=== PATIENT | female | born 1945 | race Caucasian/White ===

== ENCOUNTER 2017-07-30 17:53 | Inpatient (IN) | payer MEDICARE ==
[~2017-07-30] VITALS: Ht 152.4 cm; Wt 58.8 kg
[~2017-07-30 17:53] MED LIST: ASPI-611 PO; CARV3.12 PO; DOCU-28 PO; HYDR12.5 PO; MELO-100 PO; PRAV80TA3 PO; TIZA4CAP PO; WARF2TAB7 PO
[2017-07-30] MEDS ORDERED: normal saline 1000ML IV soln IV ONE ×2 (18:00→19:40)
[2017-07-30 18:19] LABS: HEMATOCRIT 31.9 % (35.0-45.0); HEMOGLOBIN 9.9 g/dl (12.0-16.0); MEAN CORPUSCULAR HEMOGLOBIN 20.5 PG (27.0-31.0); MEAN CORPUSCULAR HGB CONC 31.1 % (33.0-36.5); PLATELET COUNT 334 X10'3 (140-440); RED BLOOD COUNT 4.84 X10'6 (4.20-5.60); RED CELL DISTRIBUTION WIDTH 21.8 % (11.5-14.5); WHITE BLOOD COUNT 11.8 X10'3 (4.5-11.0)
[2017-07-30 18:39] LABS: PROTHROMBIN TIME 113.5 SECONDS (9.0-12.0)
[2017-07-30 18:47] LABS: ALANINE AMINOTRANSFERASE 23 U/L (12-78); ALBUMIN/GLOBULIN RATIO 0.6 (1.1-1.5); ALKALINE PHOSPHATASE 113 IU/L (46-116); ANION GAP 21 (8-16); ASPARTATE AMINO TRANSFERASE 64 U/L (10-37); BILIRUBIN,TOTAL 0.8 MG/DL (0.1-1.0); BLOOD UREA NITROGEN 94 MG/DL (7-18); BUN/CREATININE RATIO 17.8 (6.6-38.0); CALCIUM 9.3 MG/DL (8.5-10.1); CHLORIDE 84 MMOL/L (99-107); CREATININE 5.29 MG/DL (0.40-0.90); GLUCOSE 110 MG/DL (70-104); MAGNESIUM 2.3 MG/DL (1.5-2.4); POTASSIUM 4.3 MMOL/L (3.5-5.1); SODIUM 130 MMOL/L (135-145); TOTAL CARBON DIOXIDE 25.4 MMOL/L (24-32); TOTAL PROTEIN 7.7 G/DL (6.4-8.2); eGFR 8 ML/MIN
[2017-07-30 18:51] LABS: INR > 9.0 INR
[2017-07-30 18:52] LABS: PARTIAL THROMBOPLASTIN TIME 71 SECONDS (22-32)
[2017-07-30 18:54] LABS: CLARITY,URINE Cloudy (Clear); COLOR,URINE Dark Yellow (Yellow); GLUCOSE, URINE Negative (Neg); KETONES,URINE Negative (Neg); LEUKOCYTE ESTERASE ,URINE Trace (Neg); NITRITES, URINE Negative (Neg); OCCULT BLOOD,URINE Moderate (Neg); PROTEIN,URINE 30 mg/dl (Neg)
[2017-07-30 18:55] LABS: UA COLLECTION TYPE FOLEY CATH
[2017-07-30 19:06] LABS: AMORPHOUS URATES 2+; BACTERIA,URINE FEW /HPF (Neg); HYALINE CASTS 0-3 /LPF (NEGATIVE); MUCUS STRANDS FEW /LPF (Neg); RBC,URINE 0-2 /HPF (0-2); SQUAMOUS EPITHELIAL CELL,UR NONE SEEN /LPF (FEW); WBC,URINE NONE SEEN /HPF (0-4)
[2017-07-30 19:18] LABS: TOTAL CELLS COUNTED 100
[2017-07-30 19:19] LABS: ANISOCYTOSIS 3+; MICROCYTOSIS 2+; PLATELET ESTIMATE NORMAL
[2017-07-30 19:20] LABS: TARGET CELLS 1+
[2017-07-30 19:22] LABS: HYPOCHROMASIA 1+; POIKILOCYTOSIS FEW; POLYCHROMASIA 1+
[2017-07-30] MEDS ORDERED: phytonadione inj. 10 MG in normal saline 100ml IV soln 99 ML IV ONE (19:50)
[2017-07-30] MEDS ORDERED: HYDR25TA4 PO (20:20)
[2017-07-30] MEDS ORDERED: PANT40TA4 PO (20:20)
[2017-07-30] MEDS ORDERED: CARV3.122 PO (20:20)
[2017-07-30] MEDS ORDERED: potassium Cl 40MEQ/NS 500ml 500 ML IV PRN ×2 (21:30)
[2017-07-30] MEDS ORDERED: acetaminophen 325mg tablet PO PRN ×2 (21:30)
[2017-07-30] MEDS ORDERED: acetaminophen 650mg rectal suppository RC PRN (21:30)
[2017-07-30] MEDS: K, MAG and/or Phos replacement - Verify level? MC SCH (21:30)
[2017-07-30] MEDS ORDERED: potassium Cl 20 mEq SR tablet PO PRN ×2 (21:30)
[2017-07-30 22:15] VITALS: BP 140/66
[2017-07-30 22:30] VITALS: BP 135/82
[2017-07-30 23:14] VITALS: BP 150/77
[2017-07-31] VITALS (23 sets, daily range): BP systolic 84–175; BP diastolic 63–102
[2017-07-31] MEDS: normal saline 1000ml 1,000 ML IV SCH ×4 (00:21→19:45)
[2017-07-31] MEDS: ondansetron/PF 4mg/2ml inj IV PRN ×2 (01:11→16:59)
[2017-07-31] MEDS ORDERED: piperacillin-tazo 2.25gm/50ml 50 ML IV ONE (02:11)
[2017-07-31] MEDS: piperacillin-tazo 2.25gm/50ml 50 ML IV SCH ×4 (02:46→19:18)
[2017-07-31 05:11] LABS: INR 1.2 INR; PARTIAL THROMBOPLASTIN TIME 39 SECONDS (22-32); PROTHROMBIN TIME 12.8 SECONDS (9.0-12.0)
[2017-07-31 05:13] LABS: BASOPHILS % (AUTO) 0 % (0-1); EOSINOPHILS # (AUTO) 0.1 X10'3 (0-0.9); EOSINOPHILS % (AUTO) 0.7 % (0-6); HEMATOCRIT 25.9 % (35.0-45.0); LYMPHOCYTES # (AUTO) 0.4 X10'3 (1.1-4.8); LYMPHOCYTES % (AUTO) 5.6 % (21-51); MEAN CORPUSCULAR HEMOGLOBIN 20.3 PG (27.0-31.0); MEAN CORPUSCULAR HGB CONC 30.7 % (33.0-36.5); MEAN CORPUSCULAR VOLUME 66.2 FL (78-98); MEAN PLATELET VOLUME 9.7 FL (7.4-10.4); MONOCYTES # (AUTO) 0.6 X10'3 (0-0.9); MONOCYTES % (AUTO) 7.7 % (2-12); NEUTROPHILS # (AUTO) 6.9 X10'3 (1.8-7.7); PLATELET COUNT 312 X10'3 (140-440); RED BLOOD COUNT 3.91 X10'6 (4.20-5.60); RED CELL DISTRIBUTION WIDTH 22.6 % (11.5-14.5)
[2017-07-31 05:18] LABS: ALANINE AMINOTRANSFERASE 14 U/L (12-78); ALBUMIN 2.2 G/DL (3.4-5.0); ALBUMIN/GLOBULIN RATIO 0.6 (1.1-1.5); ALKALINE PHOSPHATASE 81 IU/L (46-116); ANION GAP 19 (8-16); ASPARTATE AMINO TRANSFERASE 42 U/L (10-37); BILIRUBIN,TOTAL 0.6 MG/DL (0.1-1.0); BLOOD UREA NITROGEN 85 MG/DL (7-18); BUN/CREATININE RATIO 20.9 (6.6-38.0); CALCIUM 7.9 MG/DL (8.5-10.1); CHLORIDE 96 MMOL/L (99-107); CREATININE 4.06 MG/DL (0.40-0.90); GLUCOSE 78 MG/DL (70-104); MAGNESIUM 1.9 MG/DL (1.5-2.4); PHOSPHORUS 7.1 MG/DL (2.3-4.5); POTASSIUM 3.8 MMOL/L (3.5-5.1); SODIUM 135 MMOL/L (135-145); TOTAL CARBON DIOXIDE 20.5 MMOL/L (24-32); TOTAL PROTEIN 5.8 G/DL (6.4-8.2); eGFR 11 ML/MIN
[2017-07-31] MEDS: K, MAG and/or Phos replacement - Verify level? MC SCH (07:00)
[2017-07-31] MEDS: pantoprazole 40 MG vial IV SCH (07:39)
[2017-07-31 09:35] LABS: PLATELET ESTIMATE NORMAL
[2017-07-31 09:36] LABS: ANISOCYTOSIS 3+; MICROCYTOSIS 2+
[2017-07-31 09:42] LABS: ELLIPTOCYTES 1+; HYPOCHROMASIA 1+; LARGE PLATELETS FEW; POLYCHROMASIA FEW; TARGET CELLS 2+
[2017-07-31] MEDS ORDERED: ringers solution, lacted 1,000 ML IV ONE (09:55)
[2017-07-31] MEDS: diatr meglu/diatrizoate 30ml oral sol.-(3 dose) bottle PO SCH ×3 (11:02→16:59)
[2017-07-31] MEDS: [UNRECOGNIZED DRUG - OTHER] IV SCH ×3 (11:56→21:19)
[2017-07-31] MEDS: SODIUM BICARBONATE IV SCH ×3 (11:56→21:19)
[2017-07-31] MEDS: POTASSIUM CL IV SCH ×3 (11:56→21:19)
[2017-07-31] MEDS: lactobacillus rhamnosus 10,000 MMU CELLS/CAPSULE PO SCH (12:07)
[2017-07-31] MEDS ORDERED: dextrose 50%-water 50ml dispensing syringe IV ONE (13:40)
[2017-07-31] MEDS ORDERED: clindamycin phosphate 150mg/ml inj. ONE (21:13)
[2017-07-31] MEDS ORDERED: gentamicin 40 MG/1 ML inj ONE (21:13)
[2017-07-31] MEDS ORDERED: fentaNYL/PF 50MCG/1 ML 2ML syringe ONE (21:52)
[2017-07-31] MEDS ORDERED: rocuronium 10mg/ml inj IV ONE ×2 (21:52→23:07)
[2017-07-31] MEDS ORDERED: propofol inj 20 ML IV ONE (21:52)
[2017-08-01] VITALS (26 sets, daily range): BP systolic 92–190; BP diastolic 50–90
[2017-08-01] MEDS ORDERED: ringers solution, lacted 1,000 ML IV SCH (00:39)
[2017-08-01] MEDS ORDERED: normal saline 1000ml 1,000 ML IV ONE ×2 (00:39→15:55)
[2017-08-01] MEDS ORDERED: ondansetron/PF 4mg/2ml inj IV PRN (00:40)
[2017-08-01] MEDS ORDERED: propofol 1000mg/100ml bottle 100 ML IV PRN (01:15)
[2017-08-01] MEDS ORDERED: fentaNYL/NS/PF 2,500mcg/250ml 250 ML IV PRN (01:15)
[2017-08-01 02:06] LABS: ABG BASE EXCESS -10.2 mmol/L (-2.0-3.0); ABG HCO3 16.4 mmol/L (22.0-26.0); ABG OXYGEN SATURATION 93.6 % (95-98); ABG PO2 (T) 78.6 mmHg (83-108); FCOHb 0.6 % (0.5-1.5); FMetHb 0.1 % (0.3-1.12); FO2Hb 92.9 % (94-100); MINUTE VOLUME 6 L/min; PATIENT TEMPERATURE 36.6; PEEP 5 cm H2O; RESPIRATORY RATE 12 b/min; RESPIRATORY RATE (OBSERVED) 12 b/min; TIDAL VOLUME 450 mL; TOTAL HEMOGLOBIN 10.2 G/dl (12.0-16.0)
[2017-08-01 02:27] LABS: BASOPHILS % (AUTO) 0 % (0-1); EOSINOPHILS % (AUTO) 0.2 % (0-6); HEMATOCRIT 31.3 % (35.0-45.0); HEMOGLOBIN 9.6 g/dl (12.0-16.0); LYMPHOCYTES # (AUTO) 0.3 X10'3 (1.1-4.8); LYMPHOCYTES % (AUTO) 3.9 % (21-51); MEAN CORPUSCULAR HEMOGLOBIN 21.5 PG (27.0-31.0); MEAN CORPUSCULAR HGB CONC 30.8 % (33.0-36.5); MEAN CORPUSCULAR VOLUME 69.8 FL (78-98); MEAN PLATELET VOLUME 8.7 FL (7.4-10.4); MONOCYTES # (AUTO) 0.2 X10'3 (0-0.9); MONOCYTES % (AUTO) 3.2 % (2-12); NEUTROPHILS # (AUTO) 6.6 X10'3 (1.8-7.7); NEUTROPHILS % (AUTO) 92.7 % (42-75); PLATELET COUNT 222 X10'3 (140-440); RED BLOOD COUNT 4.49 X10'6 (4.20-5.60); WHITE BLOOD COUNT 7.1 X10'3 (4.5-11.0)
[2017-08-01] MEDS ORDERED: FENTANYL-0.9 % NACL/PF 100 ML IV PRN (02:35)
[2017-08-01 02:44] LABS: ALANINE AMINOTRANSFERASE 14 U/L (12-78); ALBUMIN 1.7 G/DL (3.4-5.0); ALBUMIN/GLOBULIN RATIO 0.5 (1.1-1.5); ALKALINE PHOSPHATASE 59 IU/L (46-116); ANION GAP 15 (8-16); ASPARTATE AMINO TRANSFERASE 30 U/L (10-37); BILIRUBIN,TOTAL 0.7 MG/DL (0.1-1.0); BLOOD UREA NITROGEN 69 MG/DL (7-18); BUN/CREATININE RATIO 22.8 (6.6-38.0); CALCIUM 7.7 MG/DL (8.5-10.1); CHLORIDE 105 MMOL/L (99-107); CREATININE 3.03 MG/DL (0.40-0.90); GLUCOSE 91 MG/DL (70-104); MAGNESIUM 1.6 MG/DL (1.5-2.4); PHOSPHORUS 6.5 MG/DL (2.3-4.5); POTASSIUM 4.4 MMOL/L (3.5-5.1); SODIUM 140 MMOL/L (135-145); TOTAL CARBON DIOXIDE 20.1 MMOL/L (24-32); eGFR 15 ML/MIN
[2017-08-01] MEDS: piperacillin-tazo 2.25gm/50ml 50 ML IV SCH ×4 (02:49→19:26)
[2017-08-01 05:35] LABS: ANISOCYTOSIS 3+; BURR CELLS 1+; ELLIPTOCYTES 1+; HYPOCHROMASIA 1+; MICROCYTOSIS 2+; PLATELET ESTIMATE NORMAL; TARGET CELLS 1+
[2017-08-01] MEDS: lactobacillus rhamnosus 10,000 MMU CELLS/CAPSULE PO SCH ×2 (07:50→17:57)
[2017-08-01] MEDS: pantoprazole 40 MG vial IV SCH (07:50)
[2017-08-01] MEDS: SODIUM BICARBONATE IV SCH ×2 (07:51→19:25)
[2017-08-01] MEDS: [UNRECOGNIZED DRUG - OTHER] IV SCH ×2 (07:51→19:25)
[2017-08-01] MEDS: POTASSIUM CL IV SCH ×2 (07:51→19:25)
[2017-08-01] MEDS: K, MAG and/or Phos replacement - Verify level? MC SCH ×2 (08:00→14:05)
[2017-08-01] MEDS ORDERED: Dextrose 10%-water IV solution 1,000 ML IV PRN (14:02)
[2017-08-01] MEDS ORDERED: potassium Cl 40MEQ/250ML bag 250 ML IV PRN ×2 (14:05)
[2017-08-01] MEDS ORDERED: sodium phosphate inj. 30 MMOL in dextrose 5%-water 250 ML IV PRN (14:05)
[2017-08-01] MEDS ORDERED: magnesium 2GM in 50ml NS 50 ML IV PRN (14:05)
[2017-08-01] MEDS ORDERED: Neutra Phos packet PO PRN (14:05)
[2017-08-01] MEDS ORDERED: sodium phosphate inj. 15 MMOL in dextrose 5%-water 150 ML IV PRN (14:05)
[2017-08-01] MEDS ORDERED: magnesium 4gm in 100ml NS 100 ML IV PRN (14:05)
[2017-08-01] MEDS ORDERED: potassium Cl 20 mEq SR tablet PO PRN ×2 (14:05)
[2017-08-01] MEDS ORDERED: magnesium Cl slow-release 64mg tablet PO PRN (14:05)
[2017-08-01 15:42] LABS: ALANINE AMINOTRANSFERASE 12 U/L (12-78); ALBUMIN 1.4 G/DL (3.4-5.0); ALBUMIN/GLOBULIN RATIO 0.5 (1.1-1.5); ALKALINE PHOSPHATASE 48 IU/L (46-116); ANION GAP 17 (8-16); ASPARTATE AMINO TRANSFERASE 31 U/L (10-37); BILIRUBIN,TOTAL 0.6 MG/DL (0.1-1.0); BLOOD UREA NITROGEN 65 MG/DL (7-18); BUN/CREATININE RATIO 21.6 (6.6-38.0); CALCIUM 7.8 MG/DL (8.5-10.1); CHLORIDE 107 MMOL/L (99-107); CREATININE 3.01 MG/DL (0.40-0.90); GLUCOSE 82 MG/DL (70-104); MAGNESIUM 1.5 MG/DL (1.5-2.4); PHOSPHORUS 5.7 MG/DL (2.3-4.5); POTASSIUM 4.6 MMOL/L (3.5-5.1); PREALBUMIN 8.4 MG/DL (19-36); SODIUM 144 MMOL/L (135-145); TOTAL PROTEIN 4.5 G/DL (6.4-8.2); TRIGLYCERIDES 105 MG/DL (20-135); eGFR 15 ML/MIN
[2017-08-01] MEDS ORDERED: diltiazem-D5W 125mg/125ml 125 ML IV SCH (15:55)
[2017-08-01] MEDS ORDERED: diltiazem 5mg/ml 5ml inj. IV ONE (15:55)
[2017-08-01] MEDS: esmolol/sodium cl bag 250 ML IV SCH (16:41)
[2017-08-01] MEDS: HYDROmorphone inj. 0.5 MG/0.5 ML DISP.SYRIN IV PRN ×2 (16:56→21:53)
[2017-08-02] VITALS (23 sets, daily range): BP systolic 90–133; BP diastolic 54–79
[2017-08-02] MEDS ORDERED: normal saline 1000ml 1,000 ML IV PRN (00:30)
[2017-08-02] MEDS: HYDROmorphone inj. 0.5 MG/0.5 ML DISP.SYRIN IV PRN ×2 (01:20→07:18)
[2017-08-02] MEDS: piperacillin-tazo 2.25gm/50ml 50 ML IV SCH ×4 (01:20→20:15)
[2017-08-02] MEDS ORDERED: HYDROmorphone inj. 0.5 MG/0.5 ML DISP.SYRIN IV ONE (01:30)
[2017-08-02 02:21] LABS: ALANINE AMINOTRANSFERASE 11 U/L (12-78); ALBUMIN 1.4 G/DL (3.4-5.0); ALBUMIN/GLOBULIN RATIO 0.5 (1.1-1.5); ALKALINE PHOSPHATASE 46 IU/L (46-116); ANION GAP 11 (8-16); ASPARTATE AMINO TRANSFERASE 47 U/L (10-37); BILIRUBIN,TOTAL 0.5 MG/DL (0.1-1.0); BLOOD UREA NITROGEN 63 MG/DL (7-18); BUN/CREATININE RATIO 22.7 (6.6-38.0); CALCIUM 7.7 MG/DL (8.5-10.1); CHLORIDE 109 MMOL/L (99-107); CREATININE 2.77 MG/DL (0.40-0.90); GLUCOSE 162 MG/DL (70-104); MAGNESIUM 1.3 MG/DL (1.5-2.4); PHOSPHORUS 5.7 MG/DL (2.3-4.5); POTASSIUM 5.3 MMOL/L (3.5-5.1); SODIUM 141 MMOL/L (135-145); TOTAL CARBON DIOXIDE 21.4 MMOL/L (24-32); TOTAL PROTEIN 4.4 G/DL (6.4-8.2); eGFR 17 ML/MIN
[2017-08-02 02:30] LABS: BASOPHILS % (AUTO) 0.1 % (0-1); EOSINOPHILS % (AUTO) 0.1 % (0-6); HEMATOCRIT 26.1 % (35.0-45.0); HEMOGLOBIN 7.9 g/dl (12.0-16.0); LYMPHOCYTES # (AUTO) 0.5 X10'3 (1.1-4.8); LYMPHOCYTES % (AUTO) 5.1 % (21-51); MEAN CORPUSCULAR HEMOGLOBIN 21.3 PG (27.0-31.0); MEAN CORPUSCULAR HGB CONC 30.4 % (33.0-36.5); MEAN CORPUSCULAR VOLUME 70.2 FL (78-98); MEAN PLATELET VOLUME 10.1 FL (7.4-10.4); MONOCYTES # (AUTO) 0.9 X10'3 (0-0.9); MONOCYTES % (AUTO) 9.2 % (2-12); NEUTROPHILS # (AUTO) 8.8 X10'3 (1.8-7.7); NEUTROPHILS % (AUTO) 85.5 % (42-75); PLATELET COUNT 186 X10'3 (140-440); RED BLOOD COUNT 3.72 X10'6 (4.20-5.60); RED CELL DISTRIBUTION WIDTH 23.7 % (11.5-14.5); WHITE BLOOD COUNT 10.3 X10'3 (4.5-11.0)
[2017-08-02] MEDS: SODIUM BICARBONATE IV SCH (04:26)
[2017-08-02] MEDS: [UNRECOGNIZED DRUG - OTHER] IV SCH (04:26)
[2017-08-02] MEDS: POTASSIUM CL IV SCH (04:26)
[2017-08-02] MEDS: lactobacillus rhamnosus 10,000 MMU CELLS/CAPSULE PO SCH ×2 (07:17→17:21)
[2017-08-02] MEDS: pantoprazole 40 MG vial IV SCH (07:17)
[2017-08-02] MEDS: K, MAG and/or Phos replacement - Verify level? MC SCH (07:41)
[2017-08-02] MEDS ORDERED: dextrose ORAL solution 15 GM/59 ML bottle PO PRN ×2 (13:35)
[2017-08-02] MEDS ORDERED: glucagon, human recombinant 1mg kit SUBCUT PRN (13:35)
[2017-08-02] MEDS ORDERED: albumin (human) 25% 100 ML IV solution IV SCH (13:35)
[2017-08-02] MEDS ORDERED: MESSAGE TO PHARMACY PO ONE (13:35)
[2017-08-02] MEDS ORDERED: dextrose 50%-water 50ml dispensing syringe IV PRN ×2 (13:35)
[2017-08-02 14:16] LABS: OXYGEN SATURATION (MIXED VEN) 70.3 % (60-80); PO2 MIXED VENOUS (TEMP COR) 43.7 mmHg (35-46)
[2017-08-02 14:47] LABS: HEMOGLOBIN A1C 5.8 % (4.5-6.2)
[2017-08-02] MEDS: insulin regular, human vial - multi-dose SQ SCH ×2 (15:20→20:21)
[2017-08-02] MEDS: sodium ferric gluc complex inj 125 MG in normal saline 100ml IV soln 100 ML IV SCH (15:25)
[2017-08-02] MEDS ORDERED: diltiazem-D5W 125mg/125ml 125 ML IV PRN (15:55)
[2017-08-02] MEDS: esmolol/sodium cl bag 250 ML IV SCH (17:22)
[2017-08-02] MEDS: Insulin Detemir pen SQ SCH (20:19)
[2017-08-02 23:55] LABS: BASOPHILS % (AUTO) 0 % (0-1); EOSINOPHILS # (AUTO) 0.2 X10'3 (0-0.9); EOSINOPHILS % (AUTO) 1.3 % (0-6); HEMATOCRIT 24.1 % (35.0-45.0); HEMOGLOBIN 7.4 g/dl (12.0-16.0); LYMPHOCYTES # (AUTO) 0.5 X10'3 (1.1-4.8); LYMPHOCYTES % (AUTO) 4.4 % (21-51); MEAN CORPUSCULAR HEMOGLOBIN 21.4 PG (27.0-31.0); MEAN CORPUSCULAR HGB CONC 30.7 % (33.0-36.5); MEAN CORPUSCULAR VOLUME 69.8 FL (78-98); MEAN PLATELET VOLUME 9.4 FL (7.4-10.4); MONOCYTES # (AUTO) 0.8 X10'3 (0-0.9); MONOCYTES % (AUTO) 6.5 % (2-12); NEUTROPHILS % (AUTO) 87.8 % (42-75); PLATELET COUNT 128 X10'3 (140-440); RED BLOOD COUNT 3.46 X10'6 (4.20-5.60); RED CELL DISTRIBUTION WIDTH 24.6 % (11.5-14.5); WHITE BLOOD COUNT 12.5 X10'3 (4.5-11.0)
[2017-08-03] VITALS (35 sets, daily range): BP systolic 97–166; BP diastolic 45–79
[2017-08-03 00:09] LABS: ALANINE AMINOTRANSFERASE 24 U/L (12-78); ALBUMIN 1.8 G/DL (3.4-5.0); ALBUMIN/GLOBULIN RATIO 0.6 (1.1-1.5); ALKALINE PHOSPHATASE 47 IU/L (46-116); ANION GAP 7 (8-16); ASPARTATE AMINO TRANSFERASE 143 U/L (10-37); BILIRUBIN,TOTAL 0.3 MG/DL (0.1-1.0); BLOOD UREA NITROGEN 74 MG/DL (7-18); BUN/CREATININE RATIO 27.1 (6.6-38.0); CALCIUM 7.6 MG/DL (8.5-10.1); CHLORIDE 108 MMOL/L (99-107); CREATININE 2.73 MG/DL (0.40-0.90); GLUCOSE 149 MG/DL (70-104); MAGNESIUM 2.8 MG/DL (1.5-2.4); SODIUM 139 MMOL/L (135-145); TOTAL CARBON DIOXIDE 24.1 MMOL/L (24-32); TOTAL PROTEIN 4.8 G/DL (6.4-8.2); eGFR 17 ML/MIN
[2017-08-03 00:25] LABS: PARTIAL THROMBOPLASTIN TIME 39 SECONDS (22-32); PROTHROMBIN TIME 10.7 SECONDS (9.0-12.0)
[2017-08-03] MEDS ORDERED: heparin 10,000 units/1 ML INJ ONE (00:45)
[2017-08-03] MEDS ORDERED: ceFAZolin 1000mg inj ONE (00:45)
[2017-08-03] MEDS ORDERED: fentaNYL/PF 50MCG/1 ML 2ML syringe ONE ×2 (01:07→02:14)
[2017-08-03] MEDS ORDERED: midazolam 2 mg/2 ml injection ONE (01:07)
[2017-08-03] MEDS ORDERED: rocuronium 10mg/ml inj IV ONE (01:08)
[2017-08-03] MEDS ORDERED: phenylephrine 10mg/ml inj IV ONE ×2 (01:08→01:11)
[2017-08-03] MEDS ORDERED: etomidate 2mg/ml inj. ONE (01:08)
[2017-08-03] MEDS ORDERED: ringers solution, lacted 1,000 ML IV SCH (01:13)
[2017-08-03] MEDS ORDERED: sevoflurane 250ml liquid IH ONE ×2 (01:15)
[2017-08-03] MEDS ORDERED: heparin 1,000 units/ml 10ml inj ONE (01:15)
[2017-08-03] MEDS ORDERED: ondansetron/PF 4mg/2ml inj IV PRN (01:15)
[2017-08-03] MEDS ORDERED: esmolol 10mg/ml inj IV ONE (01:15)
[2017-08-03 01:46] LABS: ABG BASE EXCESS -8.3 mmol/L (-2.0-3.0); ABG HCO3 18.6 mmol/L (22.0-26.0); ABG PCO2 (T) 45.1 mmHg (32.0-45.0); ABG PH (T) 7.234 (7.350-7.450); ABG PO2 (T) 200.1 mmHg (83-108); FCOHb 0.8 % (0.5-1.5); FMetHb 0.2 % (0.3-1.12); TOTAL HEMOGLOBIN 7.8 G/dl (12.0-16.0)
[2017-08-03] MEDS ORDERED: sodium bicarbonate 1 MEQ/1 ml inj ONE ×2 (01:47)
[2017-08-03] MEDS: piperacillin-tazo 2.25gm/50ml 50 ML IV SCH ×4 (02:00→20:35)
[2017-08-03] MEDS ORDERED: heparin 1,000unit/ml 10ml vial 10 ML ONE (02:04)
[2017-08-03] MEDS ORDERED: MIDAZolam 1mg/ml 10ml vial ONE (02:13)
[2017-08-03 03:22] LABS: NUCLEATED RED BLOOD CELLS 1 /100WBC (0-0); TOTAL CELLS COUNTED 100
[2017-08-03 03:23] LABS: ANISOCYTOSIS 3+; ELLIPTOCYTES 1+; HYPOCHROMASIA 1+; MICROCYTOSIS 2+; PLATELET ESTIMATE DECREASED; TARGET CELLS FEW
[2017-08-03 05:20] LABS: INR 1.2 INR; PROTHROMBIN TIME 11.9 SECONDS (9.0-12.0)
[2017-08-03] MEDS ORDERED: fentaNYL/NS/PF 2,500mcg/250ml 250 ML IV PRN (05:25)
[2017-08-03] MEDS ORDERED: propofol 1000mg/100ml bottle 100 ML IV PRN (05:25)
[2017-08-03] MEDS ORDERED: amiodarone/D5 450MG/250ML BAG 250 ML IV SCH (05:40)
[2017-08-03] MEDS ORDERED: amiodarone 150mg/dext, iso-os 100 ML IV ONE ×2 (05:40→06:30)
[2017-08-03 05:50] LABS: ABG BASE EXCESS -4.6 mmol/L (-2.0-3.0); ABG HCO3 20.8 mmol/L (22.0-26.0); ABG OXYGEN SATURATION 95.3 % (95-98); ABG PCO2 (T) 39.8 mmHg (32.0-45.0); ABG PH (T) 7.337 (7.350-7.450); ABG PO2 (T) 93.7 mmHg (83-108); FCOHb 1.1 % (0.5-1.5); FMetHb 0.3 % (0.3-1.12); MINUTE VOLUME 7 L/min; PEEP 5 cm H2O; RESPIRATORY RATE 12 b/min; RESPIRATORY RATE (OBSERVED) 12 b/min; TIDAL VOLUME 500 mL; TOTAL HEMOGLOBIN 6.3 G/dl (12.0-16.0)
[2017-08-03 06:01] LABS: BASOPHILS % (AUTO) 0.1 % (0-1); EOSINOPHILS # (AUTO) 0.5 X10'3 (0-0.9); EOSINOPHILS % (AUTO) 3.6 % (0-6); LYMPHOCYTES # (AUTO) 0.8 X10'3 (1.1-4.8); LYMPHOCYTES % (AUTO) 5.8 % (21-51); MEAN CORPUSCULAR HEMOGLOBIN 21.6 PG (27.0-31.0); MEAN CORPUSCULAR HGB CONC 30.9 % (33.0-36.5); MEAN CORPUSCULAR VOLUME 69.8 FL (78-98); MEAN PLATELET VOLUME 10.1 FL (7.4-10.4); MONOCYTES % (AUTO) 7.2 % (2-12); NEUTROPHILS # (AUTO) 11.8 X10'3 (1.8-7.7); NEUTROPHILS % (AUTO) 83.3 % (42-75); PLATELET COUNT 119 X10'3 (140-440); RED BLOOD COUNT 2.79 X10'6 (4.20-5.60); RED CELL DISTRIBUTION WIDTH 24.7 % (11.5-14.5); WHITE BLOOD COUNT 14.1 X10'3 (4.5-11.0)
[2017-08-03] MEDS ORDERED: amiodarone/D5 360MG/200ML BAG 250 ML IV SCH (06:35)
[2017-08-03 06:52] LABS: HEMATOCRIT 19.5 % (35.0-45.0)
[2017-08-03 07:11] LABS: ANISOCYTOSIS 3+; BANDS% (MANUAL) 1 % (0-10); EOSINOPHILS % (MANUAL) 4 % (0-6); HYPOCHROMASIA 2+; LYMPHOCYTES % (MANUAL) 4 % (21-51); MICROCYTOSIS 2+; MONOCYTES % (MANUAL) 4 % (2-12); NEUTROPHILS % (MANUAL) 87 % (42-75); NUCLEATED RED BLOOD CELLS 2 /100WBC (0-0); PLATELET ESTIMATE DECREASED; TOTAL CELLS COUNTED 100
[2017-08-03 07:12] LABS: ELLIPTOCYTES FEW; SCHISTOCYTES FEW; TOXIC GRANULATION 1+
[2017-08-03 07:21] LABS: ALANINE AMINOTRANSFERASE 24 U/L (12-78); ALBUMIN 1.9 G/DL (3.4-5.0); ALBUMIN/GLOBULIN RATIO 0.8 (1.1-1.5); ALKALINE PHOSPHATASE 37 IU/L (46-116); ANION GAP 10 (8-16); ASPARTATE AMINO TRANSFERASE 213 U/L (10-37); BILIRUBIN,TOTAL 0.3 MG/DL (0.1-1.0); BLOOD UREA NITROGEN 75 MG/DL (7-18); BUN/CREATININE RATIO 29.5 (6.6-38.0); CALCIUM 7.3 MG/DL (8.5-10.1); CHLORIDE 110 MMOL/L (99-107); CREATININE 2.54 MG/DL (0.40-0.90); GLUCOSE 146 MG/DL (70-104); MAGNESIUM 2.7 MG/DL (1.5-2.4); PHOSPHORUS 5.3 MG/DL (2.3-4.5); POTASSIUM 4.6 MMOL/L (3.5-5.1); PREALBUMIN 8.8 MG/DL (19-36); SODIUM 144 MMOL/L (135-145); TOTAL CARBON DIOXIDE 24.2 MMOL/L (24-32); TOTAL PROTEIN 4.3 G/DL (6.4-8.2); TRIGLYCERIDES 56 MG/DL (20-135); eGFR 19 ML/MIN
[2017-08-03 07:33] LABS: PARTIAL THROMBOPLASTIN TIME 66 SECONDS (22-32)
[2017-08-03] MEDS ORDERED: heparin 10,000 units/1 ML INJ IV PRN (07:55)
[2017-08-03] MEDS: K, MAG and/or Phos replacement - Verify level? MC SCH (08:00)
[2017-08-03] MEDS: pantoprazole 40 MG vial IV SCH (08:28)
[2017-08-03] MEDS: lactobacillus rhamnosus 10,000 MMU CELLS/CAPSULE PO SCH (08:29)
[2017-08-03] MEDS: sodium ferric gluc complex inj 125 MG in normal saline 100ml IV soln 100 ML IV SCH (08:29)
[2017-08-03] MEDS: insulin regular, human vial - multi-dose SQ SCH ×3 (08:48→20:30)
[2017-08-03] MEDS: albumin (human) 25% 100 ML IV solution IV SCH ×2 (11:01→14:00)
[2017-08-03] MEDS: amiodarone/D5 450MG/250ML BAG 250 ML IV SCH (13:01)
[2017-08-03] MEDS: fat emulsion IV 100 ML, MVI, adult No.4 with vit. K 5 ML, Trace element-5 inj. 0.5 ML i... IV SCH ×4 (14:08)
[2017-08-03 18:27] LABS: HEMATOCRIT 30.9 % (35.0-45.0); HEMOGLOBIN 9.9 g/dl (12.0-16.0); MEAN CORPUSCULAR HEMOGLOBIN 24.6 PG (27.0-31.0); MEAN CORPUSCULAR VOLUME 76.7 FL (78-98); MEAN PLATELET VOLUME 11.2 FL (7.4-10.4); PLATELET COUNT 85 X10'3 (140-440); RED BLOOD COUNT 4.02 X10'6 (4.20-5.60); RED CELL DISTRIBUTION WIDTH 24.4 % (11.5-14.5); WHITE BLOOD COUNT 16.6 X10'3 (4.5-11.0)
[2017-08-03] MEDS: FENTANYL-0.9 % NACL/PF 100 ML IV PRN (19:37)
[2017-08-03] MEDS: Insulin Detemir pen SQ SCH (20:28)
[2017-08-04] VITALS (24 sets, daily range): BP systolic 134–170; BP diastolic 60–75
[2017-08-04] MEDS: fat emulsion IV 100 ML, MVI, adult No.4 with vit. K 5 ML, Trace element-5 inj. 0.5 ML i... IV SCH ×8 (01:00→15:36)
[2017-08-04] MEDS: amiodarone/D5 450MG/250ML BAG 250 ML IV SCH ×2 (01:01→16:38)
[2017-08-04] MEDS: piperacillin-tazo 2.25gm/50ml 50 ML IV SCH ×4 (02:21→19:57)
[2017-08-04] MEDS: insulin regular, human vial - multi-dose SQ SCH ×3 (02:26→20:03)
[2017-08-04] MEDS: argatroban in NS 50mg/50ml 50 ML IV SCH ×3 (02:55→07:03)
[2017-08-04 03:03] LABS: BASOPHILS % (AUTO) 0.1 % (0-1); EOSINOPHILS # (AUTO) 0.1 X10'3 (0-0.9); EOSINOPHILS % (AUTO) 0.4 % (0-6); HEMATOCRIT 29.4 % (35.0-45.0); HEMOGLOBIN 9.5 g/dl (12.0-16.0); LYMPHOCYTES # (AUTO) 0.7 X10'3 (1.1-4.8); MEAN CORPUSCULAR HEMOGLOBIN 24.8 PG (27.0-31.0); MEAN CORPUSCULAR HGB CONC 32.4 % (33.0-36.5); MEAN CORPUSCULAR VOLUME 76.4 FL (78-98); MEAN PLATELET VOLUME 11.8 FL (7.4-10.4); MONOCYTES # (AUTO) 1.5 X10'3 (0-0.9); MONOCYTES % (AUTO) 9.1 % (2-12); NEUTROPHILS # (AUTO) 14.2 X10'3 (1.8-7.7); NEUTROPHILS % (AUTO) 86.4 % (42-75); PLATELET COUNT 72 X10'3 (140-440); RED BLOOD COUNT 3.85 X10'6 (4.20-5.60); RED CELL DISTRIBUTION WIDTH 24.5 % (11.5-14.5); WHITE BLOOD COUNT 16.4 X10'3 (4.5-11.0)
[2017-08-04 03:15] LABS: ABG BASE EXCESS -6.6 mmol/L (-2.0-3.0); ABG HCO3 18.8 mmol/L (22.0-26.0); ABG OXYGEN SATURATION 93.6 % (95-98); ABG PCO2 (T) 37.4 mmHg (32.0-45.0); ABG PO2 (T) 78.4 mmHg (83-108); FMetHb 0.2 % (0.3-1.12); FO2Hb 93.4 % (94-100); MINUTE VOLUME 7 L/min; PATIENT TEMPERATURE 37.2; PEEP 5 cm H2O; RESPIRATORY RATE 12 b/min; RESPIRATORY RATE (OBSERVED) 12 b/min; TIDAL VOLUME 400 mL
[2017-08-04 03:22] LABS: LARGE PLATELETS FEW
[2017-08-04 03:23] LABS: PLATELET ESTIMATE DECREASED
[2017-08-04 03:30] LABS: PARTIAL THROMBOPLASTIN TIME 98 SECONDS (22-32)
[2017-08-04 03:33] LABS: ALANINE AMINOTRANSFERASE 53 U/L (12-78); ALBUMIN 1.8 G/DL (3.4-5.0); ALBUMIN/GLOBULIN RATIO 0.7 (1.1-1.5); ALKALINE PHOSPHATASE 44 IU/L (46-116); ANION GAP 10 (8-16); ASPARTATE AMINO TRANSFERASE 374 U/L (10-37); BILIRUBIN,TOTAL 0.4 MG/DL (0.1-1.0); BLOOD UREA NITROGEN 82 MG/DL (7-18); BUN/CREATININE RATIO 32.3 (6.6-38.0); CALCIUM 7.4 MG/DL (8.5-10.1); CHLORIDE 108 MMOL/L (99-107); CREATININE 2.54 MG/DL (0.40-0.90); GLUCOSE 116 MG/DL (70-104); MAGNESIUM 2.4 MG/DL (1.5-2.4); PHOSPHORUS 5.7 MG/DL (2.3-4.5); POTASSIUM 4.4 MMOL/L (3.5-5.1); SODIUM 142 MMOL/L (135-145); TOTAL CARBON DIOXIDE 24.5 MMOL/L (24-32); TOTAL PROTEIN 4.3 G/DL (6.4-8.2); eGFR 19 ML/MIN
[2017-08-04] MEDS: albumin (human) 25% 100 ML IV solution IV SCH ×2 (04:57→10:00)
[2017-08-04] MEDS: FENTANYL-0.9 % NACL/PF 100 ML IV PRN (06:47)
[2017-08-04] MEDS: LACTOBACILLUS RHAMNOSUS GG 15 billion unit sprinkle caps PO SCH (08:00)
[2017-08-04] MEDS: K, MAG and/or Phos replacement - Verify level? MC SCH (08:00)
[2017-08-04] MEDS: sodium ferric gluc complex inj 125 MG in normal saline 100ml IV soln 100 ML IV SCH (08:00)
[2017-08-04] MEDS: pantoprazole 40 MG vial IV SCH (08:00)
[2017-08-04 08:02] LABS: PARTIAL THROMBOPLASTIN TIME 120 SECONDS (22-32)
[2017-08-04 09:35] LABS: HEMATOCRIT 26.5 % (35.0-45.0); HEMOGLOBIN 8.6 g/dl (12.0-16.0); MEAN CORPUSCULAR HEMOGLOBIN 24.7 PG (27.0-31.0); MEAN CORPUSCULAR HGB CONC 32.3 % (33.0-36.5); MEAN CORPUSCULAR VOLUME 76.6 FL (78-98); MEAN PLATELET VOLUME 9.9 FL (7.4-10.4); PLATELET COUNT 55 X10'3 (140-440); RED BLOOD COUNT 3.46 X10'6 (4.20-5.60); RED CELL DISTRIBUTION WIDTH 24.3 % (11.5-14.5); WHITE BLOOD COUNT 16.2 X10'3 (4.5-11.0)
[2017-08-04 11:11] LABS: PARTIAL THROMBOPLASTIN TIME > 153 SECONDS (22-32)
[2017-08-04] MEDS ORDERED: albumin (human) 25% 100 ML IV solution IV ONE (12:15)
[2017-08-04] MEDS: methylnaltrexone br 12mg/0.6ml inj***SubQ only SQ SCH (12:20)
[2017-08-04 12:39] LABS: PARTIAL THROMBOPLASTIN TIME > 153 SECONDS (22-32)
[2017-08-04] MEDS: LORazepam 2 mg/ml vial IV PRN ×2 (12:48→17:26)
[2017-08-04] MEDS: HYDROmorphone inj. 0.5 MG/0.5 ML DISP.SYRIN IV PRN (14:57)
[2017-08-04 16:23] LABS: PARTIAL THROMBOPLASTIN TIME 106 SECONDS (22-32)
[2017-08-04 17:54] LABS: PARTIAL THROMBOPLASTIN TIME 99 SECONDS (22-32)
[2017-08-04 18:33] LABS: HEMATOCRIT 25.3 % (35.0-45.0); HEMOGLOBIN 8.1 g/dl (12.0-16.0); MEAN CORPUSCULAR HEMOGLOBIN 24.7 PG (27.0-31.0); MEAN CORPUSCULAR HGB CONC 32.2 % (33.0-36.5); MEAN CORPUSCULAR VOLUME 76.8 FL (78-98); MEAN PLATELET VOLUME 9.9 FL (7.4-10.4); PLATELET COUNT 59 X10'3 (140-440); RED BLOOD COUNT 3.29 X10'6 (4.20-5.60); RED CELL DISTRIBUTION WIDTH 25.5 % (11.5-14.5); WHITE BLOOD COUNT 19.9 X10'3 (4.5-11.0)
[2017-08-04] MEDS: Insulin Detemir pen SQ SCH (20:03)
[2017-08-04 20:22] LABS: PARTIAL THROMBOPLASTIN TIME 87 SECONDS (22-32)
[2017-08-04 22:40] LABS: PARTIAL THROMBOPLASTIN TIME 84 SECONDS (22-32)
[2017-08-05] VITALS (24 sets, daily range): BP systolic 144–188; BP diastolic 60–86
[2017-08-05] MEDS: piperacillin-tazo 2.25gm/50ml 50 ML IV SCH ×4 (02:28→19:32)
[2017-08-05] MEDS: insulin regular, human vial - multi-dose SQ SCH ×4 (02:29→20:36)
[2017-08-05 02:32] LABS: HEMOGLOBIN 8.2 g/dl (12.0-16.0); MEAN CORPUSCULAR HGB CONC 32.8 % (33.0-36.5); MEAN CORPUSCULAR VOLUME 76.4 FL (78-98); MEAN PLATELET VOLUME 10.3 FL (7.4-10.4); PLATELET COUNT 54 X10'3 (140-440); RED BLOOD COUNT 3.28 X10'6 (4.20-5.60); RED CELL DISTRIBUTION WIDTH 25.5 % (11.5-14.5); WHITE BLOOD COUNT 20.2 X10'3 (4.5-11.0)
[2017-08-05 02:40] LABS: PARTIAL THROMBOPLASTIN TIME 68 SECONDS (22-32)
[2017-08-05 03:21] LABS: ABG BASE EXCESS -5.4 mmol/L (-2.0-3.0); ABG OXYGEN SATURATION 94.9 % (95-98); ABG PCO2 (T) 33.3 mmHg (32.0-45.0); ABG PH (T) 7.376 (7.350-7.450); ABG PO2 (T) 83.3 mmHg (83-108); FCOHb 0.4 % (0.5-1.5); FO2Hb 94.5 % (94-100); MINUTE VOLUME 6 L/min; PATIENT TEMPERATURE 37.2; PEEP 5 cm H2O; RESPIRATORY RATE 12 b/min; RESPIRATORY RATE (OBSERVED) 15 b/min; TIDAL VOLUME 500 mL; TOTAL HEMOGLOBIN 8.8 G/dl (12.0-16.0)
[2017-08-05] MEDS: fat emulsion IV 100 ML, MVI, adult No.4 with vit. K 5 ML, Trace element-5 inj. 0.5 ML i... IV SCH ×8 (03:36→17:06)
[2017-08-05 05:01] LABS: BASOPHILS % (AUTO) 0 % (0-1); EOSINOPHILS # (AUTO) 0.6 X10'3 (0-0.9); EOSINOPHILS % (AUTO) 3.2 % (0-6); HEMOGLOBIN 7.9 g/dl (12.0-16.0); LYMPHOCYTES # (AUTO) 0.6 X10'3 (1.1-4.8); LYMPHOCYTES % (AUTO) 2.8 % (21-51); MEAN CORPUSCULAR HGB CONC 32.8 % (33.0-36.5); MEAN CORPUSCULAR VOLUME 76.1 FL (78-98); MEAN PLATELET VOLUME 10.3 FL (7.4-10.4); MONOCYTES # (AUTO) 0.7 X10'3 (0-0.9); MONOCYTES % (AUTO) 3.6 % (2-12); NEUTROPHILS # (AUTO) 18.1 X10'3 (1.8-7.7); NEUTROPHILS % (AUTO) 90.4 % (42-75); PLATELET COUNT 57 X10'3 (140-440); RED BLOOD COUNT 3.16 X10'6 (4.20-5.60); RED CELL DISTRIBUTION WIDTH 25.4 % (11.5-14.5)
[2017-08-05 05:26] LABS: ALANINE AMINOTRANSFERASE 46 U/L (12-78); ALBUMIN/GLOBULIN RATIO 0.8 (1.1-1.5); ALKALINE PHOSPHATASE 52 IU/L (46-116); ANION GAP 10 (8-16); ASPARTATE AMINO TRANSFERASE 281 U/L (10-37); BILIRUBIN,TOTAL 0.4 MG/DL (0.1-1.0); BLOOD UREA NITROGEN 93 MG/DL (7-18); BUN/CREATININE RATIO 36.3 (6.6-38.0); CALCIUM 7.7 MG/DL (8.5-10.1); CHLORIDE 104 MMOL/L (99-107); CREATININE 2.56 MG/DL (0.40-0.90); GLUCOSE 94 MG/DL (70-104); MAGNESIUM 2.1 MG/DL (1.5-2.4); PHOSPHORUS 6.3 MG/DL (2.3-4.5); POTASSIUM 3.8 MMOL/L (3.5-5.1); SODIUM 138 MMOL/L (135-145); TOTAL CARBON DIOXIDE 24.3 MMOL/L (24-32); TOTAL PROTEIN 4.4 G/DL (6.4-8.2); eGFR 18 ML/MIN
[2017-08-05 05:31] LABS: PARTIAL THROMBOPLASTIN TIME 89 SECONDS (22-32)
[2017-08-05] MEDS: argatroban in NS 50mg/50ml 50 ML IV SCH ×4 (05:39→17:06)
[2017-08-05] MEDS: K, MAG and/or Phos replacement - Verify level? MC SCH (07:49)
[2017-08-05] MEDS: amiodarone/D5 450MG/250ML BAG 250 ML IV SCH ×2 (08:13→21:32)
[2017-08-05 08:30] LABS: PARTIAL THROMBOPLASTIN TIME 77 SECONDS (22-32)
[2017-08-05] MEDS: sodium ferric gluc complex inj 125 MG in normal saline 100ml IV soln 100 ML IV SCH (08:55)
[2017-08-05] MEDS: LACTOBACILLUS RHAMNOSUS GG 15 billion unit sprinkle caps PO SCH (08:55)
[2017-08-05] MEDS: pantoprazole 40 MG vial IV SCH (08:55)
[2017-08-05 08:58] LABS: HEMOGLOBIN 8.2 g/dl (12.0-16.0); MEAN CORPUSCULAR HEMOGLOBIN 25.1 PG (27.0-31.0); MEAN CORPUSCULAR HGB CONC 32.8 % (33.0-36.5); MEAN CORPUSCULAR VOLUME 76.4 FL (78-98); MEAN PLATELET VOLUME 10.1 FL (7.4-10.4); PLATELET COUNT 59 X10'3 (140-440); RED BLOOD COUNT 3.27 X10'6 (4.20-5.60); WHITE BLOOD COUNT 21.7 X10'3 (4.5-11.0)
[2017-08-05] MEDS ORDERED: metoclopramide 5 mg/ml inj IV PRN (10:50)
[2017-08-05] MEDS: HYDROmorphone 1 mg/ml syringe IV PRN ×6 (11:27→23:53)
[2017-08-05 17:47] LABS: HEMATOCRIT 25.4 % (35.0-45.0); HEMOGLOBIN 8.3 g/dl (12.0-16.0); MEAN CORPUSCULAR HEMOGLOBIN 25.1 PG (27.0-31.0); MEAN CORPUSCULAR HGB CONC 32.7 % (33.0-36.5); MEAN CORPUSCULAR VOLUME 76.8 FL (78-98); MEAN PLATELET VOLUME 10.9 FL (7.4-10.4); PLATELET COUNT 67 X10'3 (140-440); RED CELL DISTRIBUTION WIDTH 25.7 % (11.5-14.5); WHITE BLOOD COUNT 24.9 X10'3 (4.5-11.0)
[2017-08-05] MEDS: Insulin Detemir pen SQ SCH (20:37)
[2017-08-06] VITALS (24 sets, daily range): BP systolic 100–180; BP diastolic 50–97
[2017-08-06] MEDS: piperacillin-tazo 2.25gm/50ml 50 ML IV SCH ×4 (01:54→20:16)
[2017-08-06] MEDS: insulin regular, human vial - multi-dose SQ SCH ×2 (01:58→20:23)
[2017-08-06] MEDS ORDERED: hydrALAZINE 20mg/ml inj. IV ONE (02:20)
[2017-08-06 02:45] LABS: BASOPHILS % (AUTO) 0 % (0-1); EOSINOPHILS # (AUTO) 0.9 X10'3 (0-0.9); EOSINOPHILS % (AUTO) 3.5 % (0-6); HEMATOCRIT 26.9 % (35.0-45.0); HEMOGLOBIN 8.7 g/dl (12.0-16.0); LYMPHOCYTES # (AUTO) 0.7 X10'3 (1.1-4.8); LYMPHOCYTES % (AUTO) 2.8 % (21-51); MEAN CORPUSCULAR HGB CONC 32.4 % (33.0-36.5); MEAN CORPUSCULAR VOLUME 77.2 FL (78-98); MEAN PLATELET VOLUME 14.3 FL (7.4-10.4); MONOCYTES # (AUTO) 0.3 X10'3 (0-0.9); MONOCYTES % (AUTO) 1.3 % (2-12); NEUTROPHILS # (AUTO) 22.8 X10'3 (1.8-7.7); NEUTROPHILS % (AUTO) 92.4 % (42-75); PLATELET COUNT 98 X10'3 (140-440); RED BLOOD COUNT 3.48 X10'6 (4.20-5.60); RED CELL DISTRIBUTION WIDTH 26.1 % (11.5-14.5); WHITE BLOOD COUNT 24.7 X10'3 (4.5-11.0)
[2017-08-06 03:55] LABS: ALANINE AMINOTRANSFERASE 43 U/L (12-78); ALBUMIN 1.9 G/DL (3.4-5.0); ALBUMIN/GLOBULIN RATIO 0.6 (1.1-1.5); ALKALINE PHOSPHATASE 69 IU/L (46-116); ANION GAP 11 (8-16); ASPARTATE AMINO TRANSFERASE 224 U/L (10-37); BILIRUBIN,TOTAL 0.4 MG/DL (0.1-1.0); BLOOD UREA NITROGEN 95 MG/DL (7-18); BUN/CREATININE RATIO 37.1 (6.6-38.0); CALCIUM 7.9 MG/DL (8.5-10.1); CHLORIDE 102 MMOL/L (99-107); CREATININE 2.56 MG/DL (0.40-0.90); GLUCOSE 104 MG/DL (70-104); PHOSPHORUS 6.8 MG/DL (2.3-4.5); POTASSIUM 3.8 MMOL/L (3.5-5.1); SODIUM 136 MMOL/L (135-145); TOTAL CARBON DIOXIDE 22.6 MMOL/L (24-32); TOTAL PROTEIN 5.1 G/DL (6.4-8.2); eGFR 18 ML/MIN
[2017-08-06 03:57] LABS: ANISOCYTOSIS 3+; NUCLEATED RED BLOOD CELLS 1 /100WBC (0-0); PLATELET ESTIMATE DECREASED; TOTAL CELLS COUNTED 100
[2017-08-06 03:58] LABS: ELLIPTOCYTES 1+; POLYCHROMASIA FEW; TARGET CELLS FEW
[2017-08-06 03:59] LABS: POIKILOCYTOSIS 1+; SCHISTOCYTES FEW; TEAR DROP CELLS FEW
[2017-08-06] MEDS: LACTOBACILLUS RHAMNOSUS GG 15 billion unit sprinkle caps PO SCH (07:30)
[2017-08-06] MEDS: pantoprazole 40 MG vial IV SCH (07:34)
[2017-08-06] MEDS: methylnaltrexone br 12mg/0.6ml inj***SubQ only SQ SCH (07:34)
[2017-08-06] MEDS: K, MAG and/or Phos replacement - Verify level? MC SCH (07:47)
[2017-08-06] MEDS: sodium ferric gluc complex inj 125 MG in normal saline 100ml IV soln 100 ML IV SCH (08:24)
[2017-08-06] MEDS: HYDROmorphone 1 mg/ml syringe IV PRN ×5 (08:26→20:17)
[2017-08-06] MEDS ORDERED: fat emulsion IV 100 ML, MVI, adult No.4 with vit. K 5 ML, Trace element-5 inj. 0.5 ML i... IV SCH ×4 (14:02)
[2017-08-06] MEDS: hydrALAZINE 20mg/ml inj. IV PRN (14:43)
[2017-08-06 14:56] LABS: CREATININE,URINE RANDOM 16.3 MG/DL; TOTAL PROTEIN,URINE RANDOM 36.7 MG/DL
[2017-08-06] MEDS: Insulin Detemir pen SQ SCH (20:23)
[2017-08-06] MEDS ORDERED: amiodarone inj. 450 MG in dextrose 5%-water 241 ML IV SCH (22:05)
[2017-08-06] MEDS: amiodarone/D5 450MG/250ML BAG 250 ML IV SCH (23:04)
[2017-08-06 23:48] LABS: PARTIAL THROMBOPLASTIN TIME 50 SECONDS (22-32); PROTHROMBIN TIME 10.7 SECONDS (9.0-12.0)
[2017-08-07] VITALS (22 sets, daily range): BP systolic 111–170; BP diastolic 42–86
[2017-08-07] MEDS: piperacillin-tazo 2.25gm/50ml 50 ML IV SCH ×4 (02:24→21:34)
[2017-08-07] MEDS: HYDROmorphone 1 mg/ml syringe IV PRN ×4 (02:34→22:48)
[2017-08-07 03:17] LABS: BASOPHILS % (AUTO) 0 % (0-1); EOSINOPHILS # (AUTO) 0.5 X10'3 (0-0.9); HEMATOCRIT 27.9 % (35.0-45.0); HEMOGLOBIN 8.9 g/dl (12.0-16.0); LYMPHOCYTES # (AUTO) 0.7 X10'3 (1.1-4.8); LYMPHOCYTES % (AUTO) 2.9 % (21-51); MEAN CORPUSCULAR HEMOGLOBIN 24.7 PG (27.0-31.0); MEAN CORPUSCULAR HGB CONC 31.7 % (33.0-36.5); MEAN CORPUSCULAR VOLUME 77.8 FL (78-98); MEAN PLATELET VOLUME 10.1 FL (7.4-10.4); MONOCYTES # (AUTO) 1.4 X10'3 (0-0.9); MONOCYTES % (AUTO) 6.1 % (2-12); NEUTROPHILS # (AUTO) 20.7 X10'3 (1.8-7.7); PLATELET COUNT 92 X10'3 (140-440); RED BLOOD COUNT 3.59 X10'6 (4.20-5.60); RED CELL DISTRIBUTION WIDTH 26.5 % (11.5-14.5); WHITE BLOOD COUNT 23.2 X10'3 (4.5-11.0)
[2017-08-07 03:42] LABS: ALANINE AMINOTRANSFERASE 25 U/L (12-78); ALBUMIN 1.7 G/DL (3.4-5.0); ALBUMIN/GLOBULIN RATIO 0.5 (1.1-1.5); ALKALINE PHOSPHATASE 66 IU/L (46-116); ANION GAP 13 (8-16); ASPARTATE AMINO TRANSFERASE 173 U/L (10-37); BILIRUBIN,TOTAL 0.4 MG/DL (0.1-1.0); BLOOD UREA NITROGEN 97 MG/DL (7-18); BUN/CREATININE RATIO 42.4 (6.6-38.0); CALCIUM 7.9 MG/DL (8.5-10.1); CHLORIDE 103 MMOL/L (99-107); CREATININE 2.29 MG/DL (0.40-0.90); GLUCOSE 97 MG/DL (70-104); MAGNESIUM 1.7 MG/DL (1.5-2.4); POTASSIUM 3.5 MMOL/L (3.5-5.1); PREALBUMIN 10.7 MG/DL (19-36); SODIUM 137 MMOL/L (135-145); TOTAL CARBON DIOXIDE 21.4 MMOL/L (24-32); TRIGLYCERIDES 122 MG/DL (20-135); eGFR 21 ML/MIN
[2017-08-07 06:09] LABS: ANISOCYTOSIS 3+; PLATELET ESTIMATE DECREASED; POIKILOCYTOSIS 1+; POLYCHROMASIA FEW; TOTAL CELLS COUNTED 100
[2017-08-07 06:10] LABS: ELLIPTOCYTES FEW; SCHISTOCYTES FEW; TARGET CELLS FEW; TEAR DROP CELLS 1+
[2017-08-07 06:39] LABS: UREA NITROGEN 24HR,URINE 11.2 GM/24HR (7-20)
[2017-08-07] MEDS: argatroban in NS 50mg/50ml 50 ML IV SCH ×3 (06:54→21:49)
[2017-08-07] MEDS: K, MAG and/or Phos replacement - Verify level? MC SCH (07:15)
[2017-08-07] MEDS ORDERED: methylnaltrexone br 12mg/0.6ml inj***SubQ only SQ SCH (08:00)
[2017-08-07] MEDS: pantoprazole 40 MG vial IV SCH (08:32)
[2017-08-07] MEDS: LACTOBACILLUS RHAMNOSUS GG 15 billion unit sprinkle caps PO SCH (08:32)
[2017-08-07] MEDS: sodium ferric gluc complex inj 125 MG in normal saline 100ml IV soln 100 ML IV SCH (08:40)
[2017-08-07] MEDS ORDERED: COU1T PO (12:20)
[2017-08-07] MEDS ORDERED: HYDR-565 PO (12:28)
[2017-08-07] MEDS ORDERED: METH750T3 PO (12:28)
[2017-08-07] MEDS ORDERED: HYDR25TA4 PO (12:29)
[2017-08-07] MEDS ORDERED: WARF3TAB7 PO (12:37)
[2017-08-07] MEDS ORDERED: HYDR-3972 PO (12:39)
[2017-08-07] MEDS: amiodarone/D5 450MG/250ML BAG 250 ML IV SCH (13:19)
[2017-08-07] MEDS ORDERED: amiodarone 200mg tablet PO ONE (16:25)
[2017-08-07] MEDS: hydrALAZINE 20mg/ml inj. IV PRN (18:36)
[2017-08-07 21:36] LABS: PARTIAL THROMBOPLASTIN TIME 38 SECONDS (22-32)
[2017-08-08 00:05] LABS: PARTIAL THROMBOPLASTIN TIME 31 SECONDS (22-32)
[2017-08-08] MEDS: argatroban in NS 50mg/50ml 50 ML IV SCH ×3 (00:19→05:05)
[2017-08-08] MEDS: HYDROmorphone 1 mg/ml syringe IV PRN ×3 (02:46→14:02)
[2017-08-08] MEDS: piperacillin-tazo 2.25gm/50ml 50 ML IV SCH ×2 (02:51→07:28)
[2017-08-08 03:45] VITALS: BP 124/82
[2017-08-08 04:42] LABS: BASOPHILS % (AUTO) 0 % (0-1); EOSINOPHILS # (AUTO) 0.4 X10'3 (0-0.9); EOSINOPHILS % (AUTO) 2.2 % (0-6); HEMATOCRIT 26.1 % (35.0-45.0); HEMOGLOBIN 8.4 g/dl (12.0-16.0); LYMPHOCYTES # (AUTO) 0.7 X10'3 (1.1-4.8); LYMPHOCYTES % (AUTO) 4.4 % (21-51); MEAN CORPUSCULAR HEMOGLOBIN 24.9 PG (27.0-31.0); MEAN CORPUSCULAR HGB CONC 32.1 % (33.0-36.5); MEAN CORPUSCULAR VOLUME 77.4 FL (78-98); MEAN PLATELET VOLUME 12.2 FL (7.4-10.4); MONOCYTES % (AUTO) 5.9 % (2-12); NEUTROPHILS # (AUTO) 14.3 X10'3 (1.8-7.7); NEUTROPHILS % (AUTO) 87.5 % (42-75); PLATELET COUNT 168 X10'3 (140-440); RED BLOOD COUNT 3.37 X10'6 (4.20-5.60); RED CELL DISTRIBUTION WIDTH 27.5 % (11.5-14.5); WHITE BLOOD COUNT 16.4 X10'3 (4.5-11.0)
[2017-08-08 04:50] LABS: PARTIAL THROMBOPLASTIN TIME 34 SECONDS (22-32)
[2017-08-08 05:03] LABS: TOTAL CELLS COUNTED 100
[2017-08-08 05:04] LABS: ANISOCYTOSIS 3+; PLATELET ESTIMATE NORMAL
[2017-08-08 05:05] LABS: ELLIPTOCYTES FEW; GIANT PLATELET FEW; LARGE PLATELETS FEW; POIKILOCYTOSIS FEW; POLYCHROMASIA FEW; SCHISTOCYTES FEW; TARGET CELLS FEW; TEAR DROP CELLS FEW
[2017-08-08 07:00] VITALS: BP 112/80
[2017-08-08] MEDS: pantoprazole 40 MG vial IV SCH (07:25)
[2017-08-08] MEDS: LACTOBACILLUS RHAMNOSUS GG 15 billion unit sprinkle caps PO SCH (07:26)
[2017-08-08 07:40] LABS: PARTIAL THROMBOPLASTIN TIME 73 SECONDS (22-32)
[2017-08-08] MEDS: sodium ferric gluc complex inj 125 MG in normal saline 100ml IV soln 100 ML IV SCH (07:40)
[2017-08-08] MEDS ORDERED: HYDROcodone/acetaminophen 10/325mg tab PO PRN ×2 (07:40→07:55)
[2017-08-08] MEDS ORDERED: levoFLOXACIN 250mg tablet PO SCH (08:00)
[2017-08-08] MEDS ORDERED: amiodarone 200mg tablet PO SCH (08:00)
[2017-08-08] MEDS: methylnaltrexone br 12mg/0.6ml inj***SubQ only SQ SCH (08:00)
[2017-08-08] MEDS: K, MAG and/or Phos replacement - Verify level? MC SCH (08:00)
[2017-08-08] MEDS ORDERED: apixaban 2.5mg tablet PO SCH ×2 (08:00)
[2017-08-08 11:00] VITALS: BP 139/79
[2017-08-09] MEDS ORDERED: pantoprazole 40mg Tablet.DR PO SCH ×2 (07:30)
== END 2017-08-08 14:00 | DRG 329 ==
LOC: ER 17:53 → ED HOLD 21:28 → CICU 2S 23:51 → PCU 3S 08-07 20:05
PROVIDERS: ADMIT Internal Medicine Critical Care Medicine; ATTEND Internal Medicine Critical Care Medicine
PROC: 30233L1 Transfusion of Nonautologous Fresh Plasma into Peripheral Vein, Percutaneous Approach (ICD-10-PCS; 2017-07-30)
PROC: 30233K1 Transfusion of Nonautologous Frozen Plasma into Peripheral Vein, Percutaneous Approach (ICD-10-PCS; 2017-07-30)
PROC: 0DBN0ZZ Excision of Sigmoid Colon, Open Approach (ICD-10-PCS; 2017-07-31)
PROC: 0D1N0Z4 Bypass Sigmoid Colon to Cutaneous, Open Approach (ICD-10-PCS; 2017-07-31)
PROC: 0DNW0ZZ Release Peritoneum, Open Approach (ICD-10-PCS; 2017-07-31)
PROC: 30233N1 Transfusion of Nonautologous Red Blood Cells into Peripheral Vein, Percutaneous Approach (ICD-10-PCS; 2017-07-31)
PROC: 0DB80ZZ Excision of Small Intestine, Open Approach (ICD-10-PCS; principal; 2017-07-31 21:49)
PROC: 3E0436Z Introduction of Nutritional Substance into Central Vein, Percutaneous Approach (ICD-10-PCS; 2017-08-01)
PROC: 02HV33Z Insertion of Infusion Device into Superior Vena Cava, Percutaneous Approach (ICD-10-PCS; 2017-08-01)
PROC: 5A1945Z Respiratory Ventilation, 24-96 Consecutive Hours (ICD-10-PCS; 2017-08-03)
PROC: 04CK0ZZ Extirpation of Matter from Right Femoral Artery, Open Approach (ICD-10-PCS; 2017-08-03)
PROC: 04UK0JZ Supplement Right Femoral Artery with Synthetic Substitute, Open Approach (ICD-10-PCS; 2017-08-03)
PROC: 041K0JL Bypass Right Femoral Artery to Popliteal Artery with Synthetic Substitute, Open Approach (ICD-10-PCS; 2017-08-03)
PROC: 0KNS0ZZ Release Right Lower Leg Muscle, Open Approach (ICD-10-PCS; 2017-08-03)
PROC: 0KNS0ZZ Release Right Lower Leg Muscle, Open Approach (ICD-10-PCS; 2017-08-03)
PROC: 0KNS0ZZ Release Right Lower Leg Muscle, Open Approach (ICD-10-PCS; 2017-08-03)
PROC: 0KNS0ZZ Release Right Lower Leg Muscle, Open Approach (ICD-10-PCS; 2017-08-03)
DX: K57.20 Diverticulitis of large intestine with perforation and abscess without bleeding (principal); J96.91 Respiratory failure, unspecified with hypoxia; K56.609 Unspecified intestinal obstruction, unspecified as to partial versus complete obstruction; N17.9 Acute kidney failure, unspecified; I74.3 Embolism and thrombosis of arteries of the lower extremities; E87.2 Acidosis; J44.9 Chronic obstructive pulmonary disease, unspecified; D68.9 Coagulation defect, unspecified; I12.0 Hypertensive chronic kidney disease with stage 5 chronic kidney disease or end stage renal disease; E87.1 Hypo-osmolality and hyponatremia; N18.5 Chronic kidney disease, stage 5; I48.91 Unspecified atrial fibrillation; D50.9 Iron deficiency anemia, unspecified; G89.4 Chronic pain syndrome; K21.9 Gastro-esophageal reflux disease without esophagitis; M06.9 Rheumatoid arthritis, unspecified; R62.7 Adult failure to thrive; M54.9 Dorsalgia, unspecified; R73.9 Hyperglycemia, unspecified; Z99.81 Dependence on supplemental oxygen; Z90.49 Acquired absence of other specified parts of digestive tract; Z79.01 Long term (current) use of anticoagulants; Z79.899 Other long term (current) drug therapy; Z79.82 Long term (current) use of aspirin
CPT/HCPCS: 36415; 36600; 71045; 74018; 74176; 80053; 81001; 82570; 82803; 82810; 82948; 83036; 83540; 83550; 83605; 83735; 84100; 84134; 84145; 84156; 84300; 84439; 84443; 84478; 84484; 84540; 84560; 85018; 85025; 85027; 85610; 85730; 86022; 86885; 86900; 86901; 86920; 87040; 87070; 87075; 87088; 88305; 88307; 93005; 93306; 93925; 93971; 94002; 94003; 94760; 96361; 96365; 97161; 97530; 99285; A4315; A4414; A4421; A4649; A6209; A6212; A6213; A6222; A6223; A6251; A6253; A6255; A6257; A6258; A6446; A6449; A7000; C1757; C1768; C1781; C9113; J0282; J0360; J0690; J0883; J1170; J1580; J1644; J1815; J2060; J2250; J2270; J2370; J2405; J2543; J2704; J2916; J3010; J3430; J3475; J3490; J7030; J7120; P9016; P9047; P9059; Q9963

== ENCOUNTER 2017-08-28 07:07 | Day surgery (SDC) | payer OTHER ==
[~2017-08-28] VITALS: Ht 152.4 cm; Wt 50.0 kg
[2017-08-28] VITALS (10 sets, daily range): BP systolic 145–160; BP diastolic 69–85
[~2017-08-28 07:07] MED LIST changes: -CARV3.12 PO; +COU1T PO; +HYDR-3972 PO; +HYDR-565 PO; -HYDR12.5 PO; +HYDR25TA4 PO; -MELO-100 PO; +METH750T3 PO; +PANT40TA4 PO; -PRAV80TA3 PO; -TIZA4CAP PO; -WARF2TAB7 PO; +WARF3TAB7 PO
[2017-08-28] MEDS ORDERED: AMIO200T57 PO (07:41)
[2017-08-28] MEDS ORDERED: APIX2.5T PO (07:42)
[2017-08-28] MEDS ORDERED: DRON2.5C PO (07:43)
[2017-08-28] MEDS ORDERED: ESOM20CA PO (07:44)
[2017-08-28] MEDS ORDERED: MAGONATE GT (07:46)
[2017-08-28] MEDS ORDERED: [UNRECOGNIZED DRUG - CODE] GT (07:48)
[2017-08-28] MEDS ORDERED: OXYC20TA55 PO (07:49)
[2017-08-28] MEDS ORDERED: ZOL50T PO (07:50)
[2017-08-28] MEDS ORDERED: ACET-2119 PO (07:52)
[2017-08-28] MEDS ORDERED: DOCUSATE RC (07:54)
[2017-08-28] MEDS ORDERED: HYDR-569 PO (08:04)
[2017-08-28] MEDS ORDERED: ONDA4TAB6 PO (08:05)
[2017-08-28] MEDS ORDERED: ceFAZolin 1,000 MG in NS 100ML IVPB IV ONE (08:20)
[2017-08-28] MEDS ORDERED: POLY17PO10 PO (08:22)
[2017-08-28] MEDS ORDERED: ALBU2.5V12 NEB (08:23)
== END 2017-08-28 09:50 ==
LOC: GI LAB 07:07
PROVIDERS: ATTEND Internal Medicine Gastroenterology
PROC: 0DH63UZ Insertion of Feeding Device into Stomach, Percutaneous Approach (ICD-10-PCS; principal; 2017-08-28)
DX: R13.10 Dysphagia, unspecified (principal); R62.7 Adult failure to thrive
CPT/HCPCS: 43246; A4620; G0500; J0690; J2250; J3010; J7030

== ENCOUNTER 2018-06-27 06:27 | Inpatient (IN) | payer MEDICARE, MEDICAID ==
[~2018-06-27] VITALS: Ht 152.4 cm; Wt 53.5 kg
[~2018-06-27 06:27] MED LIST changes: +ACET-2119 PO; +ALBU2.5V12 NEB; +AMIO200T40 PO; +APIX2.5T PO; -ASPI-611 PO; -COU1T PO; +DOCUSATE RC; +DRON2.5C PO; +ESOM20CA PO; -HYDR-3972 PO; +HYDR-4383 PO; -HYDR-565 PO; -HYDR25TA4 PO; +MAGONATE GT; -METH750T3 PO; +ONDA4TAB6 PO; +OXYC20TA55 PO; +POLY17PO10 PO; -WARF3TAB7 PO; +ZOL50T PO; +[UNRECOGNIZED DRUG - CODE] GT
[2018-06-27] MEDS ORDERED: ondansetron/PF 4mg/2ml inj IV ONE (06:40)
[2018-06-27 07:21] LABS: BASOPHILS % (AUTO) 0.3 % (0-1); EOSINOPHILS % (AUTO) 0.4 % (0-6); HEMATOCRIT 49.7 % (35.0-45.0); HEMOGLOBIN 15.8 g/dl (12.0-16.0); LYMPHOCYTES # (AUTO) 0.8 X10'3 (1.1-4.8); LYMPHOCYTES % (AUTO) 6.1 % (21-51); MEAN CORPUSCULAR HEMOGLOBIN 29.5 PG (27.0-31.0); MEAN CORPUSCULAR HGB CONC 31.8 % (33.0-36.5); MEAN CORPUSCULAR VOLUME 92.8 FL (78-98); MEAN PLATELET VOLUME 11.5 FL (7.4-10.4); MONOCYTES # (AUTO) 0.6 X10'3 (0-0.9); MONOCYTES % (AUTO) 4.7 % (2-12); NEUTROPHILS # (AUTO) 11.4 X10'3 (1.8-7.7); NEUTROPHILS % (AUTO) 88.5 % (42-75); PLATELET COUNT 235 X10'3 (140-440); RED BLOOD COUNT 5.36 X10'6 (4.20-5.60); RED CELL DISTRIBUTION WIDTH 15.9 % (11.5-14.5); WHITE BLOOD COUNT 12.9 X10'3 (4.5-11.0)
[2018-06-27 07:32] LABS: PROTHROMBIN TIME 10.4 SECONDS (9.0-12.0)
[2018-06-27 07:35] LABS: ALANINE AMINOTRANSFERASE 14 U/L (12-78); ALBUMIN 3.6 G/DL (3.4-5.0); ALBUMIN/GLOBULIN RATIO 0.8 (1.1-1.5); ALKALINE PHOSPHATASE 97 IU/L (46-116); ANION GAP 10 (8-16); ASPARTATE AMINO TRANSFERASE 18 U/L (10-37); BILIRUBIN,TOTAL 0.4 MG/DL (0.1-1.0); BLOOD UREA NITROGEN 19 MG/DL (7-18); BUN/CREATININE RATIO 18.8 (6.6-38.0); CALCIUM 9.5 MG/DL (8.5-10.1); CHLORIDE 103 MMOL/L (99-107); CREATININE 1.01 MG/DL (0.40-0.90); GLUCOSE 129 MG/DL (70-104); LARGE PLATELETS FEW; PLATELET ESTIMATE NORMAL; POTASSIUM 3.1 MMOL/L (3.5-5.1); SODIUM 144 MMOL/L (135-145); TOTAL CARBON DIOXIDE 31.5 MMOL/L (24-32); TOTAL PROTEIN 8.4 G/DL (6.4-8.2); eGFR 54 ML/MIN
[2018-06-27 07:36] LABS: ANISOCYTOSIS 1+
[2018-06-27 07:44] LABS: MAGNESIUM 2.1 MG/DL (1.5-2.4)
[2018-06-27] MEDS ORDERED: acetaminophen 325mg tablet PO ONE (08:05)
[2018-06-27] MEDS ORDERED: ketorolac trometh. 30mg/ml inj. IV ONE (08:05)
[2018-06-27] MEDS ORDERED: morphine 4 MG/ML inj SYRINge IV ONE (08:05)
[2018-06-27 08:44] LABS: COLOR,URINE YELLOW (Yellow); GLUCOSE, URINE NEGATIVE (Neg); KETONES,URINE NEGATIVE (Neg); LEUKOCYTE ESTERASE ,URINE SMALL (Neg); NITRITES, URINE NEGATIVE (Neg); OCCULT BLOOD,URINE SMALL (Neg); PROTEIN,URINE >=300 mg/dl (Neg); UROBILINOGEN,URINE 0.2 E.U/dL (0.2-1.0)
[2018-06-27 08:48] LABS: CLARITY,URINE CLOUDY (Clear); UA COLLECTION TYPE OTHER
[2018-06-27 09:06] LABS: BACTERIA,URINE 3+ /HPF (Neg); WBC,URINE TNTC /HPF (0-4)
[2018-06-27 09:07] LABS: RBC,URINE 0-2 /HPF (0-2); SQUAMOUS EPITHELIAL CELL,UR FEW /LPF (FEW)
[2018-06-27] MEDS ORDERED: mag hydrox/Alum hydrox/simeth 30ml oral suspension PO ONE (09:20)
[2018-06-27] MEDS ORDERED: CefTRIAXone 2gm/D5W 50ml 50 ML IV ONE (10:15)
[2018-06-27] MEDS ORDERED: aspirin 325mg tablet PO ONE (10:20)
[2018-06-27] MEDS ORDERED: LIDOcaine 5% patch TP ONE (10:40)
--- NOTE | 2018-06-27 10:40 | NUR ---
Spoke with Dr. sorensen regarding need for blood cultures prior to abx administration, he stated that they were not necessary. Dr. sorensen also asked if staff could help ambulate patient. Patient also informed me that she has been unable to walk for years food drop, she has AMA'd from a [facility] in [place] at which her son was so busy with work to help her move back to [place]. Patient states that, "i wanted to move up here with my ." Patient states that her is unable to take care of her and she was unaware of the fact that he could not walk well himself when she returned to [place] 2 days ago. Patient left AMA without any medications. Dr. sorensen aware, case management paged.
[2018-06-27] MEDS ORDERED: LORazepam 2 mg/ml vial IV ONE (11:45)
--- NOTE | 2018-06-27 11:45 | NUR ---
Spoke with Dr. Torrez regarding pts BP and pain. Received VO to give pt Ativan 0.5mg IV x1 now.
[2018-06-27] MEDS ORDERED: normal saline 1000ml 1,000 ML IV ONE (11:50)
[2018-06-27] MEDS ORDERED: heparin 25,000 UNIT/250ml bag 250 ML IV SCH (11:53)
[2018-06-27] MEDS ORDERED: heparin 10,000 units/1 ML INJ IV ONE (11:55)
[2018-06-27] MEDS ORDERED: heparin 10,000 units/1 ML INJ IV PRN (11:55)
[2018-06-27] MEDS ORDERED: morphine 2 MG/ML inj. syringe IV PRN ×2 (12:00)
[2018-06-27] MEDS ORDERED: acetaminophen 325mg tablet PO PRN ×2 (12:00)
[2018-06-27] MEDS ORDERED: magnesium hydroxide 30ml (MOM) UD suspension PO PRN (12:00)
[2018-06-27] MEDS ORDERED: HYDROcodone/acetaminophen 5mg/325mg tablet PO PRN (12:00)
[2018-06-27] MEDS ORDERED: ondansetron/PF 4mg/2ml inj IV PRN (12:00)
[2018-06-27] MEDS ORDERED: mag hydrox/Alum hydrox/simeth 30ml oral suspension PO PRN (12:00)
--- NOTE | 2018-06-27 13:42 | NUR ---
Called Dr. Leung and clarified heprin order. gave verbal that not to receive heparin gtt or heparin bolus and pt to start lovenox today.
[2018-06-27] MEDS ORDERED: nitroGLYCERIN 0.4mg/hour patch TD ONE (14:10)
--- NOTE | 2018-06-27 15:04 | NUR ---
Pts son Francisco Javier Desai called and left his number: Pt gave verbal consent to share medical information on pts visit. Son states pt has been trying to get a bed at [facility] and is currently at home with spouse whom is unalbe to care for her let alone his self. Family conserned when pt to be discharged and is wanting placement for pt.
[2018-06-27] MEDS: enoxaparin 40mg/0.4ml syringe SUBCUT SCH (17:06)
[2018-06-27] MEDS ORDERED: METO25TA6 PO (19:06)
[2018-06-27] MEDS ORDERED: MORP10CA11 PO (19:06)
[2018-06-27] MEDS ORDERED: PENT400T12 PO (19:06)
[2018-06-27] MEDS ORDERED: HYDR-4069 PO (19:06)
[2018-06-27] MEDS ORDERED: FURO20TA4 PO (19:06)
[2018-06-27] MEDS ORDERED: SIME80TA61 PO (19:06)
[2018-06-27] MEDS ORDERED: CALC-1197 PO (19:06)
[2018-06-27] MEDS ORDERED: DULR RC (19:06)
[2018-06-27] MEDS ORDERED: CELE-193 PO (19:06)
[2018-06-27] MEDS ORDERED: DEXT1DRO6 OP (19:06)
[2018-06-27] MEDS ORDERED: TEMA30CA5 PO (19:06)
[2018-06-27] MEDS ORDERED: NA P133E4 RC (19:06)
[2018-06-27] MEDS ORDERED: FLUT25PO12 NAS (19:06)
[2018-06-27] MEDS ORDERED: TRAM50TA2 PO (19:06)
[2018-06-27] MEDS ORDERED: LORA1TAB PO (19:06)
[2018-06-27] MEDS ORDERED: MULT-1085 PO (19:06)
[2018-06-27] MEDS ORDERED: CILO100T PO (19:06)
[2018-06-27] MEDS ORDERED: IBUP200C5 PO (19:06)
[2018-06-27] MEDS ORDERED: MAGN800O PO (19:06)
[2018-06-27] MEDS ORDERED: ASCO500C15 PO (19:06)
[2018-06-27] MEDS ORDERED: CLOP75TA16 PO (19:06)
--- NOTE | 2018-06-27 20:45 | NUR ---
Report received from SENIOR FIRE PROTECTION ENGINEERMARIA Cline. Patient to follow shortly.
[2018-06-27 21:10] VITALS: BP 150/102
[2018-06-27] MEDS: HYDROcodone/acetaminophen 10/325mg tab PO PRN (21:54)
[2018-06-27] MEDS: metoprolol tartrate 50mg tablet PO SCH (21:54)
[2018-06-27] MEDS ORDERED: potassium Cl 40MEQ/NS 500ml 500 ML IV PRN ×2 (22:25)
[2018-06-27] MEDS ORDERED: magnesium 4gm in 100ml NS 100 ML IV PRN (22:25)
[2018-06-27] MEDS ORDERED: magnesium Cl slow-release 64mg tablet PO PRN (22:25)
[2018-06-27] MEDS: potassium Cl 20 mEq SR tablet PO PRN (22:56)
[2018-06-28] VITALS: BP 142/99
[2018-06-28] MEDS: potassium Cl 20 mEq SR tablet PO PRN (04:01)
[2018-06-28] MEDS: HYDROcodone/acetaminophen 10/325mg tab PO PRN ×3 (04:07→20:21)
--- NOTE | 2018-06-28 05:30 | NUR ---
Helped patient off of bed holguin. UOf 100cc. Patient denies having any pain to back at this time. Addendum: 06/28/18 at 0716 by Taty Crowley RN Amended: Links added.
--- NOTE | 2018-06-28 05:47 | NUR ---
Around (PM last night patient arrived to floor from ER via gurney. A&Ox4, in no pain/distress at this time. Patient settled into room and MRSA swab collected, pt. Neyda and 2 RN skin check completed.
[2018-06-28 05:49] LABS: BASOPHILS # (AUTO) 0.1 X10'3 (0-0.2); EOSINOPHILS # (AUTO) 0.3 X10'3 (0-0.9); EOSINOPHILS % (AUTO) 2.8 % (0-6); HEMATOCRIT 42.3 % (35.0-45.0); HEMOGLOBIN 13.6 g/dl (12.0-16.0); LYMPHOCYTES # (AUTO) 1.5 X10'3 (1.1-4.8); LYMPHOCYTES % (AUTO) 15.1 % (21-51); MEAN CORPUSCULAR HEMOGLOBIN 29.8 PG (27.0-31.0); MEAN CORPUSCULAR HGB CONC 32.2 % (33.0-36.5); MEAN CORPUSCULAR VOLUME 92.3 FL (78-98); MEAN PLATELET VOLUME 11.6 FL (7.4-10.4); MONOCYTES # (AUTO) 0.9 X10'3 (0-0.9); MONOCYTES % (AUTO) 9.5 % (2-12); NEUTROPHILS # (AUTO) 7.1 X10'3 (1.8-7.7); NEUTROPHILS % (AUTO) 71.6 % (42-75); PLATELET COUNT 210 X10'3 (140-440); RED BLOOD COUNT 4.58 X10'6 (4.20-5.60); RED CELL DISTRIBUTION WIDTH 15.9 % (11.5-14.5); WHITE BLOOD COUNT 9.9 X10'3 (4.5-11.0)
[2018-06-28 05:58] LABS: ALBUMIN 2.9 G/DL (3.4-5.0); ANION GAP 8 (8-16); BLOOD UREA NITROGEN 17 MG/DL (7-18); BUN/CREATININE RATIO 17.2 (6.6-38.0); CALCIUM 8.3 MG/DL (8.5-10.1); CHLORIDE 104 MMOL/L (99-107); CREATININE 0.99 MG/DL (0.40-0.90); GLUCOSE 101 MG/DL (70-104); MAGNESIUM 2.1 MG/DL (1.5-2.4); POTASSIUM 4.4 MMOL/L (3.5-5.1); SODIUM 138 MMOL/L (135-145); TOTAL CARBON DIOXIDE 26.4 MMOL/L (24-32); eGFR 55 ML/MIN
--- NOTE | 2018-06-28 06:45 | NUR ---
Problems reprioritized. Patient report given, questions answered & plan of care reviewed with Joya Waldron.
[2018-06-28 07:45] VITALS: BP 150/91
[2018-06-28] MEDS: metoprolol tartrate 50mg tablet PO SCH ×2 (07:57→20:19)
[2018-06-28] MEDS: aspirin 81mg tablet.DR PO SCH (07:57)
[2018-06-28] MEDS: nitroGLYCERIN 0.4mg/hour patch TD SCH (07:58)
[2018-06-28] MEDS: lisinopril 10 MG tablet PO SCH (07:58)
[2018-06-28] MEDS ORDERED: enoxaparin 40mg/0.4ml syringe SUBCUT SCH (08:00)
[2018-06-28] MEDS: CefTRIAXone/D5W-Rocephin 1gm 50 ML IV SCH (09:13)
[2018-06-28 11:01] VITALS: BP 125/80
[2018-06-28] MEDS: LIDOcaine 5% patch TP SCH (11:45)
[2018-06-28 12:17] LABS: TROPONIN I 0.09 NG/ML (0.0-0.05)
[2018-06-28] MEDS: enoxaparin 40mg/0.4ml syringe SUBCUT SCH (14:07)
[2018-06-28] MEDS ORDERED: regadenoson 0.4mg/5ml syringe IV ONE (15:10)
[2018-06-28] MEDS ORDERED: nitroGLYCERIN 0.4mg SUBLingual tab SL PRN (15:10)
[2018-06-28] MEDS ORDERED: aminophylline 250mg/10ml inj. IV PRN (15:10)
[2018-06-28] MEDS ORDERED: metoprolol tartrate 1mg/ml inj IV PRN (15:10)
--- NOTE | 2018-06-28 16:28 | NUR ---
Student Medication Administration: For this medication-pass time frame, all medication were reviewed, dispensed, administered and documented per hospital policy by Shanti KILLIAN.
[2018-06-28 18:00] VITALS: BP 143/92
--- NOTE | 2018-06-28 18:41 | NUR ---
Patient in room ANJU 357. I have received report from Keesha SIFUENTES and had the opportunity to ask questions and assume patient care. Pt sitting up in bed eating dinner, no signs of distress. Will continue to monitor.
--- NOTE | 2018-06-28 18:56 | NUR ---
Problems reprioritized. Patient report given, questions answered & plan of care reviewed with MARIA Madrid.
[2018-06-28] MEDS: ipratropium/albuterol 3ml nebule NEB SCH ×2 (19:41→23:23)
[2018-06-28] MEDS: apixaban 5mg tablet PO SCH (20:20)
[2018-06-28] MEDS: furosemide 20 MG/2 ML vial IV SCH (20:21)
[2018-06-29] VITALS (16 sets, daily range): BP systolic 93–150; BP diastolic 59–95
[2018-06-29] MEDS: HYDROcodone/acetaminophen 10/325mg tab PO PRN ×4 (00:40→20:01)
[2018-06-29] MEDS: ipratropium/albuterol 3ml nebule NEB SCH ×6 (03:00→23:35)
[2018-06-29 06:12] LABS: ALBUMIN 2.9 G/DL (3.4-5.0); ANION GAP 6 (8-16); BLOOD UREA NITROGEN 16 MG/DL (7-18); BUN/CREATININE RATIO 16.2 (6.6-38.0); CALCIUM 8.7 MG/DL (8.5-10.1); CHLORIDE 105 MMOL/L (99-107); CREATININE 0.99 MG/DL (0.40-0.90); GLUCOSE 93 MG/DL (70-104); MAGNESIUM 2.1 MG/DL (1.5-2.4); POTASSIUM 3.7 MMOL/L (3.5-5.1); SODIUM 139 MMOL/L (135-145); TOTAL CARBON DIOXIDE 28.5 MMOL/L (24-32); eGFR 55 ML/MIN
--- NOTE | 2018-06-29 06:15 | NUR ---
Problems reprioritized. Patient report given, EDWARD SIFUENTES questions answered & plan of care reviewed with . PATIENT SITTING UP IN BED ON THE PHONE JUST FINISHING DINNER
--- NOTE | 2018-06-29 06:15 | NUR ---
Patient in room ANJU 357. I have received report from Mercy SIFUENTES and had the opportunity to ask questions and assume patient care. Patient in bed sleeping
--- NOTE | 2018-06-29 06:36 | NUR ---
Problems reprioritized. Patient report given, questions answered & plan of care reviewed with Kymberly SIFUENTES. Pt sleeping soundly with no signs of distress.
[2018-06-29] MEDS: aspirin 81mg tablet.DR PO SCH (08:04)
[2018-06-29] MEDS: apixaban 5mg tablet PO SCH ×2 (08:04→20:01)
[2018-06-29] MEDS: LIDOcaine 5% patch TP SCH (08:05)
[2018-06-29] MEDS: furosemide 20 MG/2 ML vial IV SCH (08:05)
[2018-06-29] MEDS: CefTRIAXone/D5W-Rocephin 1gm 50 ML IV SCH (08:05)
[2018-06-29] MEDS ORDERED: regadenoson 0.4mg/5ml syringe IV ONE (09:09)
[2018-06-29] MEDS ORDERED: aminophylline inj. 10 ML IV ONE (09:09)
[2018-06-29] MEDS: metoprolol tartrate 50mg tablet PO SCH ×2 (12:07→20:01)
[2018-06-29] MEDS: lisinopril 10 MG tablet PO SCH (12:07)
[2018-06-29] MEDS: nitroGLYCERIN 0.4mg/hour patch TD SCH (12:08)
--- NOTE | 2018-06-29 18:46 | NUR ---
Patient in room ANJU 357. I have received report from Kymberly SIFUENTES and had the opportunity to ask questions and assume patient care. Pt sitting up in bed talking on the phone. Checked abdomen and colostomy. Will continue to monitor.
[2018-06-30 00:17] VITALS: BP 120/77
[2018-06-30] MEDS: ipratropium/albuterol 3ml nebule NEB SCH ×6 (03:00→22:57)
[2018-06-30 05:34] LABS: ALBUMIN 3.2 G/DL (3.4-5.0); ANION GAP 9 (8-16); BLOOD UREA NITROGEN 17 MG/DL (7-18); BUN/CREATININE RATIO 14.7 (6.6-38.0); CALCIUM 9.1 MG/DL (8.5-10.1); CHLORIDE 102 MMOL/L (99-107); CREATININE 1.16 MG/DL (0.40-0.90); GLUCOSE 95 MG/DL (70-104); MAGNESIUM 2.2 MG/DL (1.5-2.4); POTASSIUM 3.9 MMOL/L (3.5-5.1); SODIUM 140 MMOL/L (135-145); TOTAL CARBON DIOXIDE 29.1 MMOL/L (24-32); eGFR 46 ML/MIN
--- NOTE | 2018-06-30 06:20 | NUR ---
Patient in room ANJU 354. I have received report from Mercy SIFUENTES and had the opportunity to ask questions and assume patient care. Patient in bed sleeping and it was reported she slept through the night
--- NOTE | 2018-06-30 06:35 | NUR ---
Problems reprioritized. Patient report given, questions answered & plan of care reviewed with Kymberly SIFUENTES. Pt sleeping comfortably with no signs of distress.
[2018-06-30 06:56] VITALS: BP 125/80
[2018-06-30] MEDS: CefTRIAXone/D5W-Rocephin 1gm 50 ML IV SCH (08:39)
[2018-06-30] MEDS: aspirin 81mg tablet.DR PO SCH (08:40)
[2018-06-30] MEDS: furosemide 20 MG/2 ML vial IV SCH (08:40)
[2018-06-30] MEDS: nitroGLYCERIN 0.4mg/hour patch TD SCH (08:40)
[2018-06-30] MEDS: apixaban 5mg tablet PO SCH ×2 (08:40→19:54)
[2018-06-30] MEDS: LIDOcaine 5% patch TP SCH (08:41)
[2018-06-30] MEDS: lisinopril 10 MG tablet PO SCH (08:41)
[2018-06-30] MEDS: metoprolol tartrate 50mg tablet PO SCH ×2 (08:41→19:57)
[2018-06-30 11:00] VITALS: BP 137/88
[2018-06-30] MEDS: HYDROcodone/acetaminophen 10/325mg tab PO PRN ×3 (15:09→23:18)
[2018-06-30 18:00] VITALS: BP 118/73
--- NOTE | 2018-06-30 18:20 | NUR ---
Problems reprioritized. Patient report given, Mercy SIFUENTES questions answered & plan of care reviewed with . Patient sitting up in bed watching TV just finished dinner
--- NOTE | 2018-06-30 18:37 | NUR ---
Patient in room ANJU 354. I have received report from Kymberly SIFUENTES and had the opportunity to ask questions and assume patient care. Pt resting comfortably watching tv on 2L O2 via NC with no signs of distress.
[2018-06-30] MEDS: lactobacillus rhamnosus 10,000 MMU CELLS/CAPSULE PO SCH (19:53)
[2018-06-30 19:57] VITALS: BP 120/81
[2018-07-01 00:45] VITALS: BP 138/91
[2018-07-01] MEDS: ipratropium/albuterol 3ml nebule NEB SCH ×6 (03:00→23:00)
[2018-07-01] MEDS: HYDROcodone/acetaminophen 10/325mg tab PO PRN ×5 (03:51→21:55)
--- NOTE | 2018-07-01 06:10 | NUR ---
Patient in room ANJU 354. I have received report from EDWARD SIFUENTES and had the opportunity to ask questions and assume patient care. PATIENT IN BED SLEEPING
[2018-07-01 06:31] LABS: ALBUMIN 3.1 G/DL (3.4-5.0); ANION GAP 8 (8-16); BLOOD UREA NITROGEN 20 MG/DL (7-18); CALCIUM 8.8 MG/DL (8.5-10.1); CHLORIDE 102 MMOL/L (99-107); GLUCOSE 96 MG/DL (70-104); MAGNESIUM 2.2 MG/DL (1.5-2.4); POTASSIUM 3.8 MMOL/L (3.5-5.1); SODIUM 138 MMOL/L (135-145); TOTAL CARBON DIOXIDE 28.3 MMOL/L (24-32); eGFR 54 ML/MIN
--- NOTE | 2018-07-01 06:40 | NUR ---
Problems reprioritized. Patient report given, questions answered & plan of care reviewed with Kymberly SIFUENTES. Pt lying awake in bed with no signs of distress.
[2018-07-01 08:09] VITALS: BP 121/73
[2018-07-01] MEDS: furosemide 20 MG/2 ML vial IV SCH (08:50)
[2018-07-01] MEDS: lactobacillus rhamnosus 10,000 MMU CELLS/CAPSULE PO SCH ×2 (08:51→21:33)
[2018-07-01] MEDS: aspirin 81mg tablet.DR PO SCH (08:51)
[2018-07-01] MEDS: metoprolol tartrate 50mg tablet PO SCH ×2 (08:51→21:33)
[2018-07-01] MEDS: apixaban 5mg tablet PO SCH ×2 (08:51→21:33)
[2018-07-01] MEDS: CefTRIAXone/D5W-Rocephin 1gm 50 ML IV SCH (08:52)
[2018-07-01] MEDS: lisinopril 10 MG tablet PO SCH (08:52)
[2018-07-01] MEDS: nitroGLYCERIN 0.4mg/hour patch TD SCH (08:53)
[2018-07-01] MEDS: LIDOcaine 5% patch TP SCH (08:53)
[2018-07-01 11:27] VITALS: BP 126/63
--- NOTE | 2018-07-01 18:15 | NUR ---
Problems reprioritized. Patient report given, Cheli SIFUENTES questions answered & plan of care reviewed with . Patient in bed awake just finished up dinner
--- NOTE | 2018-07-01 18:30 | NUR ---
Patient in room ANJU 354. I have received report from Kymberly SIFUENTES and had the opportunity to ask questions and assume patient care. Patient finishing dinner, just received pain medication. Will assess effectiveness and continue to monitor.
[2018-07-01 20:00] VITALS: BP 104/68
[2018-07-02] VITALS: BP 121/72
[2018-07-02] MEDS: HYDROcodone/acetaminophen 10/325mg tab PO PRN ×5 (02:18→20:57)
[2018-07-02] MEDS: ipratropium/albuterol 3ml nebule NEB SCH ×6 (03:00→23:00)
[2018-07-02 05:47] LABS: ALBUMIN 3.2 G/DL (3.4-5.0); ANION GAP 9 (8-16); BLOOD UREA NITROGEN 19 MG/DL (7-18); BUN/CREATININE RATIO 18.1 (6.6-38.0); CALCIUM 8.9 MG/DL (8.5-10.1); CHLORIDE 98 MMOL/L (99-107); CREATININE 1.05 MG/DL (0.40-0.90); GLUCOSE 93 MG/DL (70-104); MAGNESIUM 2.1 MG/DL (1.5-2.4); POTASSIUM 4.1 MMOL/L (3.5-5.1); SODIUM 135 MMOL/L (135-145); TOTAL CARBON DIOXIDE 27.7 MMOL/L (24-32); eGFR 51 ML/MIN
--- NOTE | 2018-07-02 06:30 | NUR ---
Problems reprioritized. Patient report given, questions answered & plan of care reviewed with Rosalinda SIFUENTES.
--- NOTE | 2018-07-02 06:32 | NUR ---
Patient in room ANJU 354. I have received report from MARIA Bower and had the opportunity to ask questions and assume patient care.
--- NOTE | 2018-07-02 06:32 | NUR ---
Patient in room ANJU 354. I have received report from Rosalinda and had the opportunity to ask questions and assume patient care.
[2018-07-02 07:31] VITALS: BP 106/70
[2018-07-02] MEDS: furosemide 20 MG/2 ML vial IV SCH (08:00)
[2018-07-02] MEDS: CefTRIAXone/D5W-Rocephin 1gm 50 ML IV SCH (08:00)
[2018-07-02] MEDS: metoprolol tartrate 50mg tablet PO SCH ×2 (08:00→20:00)
[2018-07-02] MEDS: lactobacillus rhamnosus 10,000 MMU CELLS/CAPSULE PO SCH ×2 (08:16→20:33)
[2018-07-02] MEDS: aspirin 81mg tablet.DR PO SCH (08:17)
[2018-07-02] MEDS: apixaban 5mg tablet PO SCH ×2 (08:17→20:33)
[2018-07-02] MEDS: lisinopril 10 MG tablet PO SCH (08:17)
[2018-07-02] MEDS: nitroGLYCERIN 0.4mg/hour patch TD SCH (08:18)
[2018-07-02] MEDS: LIDOcaine 5% patch TP SCH (08:19)
--- NOTE | 2018-07-02 10:49 | NUR ---
Student documentation: I have reviewed and agree with all interventions, assessments performed and documented by Eloisa, practice or student teacher.
--- NOTE | 2018-07-02 10:50 | NUR ---
Student Medication Administration: For this medication-pass time frame, all medication were reviewed, dispensed, administered and documented per hospital policy by Eloisa nursing specialist.
[2018-07-02 11:02] VITALS: BP 101/66
--- NOTE | 2018-07-02 11:56 | NUR ---
Problems reprioritized. Patient report given, questions answered & plan of care reviewed with Rosalinda.
--- NOTE | 2018-07-02 12:09 | NUR ---
Patient in room ANJU 354. I have received report from Eloisa Arizmendi, student nurse and had the opportunity to ask questions and assume patient care.
[2018-07-02 13:54] VITALS: BP 114/56
--- NOTE | 2018-07-02 15:26 | NUR ---
Initial: Pt admit w/ acute heart failure, hx severe pulmonary HTN and smoking per MD. Anderson. PO 100% heart healthy meals meeting needs. Pt hx colostomy 25ml documented output. Will continue to monitor for ONS needs. Rec: 1. continue heart healthy diet 2. monitor for ONS needs 3. wt per rx Addendum: 07/02/18 at [address] Amended: Links added.
--- NOTE | 2018-07-02 15:31 | NUR ---
Problems reprioritized. Patient report given, questions answered & plan of care reviewed with Rosalinda Kelly
--- NOTE | 2018-07-02 18:20 | NUR ---
Patient in room ANJU 354. I have received report from Rosalinda SIFUENTES and had the opportunity to ask questions and assume patient care. Patient finished dinner, will continue to monitor.
--- NOTE | 2018-07-02 18:28 | NUR ---
Problems reprioritized. Patient report given, questions answered & plan of care reviewed with MARIA COOPER.
[2018-07-02 20:00] VITALS: BP 115/61
[2018-07-02 20:20] VITALS: BP 108/60
[2018-07-03] VITALS: BP 111/80
[2018-07-03] MEDS: ipratropium/albuterol 3ml nebule NEB SCH ×5 (02:47→19:54)
[2018-07-03] MEDS: HYDROcodone/acetaminophen 10/325mg tab PO PRN ×4 (05:44→23:33)
--- NOTE | 2018-07-03 06:20 | NUR ---
Patient in room ANJU 354. I have received report from tutor coordinator nurse and had the opportunity to ask questions and assume patient care.
--- NOTE | 2018-07-03 06:24 | NUR ---
Problems reprioritized. Patient report given, questions answered & plan of care reviewed with Rosalinda RN. Patient resting eyes closed respirations even.
[2018-07-03] MEDS ORDERED: furosemide 40mg tablet PO SCH (08:00)
[2018-07-03 08:09] VITALS: BP 122/84
[2018-07-03] MEDS: lactobacillus rhamnosus 10,000 MMU CELLS/CAPSULE PO SCH ×2 (08:18→19:22)
[2018-07-03] MEDS: apixaban 5mg tablet PO SCH ×2 (08:18→19:22)
[2018-07-03] MEDS: lisinopril 10 MG tablet PO SCH (08:19)
[2018-07-03] MEDS: aspirin 81mg tablet.DR PO SCH (08:19)
[2018-07-03] MEDS: nitroGLYCERIN 0.4mg/hour patch TD SCH (08:20)
[2018-07-03] MEDS: metoprolol tartrate 50mg tablet PO SCH ×2 (08:20→19:22)
[2018-07-03] MEDS: LIDOcaine 5% patch TP SCH (08:21)
[2018-07-03] MEDS: cefpodoxime proxetil 100mg tablet PO SCH ×2 (09:26→16:59)
--- NOTE | 2018-07-03 11:45 | NUR ---
used dopplar to find pulses on patient's feet. right pedal and posterior tibial pulses absent, however we heard a weak pulse on left posterior tibial area. feet were cold, patient has neuropathy and previous history of fasciotomy on lower right leg.
--- NOTE | 2018-07-03 11:56 | NUR ---
1158 daily weight: patient was using 5 pillows and 3 blankets.
--- NOTE | 2018-07-03 12:00 | NUR ---
Patient in room ANJU 354. I have received report from Kaylee and had the opportunity to ask questions and assume patient care.
--- NOTE | 2018-07-03 12:05 | NUR ---
Student documentation: I have reviewed and agree with all interventions, assessments performed and documented by Kaylee, acute care nursing assistant.
--- NOTE | 2018-07-03 12:05 | NUR ---
Student Medication Administration: For this medication-pass time frame, all medication were reviewed, dispensed, administered and documented per hospital policy by autumn Page.
--- NOTE | 2018-07-03 12:15 | NUR ---
Problems reprioritized. Patient report given, questions answered & plan of care reviewed with MARIA Wolf student.
[2018-07-03 13:30] VITALS: BP 117/74
--- NOTE | 2018-07-03 16:35 | NUR ---
Student documentation: I have reviewed and agree with all interventions, assessments performed and documented by Maryann student nurse.
--- NOTE | 2018-07-03 17:17 | NUR ---
Problems reprioritized. Patient report given, questions answered & plan of care reviewed with Rosalinda.
--- NOTE | 2018-07-03 18:00 | NUR ---
Problems reprioritized. Patient report given, questions answered & plan of care reviewed with MARIA EVANS.
[2018-07-03 20:00] VITALS: BP 112/63
[2018-07-03] MEDS ORDERED: ipratropium/albuterol 3ml nebule NEB PRN (22:45)
[2018-07-04] VITALS: BP 118/79
[2018-07-04] MEDS: HYDROcodone/acetaminophen 10/325mg tab PO PRN ×5 (03:42→23:34)
[2018-07-04 07:00] VITALS: BP 105/75
[2018-07-04] MEDS: ipratropium/albuterol 3ml nebule NEB SCH ×4 (07:15→20:16)
[2018-07-04] MEDS: lisinopril 10 MG tablet PO SCH (08:00)
[2018-07-04] MEDS: lactobacillus rhamnosus 10,000 MMU CELLS/CAPSULE PO SCH ×2 (08:27→22:09)
[2018-07-04] MEDS: aspirin 81mg tablet.DR PO SCH (08:27)
[2018-07-04] MEDS: apixaban 5mg tablet PO SCH ×2 (08:27→22:09)
[2018-07-04] MEDS: LIDOcaine 5% patch TP SCH (08:28)
[2018-07-04] MEDS: cefpodoxime proxetil 100mg tablet PO SCH ×2 (10:48→16:52)
[2018-07-04] MEDS: furosemide 20MG tablet PO SCH ×2 (10:48→22:09)
[2018-07-04 11:00] VITALS: BP 99/70
[2018-07-04] MEDS: metoprolol tartrate 25mg tablet PO SCH ×2 (12:00→20:00)
--- NOTE | 2018-07-04 17:35 | NUR ---
Taught patient how to empty colostomy bag. Patient returned demonstration. Helena
--- NOTE | 2018-07-04 18:48 | NUR ---
Problems reprioritized. Patient report given, questions answered & plan of care reviewed with Katie SIFUENTES.
[2018-07-04 20:00] VITALS: BP 96/66
--- NOTE | 2018-07-04 22:10 | NUR ---
PATIENT REFUSED LASIX TONIGHT, STATES SHE IS NOT STAYING UP ALL NIGHT USING THE BEDPAN. SHE SAID SHE WILL TAKE HER MORNING LASIX DOSE. LASIX HELD NOT GIVEN.
[2018-07-05] VITALS: BP 102/63
[2018-07-05] MEDS: HYDROcodone/acetaminophen 10/325mg tab PO PRN ×4 (04:55→19:34)
--- NOTE | 2018-07-05 06:50 | NUR ---
Patient in room ANJU 354. I have received report from MARIA Wilson and had the opportunity to ask questions and assume patient care.
[2018-07-05] MEDS: ipratropium/albuterol 3ml nebule NEB SCH ×4 (06:59→20:04)
[2018-07-05 07:31] VITALS: BP 131/78
[2018-07-05] MEDS: metoprolol tartrate 25mg tablet PO SCH ×2 (08:00→19:33)
[2018-07-05] MEDS: aspirin 81mg tablet.DR PO SCH (08:37)
[2018-07-05] MEDS: lactobacillus rhamnosus 10,000 MMU CELLS/CAPSULE PO SCH ×2 (08:37→19:33)
[2018-07-05] MEDS: apixaban 5mg tablet PO SCH ×2 (08:37→19:34)
[2018-07-05] MEDS: furosemide 20MG tablet PO SCH ×2 (08:38→20:00)
[2018-07-05] MEDS: LIDOcaine 5% patch TP SCH (08:39)
[2018-07-05] MEDS: lisinopril 10 MG tablet PO SCH (08:39)
[2018-07-05] MEDS: cefpodoxime proxetil 100mg tablet PO SCH ×2 (08:40→17:59)
--- NOTE | 2018-07-05 11:02 | NUR ---
Reassessment: Documented PO intake fluctuates however averages at 75% on heart healthy diet likely meeting nutrient needs. Colostomy output 1075 mL 07/04. Per MD notes acute on chronic diastolic heart failure improving and community case manager is working on pt placement to LTC. Will continue to follow. Rec: 1. continue heart healthy diet 2. monitor for ONS needs 3. wt per rx Addendum: 07/05/18 at [address] Amended: Links added.
[2018-07-05 11:38] VITALS: BP 109/58
--- NOTE | 2018-07-05 18:10 | NUR ---
Problems reprioritized. Patient report given, questions answered & plan of care reviewed with MARIA Moser.
--- NOTE | 2018-07-05 18:23 | NUR ---
Received report from Linda SIFUENTES pt is awake and alert on 2L of O2 via NC, in no apparent distress, eating dinner, call light and items of freq use within reach.
[2018-07-05 19:30] VITALS: BP 130/79
[2018-07-06 00:10] VITALS: BP 113/81
[2018-07-06] MEDS: HYDROcodone/acetaminophen 10/325mg tab PO PRN ×5 (01:45→18:57)
--- NOTE | 2018-07-06 06:26 | NUR ---
Problems reprioritized. Patient report given, questions answered & plan of care reviewed with Tenzin SIFUENTES.
--- NOTE | 2018-07-06 06:34 | NUR ---
Patient in room ANJU 354. I have received report from Phylicia SIFUENTES and had the opportunity to ask questions and assume patient care
[2018-07-06] MEDS: ipratropium/albuterol 3ml nebule NEB SCH ×4 (06:53→19:30)
[2018-07-06 07:00] VITALS: BP 109/75
[2018-07-06] MEDS: apixaban 5mg tablet PO SCH ×2 (08:44→19:56)
[2018-07-06] MEDS: furosemide 20MG tablet PO SCH ×2 (08:44→20:00)
[2018-07-06] MEDS: metoprolol tartrate 25mg tablet PO SCH ×2 (08:45→20:00)
[2018-07-06] MEDS: lisinopril 10 MG tablet PO SCH (08:45)
[2018-07-06] MEDS: lactobacillus rhamnosus 10,000 MMU CELLS/CAPSULE PO SCH ×2 (08:45→19:56)
[2018-07-06] MEDS: aspirin 81mg tablet.DR PO SCH (08:45)
[2018-07-06] MEDS: LIDOcaine 5% patch TP SCH (08:46)
[2018-07-06 12:00] VITALS: BP 102/65
--- NOTE | 2018-07-06 18:37 | NUR ---
Problems reprioritized. Patient report given, questions answered & plan of care reviewed with Phylicia SIFUENTES.
--- NOTE | 2018-07-06 18:49 | NUR ---
Received report from Tenzin SIFUENTES pt is awake and alert on 2L of O2 via NC, in no apparent distress, call light and items of freq use within reach, pt is requesting pain medication.
[2018-07-06 19:30] VITALS: BP 91/51
[2018-07-07] VITALS: BP 122/69
[2018-07-07] MEDS: HYDROcodone/acetaminophen 10/325mg tab PO PRN ×5 (02:32→20:21)
--- NOTE | 2018-07-07 06:36 | NUR ---
Problems reprioritized. Patient report given, questions answered & plan of care reviewed with Sincere SIFUENTES.
--- NOTE | 2018-07-07 06:47 | NUR ---
Patient in room ANJU 354. I have received report from MARIA HINKLE and had the opportunity to ask questions and assume patient care.
[2018-07-07] MEDS: ipratropium/albuterol 3ml nebule NEB SCH ×4 (06:52→19:34)
[2018-07-07 07:04] VITALS: BP 108/64
[2018-07-07] MEDS: lactobacillus rhamnosus 10,000 MMU CELLS/CAPSULE PO SCH ×2 (07:17→19:28)
[2018-07-07] MEDS: metoprolol tartrate 25mg tablet PO SCH ×2 (07:17→20:00)
[2018-07-07] MEDS: apixaban 5mg tablet PO SCH ×2 (07:18→19:28)
[2018-07-07] MEDS: LIDOcaine 5% patch TP SCH (07:18)
[2018-07-07] MEDS: furosemide 20MG tablet PO SCH ×2 (07:19→20:00)
[2018-07-07] MEDS: aspirin 81mg tablet.DR PO SCH (07:19)
[2018-07-07] MEDS: lisinopril 10 MG tablet PO SCH (07:19)
[2018-07-07 11:41] VITALS: BP 130/101
--- NOTE | 2018-07-07 12:51 | NUR ---
patient's colostomy drainage bag that had been reinforced with tape starting to lift. new colostomy drainage bag placed. patient tolerated well.
[2018-07-07] MEDS ORDERED: HYDROcodone/acetaminophen 10/325mg tab PO ONE (12:55)
--- NOTE | 2018-07-07 12:58 | NUR ---
DR MORALES NOTIFIED OF PATIENT PEDAL PULSES AND POSTERIOR TIBIAL PULSES NOT BEING PALPABLE AND UNABLE TO LOCATE WITH DOPPLER WELL AND COLD BLE. DR MORALES IN TO SEE PATIENT AND ORDERED TO HAVE PATIENT'S RECORDS FROM A STENT PLACEMENT SHE HAD DONE IN DAWN X2 WEEKS AGO BE OBTAINED.
--- NOTE | 2018-07-07 13:14 | NUR ---
Patient states she does not remember the name of the hospital she had stent placement but that she was staying at the [facility] facility in [place] and that they would have that information. Attempted to call [facility] [phone] but no answer. Left message for call back.
--- NOTE | 2018-07-07 15:47 | NUR ---
No call back from [facility]. Called [facility] and spoke to Nicolasa. Nicolasa stated they do not have information on patient and their medical records department was not open and that she will "let them know to call back and help you get the information." Call back number [phone] given to Nicolasa.
--- NOTE | 2018-07-07 16:02 | NUR ---
Called Francisco Javier, patient's POA to get information regarding where patient had procedure. Francisco Javier states procedure was done at "[facility] but [facility] should have all that information." Informed patient [facility] was called but unable to get answers and that I will attempt to call [facility]. Called [facility] in [facility] but medical records department closed on weekends. principal secretary, maurilio Rosa request for stent placement records.
--- NOTE | 2018-07-07 16:47 | NUR ---
patient iv outdated. attempted x2 to start new iv but unable to start. patient refusing another attempt by another rn at this time.
--- NOTE | 2018-07-07 18:30 | NUR ---
Received report from Sincere RN, pt is stating she done with the bedpan, pt put out 125mL, call light and items of freq use within reach
[2018-07-07 19:00] VITALS: BP 91/51
--- NOTE | 2018-07-07 19:30 | NUR ---
pt refused to have a new IV started, IV in LFA is dated 07/01, flushes easily, patent, no reddness.
[2018-07-08 00:10] VITALS: BP 107/45
[2018-07-08] MEDS: HYDROcodone/acetaminophen 10/325mg tab PO PRN ×5 (00:40→20:42)
--- NOTE | 2018-07-08 06:09 | NUR ---
Gave report to William SIFUENTES, pt is resting on 2L of O2 via NC, breaths even and unlabored, call light and items of freq use within reach.
--- NOTE | 2018-07-08 06:20 | NUR ---
Patient in room ANJU 354. I have received report from MARIA HINKLE and had the opportunity to ask questions and assume patient care.
[2018-07-08] MEDS: ipratropium/albuterol 3ml nebule NEB SCH ×4 (07:18→19:37)
[2018-07-08] MEDS: LIDOcaine 5% patch TP SCH (07:26)
[2018-07-08] MEDS: furosemide 20MG tablet PO SCH ×2 (07:26→19:20)
[2018-07-08] MEDS: lactobacillus rhamnosus 10,000 MMU CELLS/CAPSULE PO SCH ×2 (07:26→19:18)
[2018-07-08] MEDS: metoprolol tartrate 25mg tablet PO SCH ×2 (07:26→19:18)
[2018-07-08] MEDS: apixaban 5mg tablet PO SCH (07:26)
[2018-07-08] MEDS: aspirin 81mg tablet.DR PO SCH (07:26)
[2018-07-08] MEDS: lisinopril 10 MG tablet PO SCH (07:27)
[2018-07-08 08:12] VITALS: BP 125/73
--- NOTE | 2018-07-08 09:09 | NUR ---
Spoke to Dr. Campos regarding patient c/o increase pain to right lower leg, no pulses by palpating or doppler, cold extremity. Also, unable to get reports from stent placement from [facility] in [place] as their medical records department is closed on weekends, but request for information faxed with patient's consent. Dr. Campos ordered for arterial doppler and morphine 3mg iv q4hr prn breakthrough pain.
[2018-07-08] MEDS: morphine 2 MG/ML inj. syringe IV PRN ×3 (09:18→19:14)
[2018-07-08] MEDS: clopidogrel 75mg tablet PO SCH (09:36)
--- NOTE | 2018-07-08 10:35 | NUR ---
electronics tech at patient's bedside.
[2018-07-08 12:04] VITALS: BP 112/43
[2018-07-08] MEDS ORDERED: heparin 10,000 units/1 ML INJ IV ONE (15:05)
[2018-07-08 15:38] LABS: BASOPHILS % (AUTO) 0.5 % (0-1); EOSINOPHILS # (AUTO) 0.2 X10'3 (0-0.9); EOSINOPHILS % (AUTO) 3.4 % (0-6); HEMATOCRIT 40.6 % (35.0-45.0); HEMOGLOBIN 12.9 g/dl (12.0-16.0); LYMPHOCYTES # (AUTO) 1.2 X10'3 (1.1-4.8); LYMPHOCYTES % (AUTO) 15.8 % (21-51); MEAN CORPUSCULAR HEMOGLOBIN 29.6 PG (27.0-31.0); MEAN CORPUSCULAR HGB CONC 31.9 % (33.0-36.5); MEAN CORPUSCULAR VOLUME 92.9 FL (78-98); MEAN PLATELET VOLUME 10.9 FL (7.4-10.4); MONOCYTES # (AUTO) 0.7 X10'3 (0-0.9); MONOCYTES % (AUTO) 9.3 % (2-12); NEUTROPHILS # (AUTO) 5.2 X10'3 (1.8-7.7); PLATELET COUNT 185 X10'3 (140-440); RED BLOOD COUNT 4.37 X10'6 (4.20-5.60); RED CELL DISTRIBUTION WIDTH 15.6 % (11.5-14.5); WHITE BLOOD COUNT 7.4 X10'3 (4.5-11.0)
[2018-07-08 15:47] LABS: ALBUMIN 3.2 G/DL (3.4-5.0); ANION GAP 9 (8-16); BLOOD UREA NITROGEN 38 MG/DL (7-18); CALCIUM 8.8 MG/DL (8.5-10.1); CHLORIDE 98 MMOL/L (99-107); CREATININE 1.31 MG/DL (0.40-0.90); GLUCOSE 91 MG/DL (70-104); POTASSIUM 4.6 MMOL/L (3.5-5.1); SODIUM 137 MMOL/L (135-145); TOTAL CARBON DIOXIDE 29.7 MMOL/L (24-32); eGFR 40 ML/MIN
[2018-07-08 15:57] LABS: LARGE PLATELETS FEW; PLATELET ESTIMATE NORMAL
[2018-07-08 15:58] LABS: PROTHROMBIN TIME 10.6 SECONDS (9.0-12.0)
[2018-07-08] MEDS ORDERED: normal saline 1000ml 1,000 ML IV SCH (16:44)
[2018-07-08] MEDS ORDERED: LIDOcaine 1%/PF 5ML 10 MG/ML VIAL SQ ONE (16:45)
[2018-07-08] MEDS ORDERED: fentaNYL/PF 50MCG/1 ML 2ML syringe IV PRN (16:45)
[2018-07-08] MEDS ORDERED: LIDOcaine 1%/PF 5ML 10 MG/ML VIAL ONE (16:49)
[2018-07-08] MEDS ORDERED: iohexol 300mg/ml 100ml inj. ONE (16:49)
--- NOTE | 2018-07-08 16:52 | NUR ---
RECEIVED CALL FROM ANGIO RN THAT PATIENT HAS ORDER FOR LOWER EXTREMITY ANGIOGRAM ORDERED. LET ANGIO RN KNOW THAT PATIENT HAS NOT BEEN NPO AND ANGIO RN STATED SHE IS AWARE AND "LET THE DR KNOW, BUT HE'S OKAY WITH IT." HEPARIN GTT NOT STARTED PATIENT IS GOING DOWN TO ANGIO FOR PROCEDURE. Addendum: 07/08/18 at 1703 by William De Leon RN ANGIO JULIE. MARIA
--- NOTE | 2018-07-08 17:03 | NUR ---
DR PRINCE IN TO SEE PATIENT.
--- NOTE | 2018-07-08 17:11 | NUR ---
DR CÁRDENAS IN TO SEE PATIENT.
[2018-07-08 17:34] LABS: CLARITY,URINE CLEAR (Clear); COLOR,URINE YELLOW (Yellow); GLUCOSE, URINE NEGATIVE (Neg); KETONES,URINE NEGATIVE (Neg); LEUKOCYTE ESTERASE ,URINE SMALL (Neg); NITRITES, URINE NEGATIVE (Neg); OCCULT BLOOD,URINE NEGATIVE (Neg); PH,URINE 5.5 (4.8-8.0); PROTEIN,URINE NEGATIVE (Neg); UROBILINOGEN,URINE 0.2 E.U/dL (0.2-1.0)
[2018-07-08 17:39] LABS: RBC,URINE NONE SEEN /HPF (0-2); UA COLLECTION TYPE CLN CATCH MIDSTREAM
[2018-07-08 17:40] LABS: BACTERIA,URINE FEW /HPF (Neg); MUCUS STRANDS NONE SEEN /LPF (Neg); SQUAMOUS EPITHELIAL CELL,UR FEW /LPF (FEW)
--- NOTE | 2018-07-08 18:25 | NUR ---
Received report from MARIA Thomas. Patient is awake and alert on 2L NC. In no apparent distress. Call light and items of frequent use within reach. Will continue to monitor.
--- NOTE | 2018-07-08 18:26 | NUR ---
Problems reprioritized. Patient report given, questions answered & plan of care reviewed with MARIA DAWKINS.
[2018-07-08 19:12] VITALS: BP 117/58
[2018-07-08] MEDS: heparin 10,000 units/1 ML INJ IV PRN (19:44)
[2018-07-08] MEDS: heparin 25,000 UNIT/250ml bag 250 ML IV SCH (19:50)
[2018-07-08 20:00] VITALS: BP 83/53
[2018-07-08 23:30] VITALS: BP 109/61
[2018-07-09 02:50] LABS: BASOPHILS % (AUTO) 0.4 % (0-1); EOSINOPHILS # (AUTO) 0.3 X10'3 (0-0.9); EOSINOPHILS % (AUTO) 4.4 % (0-6); HEMOGLOBIN 12.4 g/dl (12.0-16.0); LYMPHOCYTES # (AUTO) 1.6 X10'3 (1.1-4.8); LYMPHOCYTES % (AUTO) 21.9 % (21-51); MEAN CORPUSCULAR HEMOGLOBIN 29.6 PG (27.0-31.0); MEAN CORPUSCULAR HGB CONC 31.8 % (33.0-36.5); MEAN CORPUSCULAR VOLUME 92.9 FL (78-98); MEAN PLATELET VOLUME 10.6 FL (7.4-10.4); MONOCYTES # (AUTO) 0.8 X10'3 (0-0.9); NEUTROPHILS # (AUTO) 4.7 X10'3 (1.8-7.7); NEUTROPHILS % (AUTO) 62.3 % (42-75); PLATELET COUNT 173 X10'3 (140-440); RED CELL DISTRIBUTION WIDTH 15.5 % (11.5-14.5); WHITE BLOOD COUNT 7.5 X10'3 (4.5-11.0)
--- NOTE | 2018-07-09 05:00 | NUR ---
Critical Lab results DVT PTT >153 called to MD DAVID. No new orders received. aware.
--- NOTE | 2018-07-09 05:02 | NUR ---
Heparin Drip on hold for next 120 minutes.
--- NOTE | 2018-07-09 06:30 | NUR ---
Problems reprioritized. Patient report given, questions answered & plan of care reviewed with MARIA Tellez.
--- NOTE | 2018-07-09 06:30 | NUR ---
Patient in room ANJU 354. I have received report from Idalia SIFUENTES and had the opportunity to ask questions and assume patient care.
[2018-07-09 07:00] VITALS: BP 119/75
[2018-07-09] MEDS: ipratropium/albuterol 3ml nebule NEB SCH ×4 (07:00→21:33)
--- NOTE | 2018-07-09 07:10 | NUR ---
No supporting lab data for heparin drip will obtain new labs.
[2018-07-09 07:14] LABS: LARGE PLATELETS FEW; PLATELET ESTIMATE NORMAL
--- NOTE | 2018-07-09 07:30 | NUR ---
contacted lab for stat PTT
--- NOTE | 2018-07-09 07:50 | NUR ---
lab has not come to draw. contacted lab for stat PTT
--- NOTE | 2018-07-09 08:15 | NUR ---
lab has not come to draw. contacted lab for stat PTT
[2018-07-09] MEDS: HYDROcodone/acetaminophen 10/325mg tab PO PRN ×3 (08:28→23:47)
[2018-07-09] MEDS: LIDOcaine 5% patch TP SCH (08:29)
[2018-07-09] MEDS: furosemide 20MG tablet PO SCH (08:29)
[2018-07-09] MEDS: aspirin 81mg tablet.DR PO SCH (08:29)
[2018-07-09] MEDS: lactobacillus rhamnosus 10,000 MMU CELLS/CAPSULE PO SCH ×2 (08:29→19:39)
[2018-07-09] MEDS: metoprolol tartrate 25mg tablet PO SCH ×2 (08:30→19:39)
[2018-07-09] MEDS: lisinopril 10 MG tablet PO SCH (08:30)
--- NOTE | 2018-07-09 09:01 | NUR ---
PTT 33. RESTARTING HEPARIN AT 9 UNITS PER HOUR. HEPARIN WAS OFF FOR 4 HOURS.
--- NOTE | 2018-07-09 09:02 | NUR ---
Correction - PTT 33. RESTARTING HEPARIN AT 9 mls PER HOUR. HEPARIN WAS OFF FOR 4 HOURS.
[2018-07-09 12:00] VITALS: BP 113/84
[2018-07-09] MEDS: normal saline 1000ml 1,000 ML IV SCH (13:50)
[2018-07-09] MEDS: heparin 25,000 UNIT/250ml bag 250 ML IV SCH (15:30)
--- NOTE | 2018-07-09 18:14 | NUR ---
Received report from MARIA Tellez and MARIA Devi. Patient is awake and alert on 2L NC, in no apparent distress. Call light and items of frequent use within reach. Will continue to monitor.
--- NOTE | 2018-07-09 18:21 | NUR ---
Problems reprioritized. Patient report given, questions answered & plan of care reviewed with Idalia SIFUENTES.
[2018-07-09 20:00] VITALS: BP 104/73
[2018-07-09 23:30] VITALS: BP 117/63
[2018-07-10] MEDS: normal saline 1000ml 1,000 ML IV SCH ×2 (02:04→17:05)
[2018-07-10 03:30] LABS: BASOPHILS % (AUTO) 0.4 % (0-1); EOSINOPHILS # (AUTO) 0.3 X10'3 (0-0.9); EOSINOPHILS % (AUTO) 4.7 % (0-6); HEMATOCRIT 35.6 % (35.0-45.0); HEMOGLOBIN 11.4 g/dl (12.0-16.0); LYMPHOCYTES # (AUTO) 1.4 X10'3 (1.1-4.8); LYMPHOCYTES % (AUTO) 23.4 % (21-51); MEAN CORPUSCULAR HEMOGLOBIN 29.7 PG (27.0-31.0); MEAN CORPUSCULAR VOLUME 92.6 FL (78-98); MEAN PLATELET VOLUME 10.6 FL (7.4-10.4); MONOCYTES # (AUTO) 0.6 X10'3 (0-0.9); NEUTROPHILS # (AUTO) 3.8 X10'3 (1.8-7.7); NEUTROPHILS % (AUTO) 61.5 % (42-75); PLATELET COUNT 161 X10'3 (140-440); RED BLOOD COUNT 3.85 X10'6 (4.20-5.60); RED CELL DISTRIBUTION WIDTH 15.4 % (11.5-14.5); WHITE BLOOD COUNT 6.2 X10'3 (4.5-11.0)
[2018-07-10 03:39] LABS: ALBUMIN 2.8 G/DL (3.4-5.0); ANION GAP 8 (8-16); BLOOD UREA NITROGEN 37 MG/DL (7-18); BUN/CREATININE RATIO 30.1 (6.6-38.0); CALCIUM 8.4 MG/DL (8.5-10.1); CHLORIDE 102 MMOL/L (99-107); CREATININE 1.23 MG/DL (0.40-0.90); GLUCOSE 88 MG/DL (70-104); POTASSIUM 4.1 MMOL/L (3.5-5.1); SODIUM 136 MMOL/L (135-145); TOTAL CARBON DIOXIDE 26.3 MMOL/L (24-32); eGFR 43 ML/MIN
[2018-07-10 04:40] LABS: LARGE PLATELETS FEW; PLATELET ESTIMATE NORMAL
[2018-07-10] MEDS: heparin 25,000 UNIT/250ml bag 250 ML IV SCH ×3 (05:04→16:42)
--- NOTE | 2018-07-10 06:32 | NUR ---
Problems reprioritized. Patient report given, questions answered & plan of care reviewed with MARIA Dave.
--- NOTE | 2018-07-10 06:38 | NUR ---
Patient in room ANJU 354. I have received report from Idalia SIFUENTES and had the opportunity to ask questions and assume patient care.
[2018-07-10 07:00] VITALS: BP 135/74
[2018-07-10] MEDS: ipratropium/albuterol 3ml nebule NEB SCH ×4 (07:00→19:00)
[2018-07-10] MEDS: morphine 2 MG/ML inj. syringe IV PRN (07:26)
[2018-07-10] MEDS: LIDOcaine 5% patch TP SCH (07:27)
[2018-07-10] MEDS: metoprolol tartrate 25mg tablet PO SCH ×2 (08:00→20:00)
[2018-07-10] MEDS: lisinopril 10 MG tablet PO SCH (08:00)
[2018-07-10] MEDS: aspirin 81mg tablet.DR PO SCH (08:00)
[2018-07-10] MEDS: lactobacillus rhamnosus 10,000 MMU CELLS/CAPSULE PO SCH ×2 (08:00→20:23)
[2018-07-10] MEDS ORDERED: iohexol 350 MG/ML 50ML vial IV ONE (09:26)
[2018-07-10] MEDS ORDERED: iohexol 350MG/ML 100ml bottle IV ONE (09:26)
[2018-07-10] MEDS: heparin 10,000 units/1 ML INJ IV PRN (09:32)
--- NOTE | 2018-07-10 09:53 | NUR ---
Patient just left the room to go for CT angiogram via gurney. Heparin gtt ongoing. Hands off report given
[2018-07-10] MEDS: HYDROcodone/acetaminophen 10/325mg tab PO PRN ×3 (10:36→22:05)
[2018-07-10 11:00] VITALS: BP 130/84
--- NOTE | 2018-07-10 12:48 | NUR ---
Reassessment: Documented PO intake significantly improved with intake 100% on heart healthy diet meeting nutrient needs. Pt with colostomy with documented LBM 07/09, no documented total output. Per MD progress notes pt with PVD pending angiogram with IR to determine tx plan. Will continue to follow. Rec: 1. continue heart healthy diet 2. monitor for ONS needs 3. wt per rx Addendum: 07/10/18 at [address] Amended: Links added.
--- NOTE | 2018-07-10 13:09 | NUR ---
CT angiogram result in - notified Dr. Campos via paging system
--- NOTE | 2018-07-10 13:10 | NUR ---
Peripheral pulses check via doppler: right pedal and right anterior tibial are faint while the left pedal and left anterior tibial pulses are audible pulses. Addendum: 07/10/18 at 1442 by Tenzin Membreno RN Notified Dr. Campos via [facility] system
--- NOTE | 2018-07-10 15:19 | NUR ---
Paged Dr. Burrows on his pager number to let him know the CTA was done and result in
--- NOTE | 2018-07-10 16:32 | NUR ---
Received a phone call from the lab, PTT 90 - Held Heparin. Charge nurse Rosalinda cabrera Addendum: 07/10/18 at 1725 by Tenzin Membreno RN Correction - Heparin drip was not held. Heparin dosing adjustment reviewed with another RN. No bolus given, Heparin decreased to 800 units/hr
--- NOTE | 2018-07-10 18:43 | NUR ---
Problems reprioritized. Patient report given, questions answered & plan of care reviewed with Lynn SIFUENTES.
[2018-07-10 20:00] VITALS: BP 103/57
[2018-07-11] VITALS: BP 156/84
[2018-07-11] MEDS: HYDROcodone/acetaminophen 10/325mg tab PO PRN ×5 (03:20→22:06)
[2018-07-11] MEDS: normal saline 1000ml 1,000 ML IV SCH ×2 (03:25→16:24)
--- NOTE | 2018-07-11 05:25 | NUR ---
Lab notified about PTT being drawn late and need for getting result. They will be processing it RAVEN
[2018-07-11 05:58] LABS: ALBUMIN 2.6 G/DL (3.4-5.0); ANION GAP 9 (8-16); BLOOD UREA NITROGEN 25 MG/DL (7-18); BUN/CREATININE RATIO 25.8 (6.6-38.0); CALCIUM 8.2 MG/DL (8.5-10.1); CHLORIDE 105 MMOL/L (99-107); CREATININE 0.97 MG/DL (0.40-0.90); GLUCOSE 87 MG/DL (70-104); POTASSIUM 4.1 MMOL/L (3.5-5.1); SODIUM 138 MMOL/L (135-145); TOTAL CARBON DIOXIDE 23.8 MMOL/L (24-32); eGFR 56 ML/MIN
--- NOTE | 2018-07-11 06:26 | NUR ---
Problems reprioritized. Patient report given, questions answered & plan of care reviewed with MARIA Dave.
--- NOTE | 2018-07-11 06:31 | NUR ---
Patient in room ANJU 354. I have received report from Lynn SIFUENTES and had the opportunity to ask questions and assume patient care.
[2018-07-11 06:43] LABS: BASOPHILS % (AUTO) 0.8 % (0-1); EOSINOPHILS % (AUTO) 5 % (0-6); HEMOGLOBIN 10.8 g/dl (12.0-16.0); LYMPHOCYTES % (AUTO) 22.2 % (21-51); MEAN CORPUSCULAR HEMOGLOBIN 31.1 PG (27.0-31.0); MEAN CORPUSCULAR HGB CONC 33.7 % (33.0-36.5); MEAN CORPUSCULAR VOLUME 92.5 FL (78-98); MEAN PLATELET VOLUME 11.3 FL (7.4-10.4); MONOCYTES % (AUTO) 10.1 % (2-12); NEUTROPHILS % (AUTO) 61.9 % (42-75); PLATELET COUNT 136 X10'3 (140-440); RED BLOOD COUNT 3.46 X10'6 (4.20-5.60); RED CELL DISTRIBUTION WIDTH 14.3 % (11.5-14.5); WHITE BLOOD COUNT 4.9 X10'3 (4.5-11.0)
[2018-07-11 06:44] LABS: EOSINOPHILS # (AUTO) 0.2 X10'3 (0-0.9); LYMPHOCYTES # (AUTO) 1.1 X10'3 (1.1-4.8); MONOCYTES # (AUTO) 0.5 X10'3 (0-0.9); NEUTROPHILS # (AUTO) 3.1 X10'3 (1.8-7.7)
[2018-07-11] MEDS: ipratropium/albuterol 3ml nebule NEB SCH ×4 (07:00→19:00)
[2018-07-11 07:14] VITALS: BP 137/80
[2018-07-11] MEDS: LIDOcaine 5% patch TP SCH (07:47)
[2018-07-11] MEDS: lisinopril 10 MG tablet PO SCH (07:48)
[2018-07-11] MEDS: metoprolol tartrate 25mg tablet PO SCH ×2 (07:48→19:33)
[2018-07-11] MEDS: lactobacillus rhamnosus 10,000 MMU CELLS/CAPSULE PO SCH ×2 (07:48→19:33)
[2018-07-11] MEDS: apixaban 5mg tablet PO SCH (08:00)
[2018-07-11] MEDS: aspirin 81mg tablet.DR PO SCH (08:00)
[2018-07-11] MEDS: clopidogrel 75mg tablet PO SCH (09:34)
--- NOTE | 2018-07-11 09:36 | NUR ---
Plavix given per Dr. Burrows's instructions. Addendum: 07/11/18 at 1215 by Tenzin Membreno RN Dr. Burrows was notified during his rounds that CT Angiogram result was in for review and that patient's doppler pulses on the right foot is faint compare to doppler pulses on the left foot.
[2018-07-11 11:00] VITALS: BP 99/58
[2018-07-11] MEDS: heparin 25,000 UNIT/250ml bag 250 ML IV SCH (14:03)
[2018-07-11 18:00] VITALS: BP 146/82
--- NOTE | 2018-07-11 18:47 | NUR ---
Problems reprioritized. Patient report given, questions answered & plan of care reviewed with Adolph SIFUENTES.
--- NOTE | 2018-07-11 18:48 | NUR ---
Patient in room ANJU 354. I have received report from MARIA brooks and had the opportunity to ask questions and assume patient care.
[2018-07-11] MEDS: morphine 2 MG/ML inj. syringe IV PRN (19:38)
--- NOTE | 2018-07-11 20:00 | NUR ---
Pt refused to let me use doppler to find pedal pulses, or even touch them. She stated it "hurts too much, and no one can find them anyway."
[2018-07-11] MEDS: temazepam 15mg capsule PO PRN (22:05)
[2018-07-12] VITALS (23 sets, daily range): BP systolic 105–186; BP diastolic 39–96
[2018-07-12 06:12] LABS: BASOPHILS % (AUTO) 0.7 % (0-1); EOSINOPHILS # (AUTO) 0.4 X10'3 (0-0.9); EOSINOPHILS % (AUTO) 5.8 % (0-6); HEMATOCRIT 37.4 % (35.0-45.0); LYMPHOCYTES # (AUTO) 0.9 X10'3 (1.1-4.8); LYMPHOCYTES % (AUTO) 14.1 % (21-51); MEAN CORPUSCULAR HEMOGLOBIN 30.1 PG (27.0-31.0); MEAN CORPUSCULAR HGB CONC 32.1 % (33.0-36.5); MEAN CORPUSCULAR VOLUME 93.6 FL (78-98); MEAN PLATELET VOLUME 10.5 FL (7.4-10.4); MONOCYTES # (AUTO) 0.5 X10'3 (0-0.9); MONOCYTES % (AUTO) 8.9 % (2-12); NEUTROPHILS # (AUTO) 4.3 X10'3 (1.8-7.7); NEUTROPHILS % (AUTO) 70.5 % (42-75); PLATELET COUNT 142 X10'3 (140-440); RED BLOOD COUNT 3.99 X10'6 (4.20-5.60); RED CELL DISTRIBUTION WIDTH 15.3 % (11.5-14.5); WHITE BLOOD COUNT 6.2 X10'3 (4.5-11.0)
--- NOTE | 2018-07-12 06:31 | NUR ---
Problems reprioritized. Patient report given, questions answered & plan of care reviewed with MARIA De La Torre.
[2018-07-12 06:35] LABS: ALBUMIN 2.7 G/DL (3.4-5.0); ANION GAP 10 (8-16); BLOOD UREA NITROGEN 18 MG/DL (7-18); BUN/CREATININE RATIO 19.4 (6.6-38.0); CALCIUM 8.8 MG/DL (8.5-10.1); CHLORIDE 107 MMOL/L (99-107); CREATININE 0.93 MG/DL (0.40-0.90); GLUCOSE 87 MG/DL (70-104); POTASSIUM 4.4 MMOL/L (3.5-5.1); SODIUM 141 MMOL/L (135-145); TOTAL CARBON DIOXIDE 24.4 MMOL/L (24-32); eGFR 59 ML/MIN
--- NOTE | 2018-07-12 06:38 | NUR ---
Patient in room ANJU 354. I have received report from REGI SIFUENTES and had the opportunity to ask questions and assume patient care.
[2018-07-12] MEDS: clopidogrel 75mg tablet PO SCH (07:09)
[2018-07-12] MEDS: lactobacillus rhamnosus 10,000 MMU CELLS/CAPSULE PO SCH ×2 (07:24→20:00)
[2018-07-12] MEDS: lisinopril 10 MG tablet PO SCH (07:25)
[2018-07-12] MEDS: metoprolol tartrate 25mg tablet PO SCH ×2 (07:25→20:00)
[2018-07-12] MEDS: HYDROcodone/acetaminophen 10/325mg tab PO PRN (07:26)
[2018-07-12] MEDS: LIDOcaine 5% patch TP SCH (07:27)
[2018-07-12] MEDS: normal saline 1000ml 1,000 ML IV SCH ×2 (07:30→23:33)
[2018-07-12] MEDS: ipratropium/albuterol 3ml nebule NEB SCH ×3 (07:36→19:24)
--- NOTE | 2018-07-12 11:00 | NUR ---
HEP DRIP PLACED ON HOLD FOR OR
[2018-07-12] MEDS ORDERED: heparin 10,000 units/1 ML INJ ONE ×2 (11:34→11:43)
--- NOTE | 2018-07-12 11:44 | NUR ---
no svn tx given patient went to surgery
[2018-07-12] MEDS ORDERED: ceFAZolin 1GM/D5W- ADD-VANTAGE 50 ML IV ONE (11:45)
[2018-07-12] MEDS ORDERED: LIDOcaine 1% (10mg/ml) 2ml vial ONE (12:09)
[2018-07-12] MEDS ORDERED: fentaNYL /PF 50mcg/ml 5ml ampule ONE (12:17)
[2018-07-12] MEDS ORDERED: rocuronium 10mg/ml inj IV ONE ×2 (12:18→12:26)
[2018-07-12] MEDS ORDERED: propofol inj 20 ML IV ONE (12:18)
[2018-07-12] MEDS ORDERED: ePHEDrine 50MG/ML INJ. ONE (12:26)
[2018-07-12] MEDS ORDERED: sevoflurane 250ml liquid IH ONE (12:26)
[2018-07-12] MEDS ORDERED: midazolam 2 mg/2 ml injection ONE (12:36)
[2018-07-12] MEDS ORDERED: ringers solution, lacted 1,000 ML IV SCH ×2 (14:32→15:05)
[2018-07-12] MEDS ORDERED: meperidine/PF 25mg/ml syringe IV PRN ×4 (14:35→15:05)
[2018-07-12] MEDS ORDERED: ondansetron/PF 4mg/2ml inj IV PRN ×2 (14:35→15:05)
[2018-07-12] MEDS ORDERED: morphine 4 MG/ML inj SYRINge IV PRN ×4 (14:35→15:05)
[2018-07-12] MEDS ORDERED: iohexol 300 MG/1 ML 50ml polymer ONE (14:41)
--- NOTE | 2018-07-12 14:46 | NUR ---
no svn tx given patient is still in surgery
[2018-07-12 15:50] LABS: INR 1.1 INR; PROTHROMBIN TIME 11.1 SECONDS (9.0-12.0)
[2018-07-12] MEDS ORDERED: protamine sulfate 10mg/ml inj. ONE (15:51)
[2018-07-12 15:52] LABS: PARTIAL THROMBOPLASTIN TIME > 153 SECONDS (22-32)
[2018-07-12] MEDS ORDERED: propofol 1000mg/100ml bottle 100 ML IV PRN ×2 (16:24→16:36)
[2018-07-12 16:36] LABS: ISTAT ANION GAP 10 (8-12); ISTAT BUN 10 mg/dL (6-19); ISTAT CL 106 mmol/L (99-107); ISTAT CREATININE 0.6 mg/dL (0.6-1.1); ISTAT GLUCOSE 101 mg/dL (70-104); ISTAT HGB 7.5 g/dl (12.0-16.0); ISTAT Hct 22 %PCV (35-48); ISTAT IONIZED CALCIUM 1.35 mmol/L (1.03-1.32); ISTAT K 4.3 mmol/L (3.5-5.1); ISTAT NA 138 mmol/L (135-145); ISTAT TOTAL CO2 22 mmol/L (24-32); ISTAT eGFR > 90 ML/MIN; POC BUN/CREATININE RATIO 16.7 (6.6-38.0)
[2018-07-12 16:52] LABS: PARTIAL THROMBOPLASTIN TIME 33 SECONDS (22-32)
--- NOTE | 2018-07-12 16:55 | NUR ---
Received from OR via BED , accompanied by Anesthesiologist DR DYSON and report given by Anesthesiolgist. PATIENT SEDATED, PROPOFOL STARTED W/ FENTINYL GTT, ET TUBE 23 CM AT TEETH SEE RT NOTES FOR VENT SETTINGS, V/S STABLE, NO S/S OF PAIN, ISLAND DRESSING INNNER RIGHT LEG AND WV AT 125 CONTINOUS SUCTION RIGHT GROIN WITH SMALL LEAK HOWEVER MD STATED IT WAS OK TO CONTINUE WITH WV DUE TO COMPRESSED SPONGE DRESSING TO GROIN SITE CDI. APPROX 5CC IN DRAIN RED FLUID. 22G PIV TO RUE, 20G PIV TO LUE, ART LINE TO RUE, CENTRAL LINE TO RIGHT NECK, F/C DRAINAING CLEAR YELLOW FLUID. ALBUMIN AND BLOOD ORDERED AND TO BE GIVEN SOON ORDER IS PROCESSED.
[2018-07-12] MEDS: FENTANYL-0.9 % NACL/PF 100 ML IV PRN (17:13)
[2018-07-12] MEDS ORDERED: albumin (Human) 5% 250ml 250 ML IV ONE ×2 (17:15→17:19)
[2018-07-12 17:21] LABS: ABG BASE EXCESS -5.5 mmol/L (-2.0-3.0); ABG HCO3 19.9 mmol/L (22.0-26.0); ABG OXYGEN SATURATION 92.6 % (95-98); ABG PCO2 (T) 38.4 mmHg (32.0-45.0); ABG PH (T) 7.333 (7.350-7.450); ABG PO2 (T) 68.6 mmHg (83-108); FCOHb 0.1 % (0.5-1.5); FMetHb 0.2 % (0.3-1.12); FO2Hb 92.3 % (94-100); PATIENT TEMPERATURE 36.8; PEEP 5 cm H2O; RESPIRATORY RATE 12 b/min; TIDAL VOLUME 450 mL; TOTAL HEMOGLOBIN 8.3 G/dl (12.0-16.0)
[2018-07-12] MEDS ORDERED: albumin (human) 25% 100ml IV 100 ML IV ONE (17:25)
[2018-07-12] MEDS ORDERED: midazolam 100mg in NS 100ml 100 ML IV PRN (17:47)
--- NOTE | 2018-07-12 17:55 | NUR ---
PATIENT SEDATED, PROPOFOL D/C, VERSED STARTED W/ FENTINYL GTT, ET TUBE 23 CM AT TEETH SEE RT NOTES FOR VENT SETTINGS, V/S STABLE, NO S/S OF PAIN, ISLAND DRESSING INNNER RIGHT LEG AND WV AT 125 CONTINOUS SUCTION RIGHT GROIN WITH SMALL LEAK HOWEVER MD STATED IT WAS OK TO CONTINUE WITH WV DUE TO COMPRESSED SPONGE DRESSING TO GROIN SITE CDI. APPROX 5CC IN DRAIN RED FLUID. 22G PIV TO RUE, 20G PIV TO LUE, ART LINE TO RUE, CENTRAL LINE TO RIGHT NECK, F/C DRAINING CLEAR YELLOW FLUID. ALBUMIN INFUSED AND BLOOD TO BE GIVEN NEXT, ABG AND CXR DONE AND DR PRINCE HAS VIEWED RESULTS, PATIENT TAKEN TO 2012 CICU AND HOOKED UP TO MONITORS AND REPORT GIVEN TO CICU RN WHO HAS TAKEN OVER PATIENT CARE.
--- NOTE | 2018-07-12 18:15 | NUR ---
Received to room 2012 at 1755. Placed on ventilator, to electroformer, arterial line and CVP line pressure monitored with good wave form. Mendoza cath to gravity drainage. Dressings are dry and intact. Wound VAC with good seal draining sanguinous drainage, 5 ML in canister. Patient is on fentanyl and versed. Problems reprioritized. Patient report given, questions answered & plan of care reviewed with [].
--- NOTE | 2018-07-12 18:30 | NUR ---
Patient in room CICU 2012. I have received report from Helga SIFUENTES, and had the opportunity to ask questions and assume patient care.
--- NOTE | 2018-07-12 19:00 | NUR ---
PT intubated and mechanically vented, tolerating well. O2 sat >95%. PT is sedated with Fentanyl and versed, tolerating well. PT has tripple lumen CVL to RT IJ, Art line to RT radial, PIV x2. PT has Prevena [place] to RT groin, it is intact with suction running @ 125mmHg. There is a small amount of blood pooling, will continue to monitor. Sanguinous drainage noted in tubing and canister. PT has island DRG just above Prevena, CDI as well to the inner thigh, some drainage noted, Drsg is intact. PT noted to be in SR with ectopy, Multifocal PVC's. Will look into labs. PT has NS running @ 75ml/hr. Mendoza draining to gravity. Colostomy to LLQ with brown stool noted. PT ABD is soft but distended. Bilat soft wrist restraints in place and secure. Bed is locked and low. Will continue to monitor.
[2018-07-12 19:36] LABS: MEAN PLATELET VOLUME 10.6 FL (7.4-10.4); PLATELET COUNT 160 X10'3 (140-440)
[2018-07-12 19:38] LABS: MEAN CORPUSCULAR HEMOGLOBIN 29.9 PG (27.0-31.0); MEAN CORPUSCULAR HGB CONC 32.2 % (33.0-36.5); MEAN CORPUSCULAR VOLUME 92.8 FL (78-98); RED CELL DISTRIBUTION WIDTH 15.3 % (11.5-14.5)
[2018-07-12 19:41] LABS: ALBUMIN 2.8 G/DL (3.4-5.0); ANION GAP 9 (8-16); BLOOD UREA NITROGEN 13 MG/DL (7-18); BUN/CREATININE RATIO 16.5 (6.6-38.0); CALCIUM 8.4 MG/DL (8.5-10.1); CHLORIDE 107 MMOL/L (99-107); CREATININE 0.79 MG/DL (0.40-0.90); GLUCOSE 114 MG/DL (70-104); MAGNESIUM 1.2 MG/DL (1.5-2.4); POTASSIUM 4.5 MMOL/L (3.5-5.1); SODIUM 140 MMOL/L (135-145); TOTAL CARBON DIOXIDE 24.3 MMOL/L (24-32); eGFR 71 ML/MIN
[2018-07-12 19:46] LABS: HEMOGLOBIN 6.9 g/dl (12.0-16.0)
[2018-07-12 19:47] LABS: HEMATOCRIT 21.4 % (35.0-45.0)
[2018-07-12] MEDS ORDERED: magnesium 4gm in 100ml NS 100 ML IV ONE (19:50)
[2018-07-12 20:18] LABS: TOTAL CELLS COUNTED 100
[2018-07-12 20:19] LABS: ANISOCYTOSIS FEW; PLATELET ESTIMATE NORMAL; POIKILOCYTOSIS FEW
--- NOTE | 2018-07-12 21:00 | NUR ---
Labs drawn, H&H were critical as well as MG low at 1.2. Dr Burrows notified. Orders received to transfuse 2 units PRBC's and replace mag. Dr Burrows also informed of blood pooling under the [place] Drsg. No new orders received at this time. Wound team was called and message left requesting for them to take a look at and assess the [place] before the weekend. Will continue to monitor closely.
[2018-07-12 21:19] LABS: PARTIAL THROMBOPLASTIN TIME 35 SECONDS (22-32)
[2018-07-12] MEDS ORDERED: magnesium 2GM in 50ml NS 50 ML IV ONE (23:25)
[2018-07-12] MEDS: ceFOXitin 1 GM ADDVANTAGE BAG 50 ML IV SCH (23:33)
[2018-07-13] VITALS (26 sets, daily range): BP systolic 82–140; BP diastolic 44–76
[2018-07-13] MEDS ORDERED: ceFOXitin 1 GM ADDVANTAGE BAG 1,000 GM in normal saline 100ml IV soln 100 ML IV SCH ×2
--- NOTE | 2018-07-13 01:00 | NUR ---
2nd unit of blood is transfusing. PT has tolerated well. VSS. Bed is locked and low. Bilat soft wrist restraints remain in place. Will continue to monitor.
[2018-07-13] MEDS: FENTANYL-0.9 % NACL/PF 100 ML IV PRN (02:38)
[2018-07-13 03:35] LABS: ABG BASE EXCESS -8.2 mmol/L (-2.0-3.0); ABG HCO3 17.9 mmol/L (22.0-26.0); ABG OXYGEN SATURATION 94.5 % (95-98); ABG PCO2 (T) 39.2 mmHg (32.0-45.0); ABG PH (T) 7.278 (7.350-7.450); FCOHb 0.7 % (0.5-1.5); FMetHb 0.2 % (0.3-1.12); FO2Hb 93.6 % (94-100); MINUTE VOLUME 6 L/min; PATIENT TEMPERATURE 37.3; PEEP 5 cm H2O; RESPIRATORY RATE 12 b/min; RESPIRATORY RATE (OBSERVED) 12 b/min; TIDAL VOLUME 450 mL; TOTAL HEMOGLOBIN 10.4 G/dl (12.0-16.0)
[2018-07-13 04:36] LABS: BASOPHILS % (AUTO) 0.1 % (0-1); EOSINOPHILS % (AUTO) 0.6 % (0-6); HEMATOCRIT 28.4 % (35.0-45.0); HEMOGLOBIN 9.4 g/dl (12.0-16.0); LYMPHOCYTES # (AUTO) 0.6 X10'3 (1.1-4.8); LYMPHOCYTES % (AUTO) 8.1 % (21-51); MEAN CORPUSCULAR HEMOGLOBIN 30.3 PG (27.0-31.0); MEAN CORPUSCULAR HGB CONC 33.2 % (33.0-36.5); MEAN CORPUSCULAR VOLUME 91.4 FL (78-98); MEAN PLATELET VOLUME 10.8 FL (7.4-10.4); MONOCYTES # (AUTO) 0.7 X10'3 (0-0.9); MONOCYTES % (AUTO) 8.1 % (2-12); NEUTROPHILS # (AUTO) 6.7 X10'3 (1.8-7.7); NEUTROPHILS % (AUTO) 83.1 % (42-75); PLATELET COUNT 115 X10'3 (140-440); RED BLOOD COUNT 3.11 X10'6 (4.20-5.60); RED CELL DISTRIBUTION WIDTH 14.8 % (11.5-14.5)
[2018-07-13 04:53] LABS: ALANINE AMINOTRANSFERASE 8 U/L (12-78); ALBUMIN 2.4 G/DL (3.4-5.0); ALKALINE PHOSPHATASE 46 IU/L (46-116); ANION GAP 12 (8-16); ASPARTATE AMINO TRANSFERASE 11 U/L (10-37); BILIRUBIN,TOTAL 0.8 MG/DL (0.1-1.0); BLOOD UREA NITROGEN 15 MG/DL (7-18); BUN/CREATININE RATIO 15.6 (6.6-38.0); CALCIUM 8.2 MG/DL (8.5-10.1); CHLORIDE 108 MMOL/L (99-107); CREATININE 0.96 MG/DL (0.40-0.90); GLUCOSE 114 MG/DL (70-104); MAGNESIUM 3.4 MG/DL (1.5-2.4); POTASSIUM 4.4 MMOL/L (3.5-5.1); SODIUM 141 MMOL/L (135-145); TOTAL CARBON DIOXIDE 20.6 MMOL/L (24-32); TOTAL PROTEIN 4.7 G/DL (6.4-8.2); eGFR 57 ML/MIN
[2018-07-13 05:31] LABS: ANISOCYTOSIS FEW; BURR CELLS 1+; LARGE PLATELETS FEW; PLATELET ESTIMATE DECREASED; TOTAL CELLS COUNTED 100
--- NOTE | 2018-07-13 06:30 | NUR ---
Problems reprioritized. Patient report given, questions answered & plan of care reviewed with Amy SIFUENTES.
--- NOTE | 2018-07-13 06:45 | NUR ---
Patient in room CICU 2012. I have received report from MARIA Ny and had the opportunity to ask questions and assume patient care.
[2018-07-13] MEDS: ipratropium/albuterol 3ml nebule NEB SCH ×4 (07:45→20:08)
[2018-07-13] MEDS: metoprolol tartrate 25mg tablet PO SCH ×2 (08:00→20:00)
[2018-07-13] MEDS: lisinopril 10 MG tablet PO SCH (08:00)
[2018-07-13] MEDS: ceFOXitin 1 GM ADDVANTAGE BAG 50 ML IV SCH (08:34)
[2018-07-13] MEDS: LIDOcaine 5% patch TP SCH (08:34)
[2018-07-13] MEDS: lactobacillus rhamnosus 10,000 MMU CELLS/CAPSULE PO SCH ×2 (08:35→20:41)
[2018-07-13] MEDS: clopidogrel 75mg tablet PO SCH (08:35)
--- NOTE | 2018-07-13 09:30 | NUR ---
Patient in room CICU 2011. I have received report from Amy SIFUENTES and had the opportunity to ask questions and assume patient care.
[2018-07-13] MEDS: normal saline 1000ml 1,000 ML IV SCH ×2 (10:12→23:30)
--- NOTE | 2018-07-13 11:09 | NUR ---
Reassessment 07/13: Pt is NPO s/p right femoral to popliteal bypass with graft. Per RN she is beginning to wake up. Surgical wound present to right groin and leg with wound vac. Noted, low Benson score. recommend heart healthy diet is resumed as medically indicated. Will need written high protein education handout r/t wound heal when pt is awake and alert. Will monitor PO intake when diet is advanced and monitor need for additional protein or ONS. LBM noted on 07/12 however last stool output documented as 400 ml on 07/07, will continue to monitor. Recommend: 1. advance diet as medically indicated to heart healthy 2. monitor for ONS needs or additional protein when diet is advanced 3. wt per rx Addendum: 07/13/18 at [address] Amended: Links added.
[2018-07-13 11:32] LABS: HEMATOCRIT 25.6 % (35.0-45.0); HEMOGLOBIN 8.5 g/dl (12.0-16.0); MEAN CORPUSCULAR HEMOGLOBIN 29.9 PG (27.0-31.0); MEAN CORPUSCULAR HGB CONC 33.2 % (33.0-36.5); MEAN CORPUSCULAR VOLUME 90.2 FL (78-98); MEAN PLATELET VOLUME 10.8 FL (7.4-10.4); PLATELET COUNT 120 X10'3 (140-440); RED BLOOD COUNT 2.83 X10'6 (4.20-5.60); RED CELL DISTRIBUTION WIDTH 14.8 % (11.5-14.5); WHITE BLOOD COUNT 7.4 X10'3 (4.5-11.0)
[2018-07-13] MEDS ORDERED: racepinephrine 11.25mg/0.5ml nebule NEB PRN (15:55)
[2018-07-13] MEDS ORDERED: ipratropium/albuterol 3ml nebule NEB PRN (15:55)
[2018-07-13] MEDS ORDERED: CADD PCA waste documentation MC PRN (15:55)
[2018-07-13] MEDS ORDERED: naloxone 0.4 mg/ml inj IV PRN (15:55)
[2018-07-13] MEDS: HYDROmorphone/NS 1 mg/ml CADD 50 ML IV SCH ×4 (16:10→23:00)
--- NOTE | 2018-07-13 16:25 | NUR ---
Patient extubated at 1622, tolerated well, no c/o pain at this time. Good lung sounds on both sides
[2018-07-13 16:40] LABS: HEMATOCRIT 26.2 % (35.0-45.0); HEMOGLOBIN 8.6 g/dl (12.0-16.0); MEAN CORPUSCULAR HGB CONC 33.1 % (33.0-36.5); MEAN CORPUSCULAR VOLUME 90.8 FL (78-98); MEAN PLATELET VOLUME 10.1 FL (7.4-10.4); PLATELET COUNT 131 X10'3 (140-440); RED BLOOD COUNT 2.88 X10'6 (4.20-5.60); WHITE BLOOD COUNT 9.5 X10'3 (4.5-11.0)
--- NOTE | 2018-07-13 18:30 | NUR ---
Problems reprioritized. Patient report given, questions answered & plan of care reviewed with Jose Carlos RN.
[2018-07-13] MEDS ORDERED: mineral oil/petrolatum ophthal oint EACHEYE SCH (20:00)
[2018-07-13] MEDS ORDERED: apixaban 5mg tablet PO ONE (22:00)
[2018-07-13] MEDS: temazepam 15mg capsule PO PRN (22:05)
[2018-07-13 23:53] LABS: HEMATOCRIT 22.1 % (35.0-45.0); HEMOGLOBIN 7.3 g/dl (12.0-16.0); MEAN CORPUSCULAR HEMOGLOBIN 30.4 PG (27.0-31.0); MEAN CORPUSCULAR HGB CONC 33.2 % (33.0-36.5); MEAN CORPUSCULAR VOLUME 91.5 FL (78-98); MEAN PLATELET VOLUME 9.8 FL (7.4-10.4); PLATELET COUNT 106 X10'3 (140-440); RED BLOOD COUNT 2.42 X10'6 (4.20-5.60); RED CELL DISTRIBUTION WIDTH 14.8 % (11.5-14.5); WHITE BLOOD COUNT 7.2 X10'3 (4.5-11.0)
[2018-07-14] VITALS (23 sets, daily range): BP systolic 90–165; BP diastolic 58–91
[2018-07-14] MEDS: HYDROmorphone/NS 1 mg/ml CADD 50 ML IV SCH ×9 (01:00→23:27)
[2018-07-14 03:50] LABS: ALBUMIN 2.2 G/DL (3.4-5.0); ANION GAP 11 (8-16); BLOOD UREA NITROGEN 14 MG/DL (7-18); BUN/CREATININE RATIO 17.7 (6.6-38.0); CHLORIDE 108 MMOL/L (99-107); CREATININE 0.79 MG/DL (0.40-0.90); GLUCOSE 100 MG/DL (70-104); POTASSIUM 3.7 MMOL/L (3.5-5.1); SODIUM 140 MMOL/L (135-145); TOTAL CARBON DIOXIDE 20.8 MMOL/L (24-32); eGFR 71 ML/MIN
[2018-07-14 06:18] LABS: HEMATOCRIT 22.8 % (35.0-45.0); HEMOGLOBIN 7.5 g/dl (12.0-16.0); MEAN CORPUSCULAR HEMOGLOBIN 29.9 PG (27.0-31.0); MEAN CORPUSCULAR VOLUME 90.8 FL (78-98); MEAN PLATELET VOLUME 10.3 FL (7.4-10.4); PLATELET COUNT 110 X10'3 (140-440); RED BLOOD COUNT 2.51 X10'6 (4.20-5.60); RED CELL DISTRIBUTION WIDTH 15.2 % (11.5-14.5); WHITE BLOOD COUNT 7.4 X10'3 (4.5-11.0)
[2018-07-14] MEDS: apixaban 5mg tablet PO SCH ×2 (07:58→20:28)
[2018-07-14] MEDS: lactobacillus rhamnosus 10,000 MMU CELLS/CAPSULE PO SCH ×2 (07:58→20:28)
[2018-07-14] MEDS: metoprolol tartrate 25mg tablet PO SCH ×2 (07:59→20:28)
[2018-07-14] MEDS: clopidogrel 75mg tablet PO SCH (08:00)
[2018-07-14] MEDS: lisinopril 10 MG tablet PO SCH (08:00)
[2018-07-14] MEDS: LIDOcaine 5% patch TP SCH ×2 (08:01→11:35)
[2018-07-14] MEDS: aspirin 81mg tablet.DR PO SCH (08:29)
[2018-07-14] MEDS: ipratropium/albuterol 3ml nebule NEB SCH ×3 (09:10→20:51)
[2018-07-14] MEDS: traMADol 50MG tablet PO PRN (11:34)
[2018-07-14] MEDS: normal saline 1000ml 1,000 ML IV SCH (12:50)
[2018-07-14] MEDS ORDERED: HYDROmorphone/NS 1 mg/ml CADD 50 ML IV SCH (17:00)
[2018-07-14 17:40] LABS: HEMATOCRIT 24.8 % (35.0-45.0); HEMOGLOBIN 8.2 g/dl (12.0-16.0); MEAN CORPUSCULAR HEMOGLOBIN 30.2 PG (27.0-31.0); MEAN CORPUSCULAR HGB CONC 33.1 % (33.0-36.5); MEAN CORPUSCULAR VOLUME 91.4 FL (78-98); MEAN PLATELET VOLUME 10.1 FL (7.4-10.4); PLATELET COUNT 123 X10'3 (140-440); RED BLOOD COUNT 2.71 X10'6 (4.20-5.60); RED CELL DISTRIBUTION WIDTH 15.3 % (11.5-14.5); WHITE BLOOD COUNT 8.4 X10'3 (4.5-11.0)
[2018-07-15] VITALS (24 sets, daily range): BP systolic 102–192; BP diastolic 59–117
[2018-07-15] MEDS: ipratropium/albuterol 3ml nebule NEB SCH ×4 (03:00→20:58)
[2018-07-15] MEDS: normal saline 1000ml 1,000 ML IV SCH ×2 (03:00→15:37)
[2018-07-15] MEDS: HYDROmorphone/NS 1 mg/ml CADD 50 ML IV SCH ×5 (03:21→23:15)
--- NOTE | 2018-07-15 06:00 | NUR ---
Patient in room CICU 2012. I have received report from Sweta SIFUENTES and had the opportunity to ask questions and assume patient care.
[2018-07-15 06:05] LABS: BASOPHILS % (AUTO) 0.7 % (0-1); EOSINOPHILS # (AUTO) 0.2 X10'3 (0-0.9); EOSINOPHILS % (AUTO) 3.2 % (0-6); HEMATOCRIT 23.7 % (35.0-45.0); HEMOGLOBIN 7.8 g/dl (12.0-16.0); LYMPHOCYTES # (AUTO) 0.9 X10'3 (1.1-4.8); MEAN CORPUSCULAR HEMOGLOBIN 30.1 PG (27.0-31.0); MEAN CORPUSCULAR HGB CONC 32.7 % (33.0-36.5); MEAN CORPUSCULAR VOLUME 91.9 FL (78-98); MEAN PLATELET VOLUME 10.4 FL (7.4-10.4); MONOCYTES # (AUTO) 0.7 X10'3 (0-0.9); NEUTROPHILS # (AUTO) 4.8 X10'3 (1.8-7.7); NEUTROPHILS % (AUTO) 72.1 % (42-75); PLATELET COUNT 115 X10'3 (140-440); RED BLOOD COUNT 2.58 X10'6 (4.20-5.60); RED CELL DISTRIBUTION WIDTH 15.5 % (11.5-14.5); WHITE BLOOD COUNT 6.6 X10'3 (4.5-11.0)
[2018-07-15 06:08] LABS: ALBUMIN 2.1 G/DL (3.4-5.0); ANION GAP 8 (8-16); BLOOD UREA NITROGEN 11 MG/DL (7-18); BUN/CREATININE RATIO 15.5 (6.6-38.0); CALCIUM 8.1 MG/DL (8.5-10.1); CHLORIDE 109 MMOL/L (99-107); CREATININE 0.71 MG/DL (0.40-0.90); GLUCOSE 103 MG/DL (70-104); POTASSIUM 3.8 MMOL/L (3.5-5.1); SODIUM 141 MMOL/L (135-145); eGFR 81 ML/MIN
[2018-07-15 07:19] LABS: MAGNESIUM 1.7 MG/DL (1.5-2.4)
[2018-07-15] MEDS: LIDOcaine 5% patch TP SCH (07:40)
[2018-07-15] MEDS: clopidogrel 75mg tablet PO SCH (07:41)
[2018-07-15] MEDS: lisinopril 10 MG tablet PO SCH (07:41)
[2018-07-15] MEDS: lactobacillus rhamnosus 10,000 MMU CELLS/CAPSULE PO SCH ×2 (07:41→20:37)
[2018-07-15] MEDS: metoprolol tartrate 25mg tablet PO SCH ×2 (07:41→20:37)
[2018-07-15] MEDS: apixaban 5mg tablet PO SCH ×2 (07:41→20:37)
[2018-07-15] MEDS: aspirin 81mg tablet.DR PO SCH (07:41)
[2018-07-15 07:42] LABS: LARGE PLATELETS FEW; PLATELET ESTIMATE DECREASED
[2018-07-15 10:57] LABS: HEMATOCRIT 25.1 % (35.0-45.0); HEMOGLOBIN 8.2 g/dl (12.0-16.0); MEAN CORPUSCULAR HGB CONC 32.6 % (33.0-36.5); MEAN PLATELET VOLUME 10.4 FL (7.4-10.4); PLATELET COUNT 132 X10'3 (140-440); RED BLOOD COUNT 2.72 X10'6 (4.20-5.60); RED CELL DISTRIBUTION WIDTH 15.5 % (11.5-14.5); WHITE BLOOD COUNT 7.9 X10'3 (4.5-11.0)
[2018-07-15] MEDS ORDERED: lisinopril 10 MG tablet PO ONE (15:25)
--- NOTE | 2018-07-15 15:28 | NUR ---
Pt's B/P is up into the 170s. I called Dr. Sorensen who instructed me to call Pako MACDONALD. I called Pako MACDONALD and let her know what was going on. Pako MACDONALD stated she would look the pt. up and then put in orders.
[2018-07-15 17:07] LABS: HEMATOCRIT 25.5 % (35.0-45.0); HEMOGLOBIN 8.2 g/dl (12.0-16.0); MEAN CORPUSCULAR HEMOGLOBIN 29.8 PG (27.0-31.0); MEAN CORPUSCULAR HGB CONC 32.2 % (33.0-36.5); MEAN CORPUSCULAR VOLUME 92.5 FL (78-98); MEAN PLATELET VOLUME 10.3 FL (7.4-10.4); PLATELET COUNT 145 X10'3 (140-440); RED BLOOD COUNT 2.75 X10'6 (4.20-5.60); RED CELL DISTRIBUTION WIDTH 15.6 % (11.5-14.5); WHITE BLOOD COUNT 9.3 X10'3 (4.5-11.0)
--- NOTE | 2018-07-15 18:20 | NUR ---
Problems reprioritized. Patient report given, questions answered & plan of care reviewed with SAJI RN.
--- NOTE | 2018-07-15 18:35 | NUR ---
I have received report and assumed care of pt, pt resting in bed assessment complete, abdominal incision dressing is bloody pt refuses dressing change to the abdomen but does allow the dressing change to the rt leg, josefa in place distal pulses by Doppler skin is warm, retail client solutions analyst in place for pain control.
[2018-07-15] MEDS ORDERED: hydrALAZINE 20mg/ml inj. IV PRN (22:25)
[2018-07-16] VITALS (24 sets, daily range): BP systolic 85–182; BP diastolic 59–115
[2018-07-16] MEDS: ipratropium/albuterol 3ml nebule NEB SCH ×4 (02:00→20:05)
[2018-07-16] MEDS: HYDROmorphone/NS 1 mg/ml CADD 50 ML IV SCH (03:29)
--- NOTE | 2018-07-16 06:00 | NUR ---
Patient in room CICU 2011. I have received report from SAJI RN and had the opportunity to ask questions and assume patient care.
[2018-07-16] MEDS: normal saline 1000ml 1,000 ML IV SCH (06:21)
[2018-07-16] MEDS: apixaban 5mg tablet PO SCH ×2 (07:33→20:35)
[2018-07-16] MEDS: aspirin 81mg tablet.DR PO SCH (07:33)
[2018-07-16] MEDS: lisinopril 10 MG tablet PO SCH ×2 (07:33→20:36)
[2018-07-16] MEDS: LIDOcaine 5% patch TP SCH (07:33)
[2018-07-16] MEDS: metoprolol tartrate 25mg tablet PO SCH ×2 (07:33→20:35)
[2018-07-16] MEDS: clopidogrel 75mg tablet PO SCH (07:34)
[2018-07-16] MEDS: lactobacillus rhamnosus 10,000 MMU CELLS/CAPSULE PO SCH ×2 (07:34→20:35)
[2018-07-16] MEDS: traMADol 50MG tablet PO PRN (07:34)
[2018-07-16 11:20] LABS: ALBUMIN 2.3 G/DL (3.4-5.0); ANION GAP 8 (8-16); BLOOD UREA NITROGEN 11 MG/DL (7-18); BUN/CREATININE RATIO 12.6 (6.6-38.0); CHLORIDE 108 MMOL/L (99-107); CREATININE 0.87 MG/DL (0.40-0.90); GLUCOSE 108 MG/DL (70-104); POTASSIUM 4.7 MMOL/L (3.5-5.1); SODIUM 141 MMOL/L (135-145); TOTAL CARBON DIOXIDE 25.4 MMOL/L (24-32); eGFR 64 ML/MIN
[2018-07-16] MEDS: simethicone 80mg chew tab PO SCH ×2 (12:39→20:35)
--- NOTE | 2018-07-16 14:51 | NUR ---
Reassessment: Pt seen by TRES for written/verbal high protein ed s/p fem-pop.RD contact information provided and pt agrees to cottage cheese w/ fruit for breakfasts and maribel ALEXANDER; TRES d/w dietary. PO 50-75% avg heart healthy meals good given age and size. Colostomy BM documented 07/15 but only 200ml documented last on 07/11. Will continue to monitor for additional bowel care needs. Recommend: 1. continue heart healthy diet 2. tamazight yogurt BIDLD; cottage cheese w/ fruit at breakfasts 3. wt per rx Addendum: 07/16/18 at [address] Amended: Links added.
--- NOTE | 2018-07-16 18:30 | NUR ---
Patient in room CICU 2011. I have received report from MARIA Cardona and had the opportunity to ask questions and assume patient care.
[2018-07-16] MEDS: temazepam 15mg capsule PO PRN (20:41)
[2018-07-17] VITALS (17 sets, daily range): BP systolic 124–198; BP diastolic 61–107
--- NOTE | 2018-07-17 01:43 | NUR ---
Patient refusing bed bath this evening, however was able to do a quick linen change and cartagena care with BARD cartagena wipes.
[2018-07-17] MEDS: ipratropium/albuterol 3ml nebule NEB SCH ×3 (03:00→20:59)
[2018-07-17 06:03] LABS: BASOPHILS # (AUTO) 0.1 X10'3 (0-0.2); EOSINOPHILS # (AUTO) 0.2 X10'3 (0-0.9); EOSINOPHILS % (AUTO) 3.5 % (0-6); HEMATOCRIT 24.1 % (35.0-45.0); HEMOGLOBIN 7.8 g/dl (12.0-16.0); LYMPHOCYTES % (AUTO) 15.3 % (21-51); MEAN CORPUSCULAR HGB CONC 32.1 % (33.0-36.5); MEAN CORPUSCULAR VOLUME 93.3 FL (78-98); MEAN PLATELET VOLUME 9.8 FL (7.4-10.4); MONOCYTES # (AUTO) 0.6 X10'3 (0-0.9); MONOCYTES % (AUTO) 8.6 % (2-12); NEUTROPHILS # (AUTO) 4.8 X10'3 (1.8-7.7); NEUTROPHILS % (AUTO) 71.6 % (42-75); PLATELET COUNT 191 X10'3 (140-440); RED BLOOD COUNT 2.59 X10'6 (4.20-5.60); RED CELL DISTRIBUTION WIDTH 15.8 % (11.5-14.5); WHITE BLOOD COUNT 6.7 X10'3 (4.5-11.0)
[2018-07-17 06:13] LABS: ALBUMIN 2.2 G/DL (3.4-5.0); ANION GAP 9 (8-16); BLOOD UREA NITROGEN 12 MG/DL (7-18); BUN/CREATININE RATIO 14.5 (6.6-38.0); CHLORIDE 109 MMOL/L (99-107); CREATININE 0.83 MG/DL (0.40-0.90); GLUCOSE 85 MG/DL (70-104); POTASSIUM 4.2 MMOL/L (3.5-5.1); SODIUM 142 MMOL/L (135-145); TOTAL CARBON DIOXIDE 24.1 MMOL/L (24-32); eGFR 67 ML/MIN
--- NOTE | 2018-07-17 06:45 | NUR ---
Problems reprioritized. Patient report given, questions answered & plan of care reviewed with jennifer Austin.
[2018-07-17] MEDS: HYDROmorphone/NS 1 mg/ml CADD 50 ML IV SCH ×3 (07:28→12:25)
[2018-07-17] MEDS: apixaban 5mg tablet PO SCH ×2 (07:43→20:46)
[2018-07-17] MEDS: lisinopril 10 MG tablet PO SCH (07:43)
[2018-07-17] MEDS: simethicone 80mg chew tab PO SCH ×3 (07:43→20:47)
[2018-07-17] MEDS: lactobacillus rhamnosus 10,000 MMU CELLS/CAPSULE PO SCH ×2 (07:43→20:45)
[2018-07-17] MEDS: metoprolol tartrate 25mg tablet PO SCH ×2 (07:44→20:00)
[2018-07-17] MEDS: aspirin 81mg tablet.DR PO SCH (07:44)
[2018-07-17] MEDS: clopidogrel 75mg tablet PO SCH (07:44)
[2018-07-17] MEDS: LIDOcaine 5% patch TP SCH (07:44)
--- NOTE | 2018-07-17 09:19 | NUR ---
Per Dr Diaz, it is okay to leave cartagena in for another day.
[2018-07-17] MEDS: methylnaltrexone br 12mg/0.6ml inj***SubQ only SQ SCH (09:20)
--- NOTE | 2018-07-17 10:00 | NUR ---
Patient refused Relistor shot at this time, she asked to start with milk of magnesia for now.
--- NOTE | 2018-07-17 13:10 | NUR ---
Problems reprioritized. Patient report given, questions answered & plan of care reviewed with Betina Venegas RN.
--- NOTE | 2018-07-17 13:20 | NUR ---
Patient transferred to Surgical room 349 and transferred to bed via slider board. Vital signs stable. outdoor pursuits instructor at bedside. All belongings sent with the patient.
--- NOTE | 2018-07-17 13:30 | NUR ---
Pt. arrived to 349 B, pt. alert, oriented, in no apparent distress with VSS. BLL call light in reach. Will continue to monitor pt.
--- NOTE | 2018-07-17 18:30 | NUR ---
Patient in room [facility] 349. I have received report from MARIA BRITTON and had the opportunity to ask questions and assume patient care. Addendum: 07/18/18 at 0335 by Estephania Valentine RN Amended: Links added.
--- NOTE | 2018-07-17 18:34 | NUR ---
Problems reprioritized. Patient report given, questions answered & plan of care reviewed with MARIA Ruby.
[2018-07-17] MEDS: HYDROcodone/acetaminophen 10/325mg tab PO PRN (20:46)
[2018-07-17] MEDS: traMADol 50MG tablet PO PRN (23:22)
[2018-07-18] VITALS: BP 140/88
[2018-07-18] MEDS: HYDROcodone/acetaminophen 10/325mg tab PO PRN (02:40)
[2018-07-18] MEDS: ipratropium/albuterol 3ml nebule NEB SCH ×4 (02:58→21:19)
[2018-07-18 05:32] LABS: ALBUMIN 2.4 G/DL (3.4-5.0); ANION GAP 10 (8-16); BLOOD UREA NITROGEN 17 MG/DL (7-18); BUN/CREATININE RATIO 16.8 (6.6-38.0); CALCIUM 8.4 MG/DL (8.5-10.1); CHLORIDE 108 MMOL/L (99-107); CREATININE 1.01 MG/DL (0.40-0.90); GLUCOSE 144 MG/DL (70-104); POTASSIUM 3.6 MMOL/L (3.5-5.1); SODIUM 145 MMOL/L (135-145); TOTAL CARBON DIOXIDE 27.2 MMOL/L (24-32); eGFR 54 ML/MIN
--- NOTE | 2018-07-18 06:21 | NUR ---
Problems reprioritized. Patient report given, questions answered & plan of care reviewed with MARIA BRITTON. Addendum: 07/18/18 at 0621 by Estephania Valentine RN Amended: Links added.
--- NOTE | 2018-07-18 06:34 | NUR ---
Patient in room [facility]JU 349. I have received report from MARIA Ruby and had the opportunity to ask questions and assume patient care.
[2018-07-18] MEDS: aspirin 81mg tablet.DR PO SCH (07:06)
[2018-07-18] MEDS: lactobacillus rhamnosus 10,000 MMU CELLS/CAPSULE PO SCH ×2 (07:06→20:21)
[2018-07-18] MEDS: apixaban 5mg tablet PO SCH ×2 (07:07→20:21)
[2018-07-18] MEDS: metoprolol tartrate 25mg tablet PO SCH ×2 (07:07→20:22)
[2018-07-18] MEDS: simethicone 80mg chew tab PO SCH ×3 (07:08→20:21)
[2018-07-18] MEDS: clopidogrel 75mg tablet PO SCH (07:08)
[2018-07-18] MEDS: LIDOcaine 5% patch TP SCH (07:09)
[2018-07-18] MEDS: ondansetron/PF 4mg/2ml inj IV PRN ×2 (07:09→20:31)
[2018-07-18] MEDS: lisinopril 10 MG tablet PO SCH (07:09)
[2018-07-18 08:00] VITALS: BP 164/118
[2018-07-18 12:00] VITALS: BP 170/113
[2018-07-18] MEDS ORDERED: digoxin 250mcg/ml 2ml ampule IV ONE (12:10)
[2018-07-18] MEDS ORDERED: NORMAL SALINE IV ONE (12:45)
[2018-07-18] MEDS ORDERED: METOPROLOL TARTRATE IV ONE (12:45)
[2018-07-18] MEDS ORDERED: normal saline 1000ml 1,000 ML IV SCH (13:05)
[2018-07-18] MEDS ORDERED: iohexol 300mg/ml 100ml inj. ONE (14:58)
[2018-07-18] MEDS: normal saline 1000ml 1,000 ML IV SCH ×2 (15:25→20:40)
--- NOTE | 2018-07-18 15:38 | NUR ---
Patient in room [facility] 349. I have received report from Sherry SIFUENTES and had the opportunity to ask questions and assume patient care.
--- NOTE | 2018-07-18 15:39 | NUR ---
Problems reprioritized. Patient report given, questions answered & plan of care reviewed with MARIA Interiano. Pt will be transferred to PCU. Pt. alert, oriented and in no apparent distress at this time. All belongings transferred with pt.
[2018-07-18] MEDS ORDERED: diltiazem 5mg/ml 5ml inj. IV PRN (17:45)
[2018-07-18 18:00] VITALS: BP 146/107
--- NOTE | 2018-07-18 18:16 | NUR ---
Problems reprioritized. Patient report given, questions answered & plan of care reviewed with Riaz SIFUENTES.
--- NOTE | 2018-07-18 18:39 | NUR ---
Patient in room PCU 3028. I have received report from Jaydon SIFUENTES and had the opportunity to ask questions and assume patient care.
[2018-07-18] MEDS: temazepam 15mg capsule PO PRN (20:31)
[2018-07-18 22:00] VITALS: BP 150/104
[2018-07-19] VITALS (14 sets, daily range): BP systolic 104–173; BP diastolic 73–109
--- NOTE | 2018-07-19 02:45 | NUR ---
Rust colored with coffee ground output noted from NGT. Morning labs were collected and waiting to be resulted. PT is resting with no s/s of distress noted at this time. VSS. Will continue to monitor closely. Addendum: 07/20/18 at 0415 by Anant Cameron RN Entered incorrect date. Took place on 07/20 at 0245 not 07/19.
[2018-07-19] MEDS: ipratropium/albuterol 3ml nebule NEB SCH ×4 (03:19→20:05)
[2018-07-19 05:34] LABS: ALBUMIN 2.3 G/DL (3.4-5.0); ANION GAP 8 (8-16); BLOOD UREA NITROGEN 20 MG/DL (7-18); BUN/CREATININE RATIO 19.6 (6.6-38.0); CALCIUM 8.4 MG/DL (8.5-10.1); CHLORIDE 111 MMOL/L (99-107); CREATININE 1.02 MG/DL (0.40-0.90); GLUCOSE 126 MG/DL (70-104); POTASSIUM 3.9 MMOL/L (3.5-5.1); SODIUM 149 MMOL/L (135-145); TOTAL CARBON DIOXIDE 29.6 MMOL/L (24-32); eGFR 53 ML/MIN
--- NOTE | 2018-07-19 06:14 | NUR ---
Problems reprioritized. Patient report given, questions answered & plan of care reviewed with Jaydon SIFUENTES.
[2018-07-19] MEDS: normal saline 1000ml 1,000 ML IV SCH (06:53)
[2018-07-19] MEDS: methylnaltrexone br 12mg/0.6ml inj***SubQ only SQ SCH (08:01)
[2018-07-19] MEDS: LIDOcaine 5% patch TP SCH (08:01)
[2018-07-19] MEDS: aspirin 81mg tablet.DR PO SCH (08:02)
[2018-07-19] MEDS: lisinopril 10 MG tablet PO SCH (08:02)
[2018-07-19] MEDS: apixaban 5mg tablet PO SCH ×2 (08:02→21:06)
[2018-07-19] MEDS: clopidogrel 75mg tablet PO SCH (08:03)
[2018-07-19] MEDS: simethicone 80mg chew tab PO SCH ×3 (08:03→15:18)
[2018-07-19] MEDS: lactobacillus rhamnosus 10,000 MMU CELLS/CAPSULE PO SCH ×2 (08:03→19:28)
[2018-07-19] MEDS: metoprolol tartrate 25mg tablet PO SCH ×2 (08:07→19:29)
[2018-07-19] MEDS ORDERED: dextrose 5%-water 1,000 ML IV SCH (08:50)
--- NOTE | 2018-07-19 11:51 | NUR ---
PT TO HAVE ABDOMEN AND PELVIC CT SCAN WITH SHORT STUDY CONTRAST
[2018-07-19] MEDS: diatr meglu/diatrizoate 30ml oral sol.-(3 dose) bottle NG SCH ×3 (12:00→17:18)
[2018-07-19 12:06] LABS: BASOPHILS % (AUTO) 0 % (0-1); EOSINOPHILS % (AUTO) 0 % (0-6); HEMATOCRIT 24.4 % (35.0-45.0); HEMOGLOBIN 7.6 g/dl (12.0-16.0); LYMPHOCYTES # (AUTO) 0.8 X10'3 (1.1-4.8); LYMPHOCYTES % (AUTO) 5.1 % (21-51); MEAN CORPUSCULAR HEMOGLOBIN 29.5 PG (27.0-31.0); MEAN CORPUSCULAR HGB CONC 31.3 % (33.0-36.5); MEAN CORPUSCULAR VOLUME 94.3 FL (78-98); MEAN PLATELET VOLUME 9.5 FL (7.4-10.4); MONOCYTES # (AUTO) 0.9 X10'3 (0-0.9); NEUTROPHILS # (AUTO) 13.7 X10'3 (1.8-7.7); NEUTROPHILS % (AUTO) 88.9 % (42-75); PLATELET COUNT 320 X10'3 (140-440); RED BLOOD COUNT 2.59 X10'6 (4.20-5.60); RED CELL DISTRIBUTION WIDTH 16.5 % (11.5-14.5); WHITE BLOOD COUNT 15.4 X10'3 (4.5-11.0)
[2018-07-19 12:29] LABS: NUCLEATED RED BLOOD CELLS 1 /100WBC (0-0); TOTAL CELLS COUNTED 200
[2018-07-19 12:35] LABS: PLATELET ESTIMATE NORMAL
[2018-07-19 12:36] LABS: POLYCHROMASIA 2+
[2018-07-19 12:38] LABS: ANISOCYTOSIS 1+
[2018-07-19 15:50] LABS: ABG BASE EXCESS 0.9 mmol/L (-2.0-3.0); ABG HCO3 26.9 mmol/L (22.0-26.0); ABG OXYGEN SATURATION 93.6 % (95-98); ABG PCO2 (T) 50.1 mmHg (32.0-45.0); ABG PH (T) 7.347 (7.350-7.450); ABG PO2 (T) 79.3 mmHg (83-108); ALLEN'S TEST Positive; FCOHb 0.1 % (0.5-1.5); FLOW 15 L/min; FMetHb 0.3 % (0.3-1.12); FO2Hb 93.2 % (94-100); TOTAL HEMOGLOBIN 8.1 G/dl (12.0-16.0)
--- NOTE | 2018-07-19 16:04 | NUR ---
RN CAME IN TO DO HOURLY ROUNDING AND GIVE GASTROVIEW PREP. PT LETHARGIC AND UNABLE TO STAY AWAKE. HANDS AND FEET COLD, DOPPLER PULSES WEAKER, UNABLE TO GET DOPPLER PULSE ON LEFT PEDALIS PULSE. BP 104/75, O2 890 Addendum: 07/19/18 at 1609 by Jaydon Jean RN 89% 4L NC, HR 50'S BUT CHECKED ON TELE 90'S. INFORMED WEB APPLICATION DEVELOPER KATHI, RAPID RESPONSE CALLED. AND DR. LUNA INFORMED. LABS, XRAY ORDERED.
--- NOTE | 2018-07-19 16:20 | NUR ---
PT STARTING TO ANSWER WITH HER HANDS AND OPENING HER EYES, STARTING TO BE MORE ALERT. lABS DRAWN AND XRAY DONE.
--- NOTE | 2018-07-19 16:35 | NUR ---
Problems reprioritized. Patient report given, questions answered & plan of care reviewed with KIMO SIFUENTES.
--- NOTE | 2018-07-19 16:39 | NUR ---
DR. BAJWA CALLED AND INFORMED OF PT BEING TRANSFERRED TO CICU. RN INFORMED THAT PEDAL PULSE ON LEFT FOOT IS NO LONGER FOUND ON DOPPLER PULSE. EXTREMITIES ALL ARE COLD.
--- NOTE | 2018-07-19 17:00 | NUR ---
Arrived from PCU on NRB at 100%, lethargic and c/o abd discomfort
--- NOTE | 2018-07-19 17:12 | NUR ---
[facility] TO [facility] AT 1700 ON 15L O2 NONREBREATHER MASK, TELE MONITOR ON. VSS 104/73, 96% O2, HR 101 ST. PT RESPONDING TO VERBALI STIMULI. BELONGINGS WITH PT. NG TUBE SXN OFF, WOUND VAC INTACT, PIV WITH D5 WATER TURNED OFF FOR TRANSPORT. PT TRANSPORTED IN STABLE CONDITION REQUIRING A HIGHER LEVEL OF CARE. RN INFORMED DR. LUNA OF LACTIC ACID RESULTS WELL RECEIVING MARIA MALIN. ABG RESULTS SENT WITH PT. PT ARRIVED TO [facility] IN STABLE CONDITION.
--- NOTE | 2018-07-19 17:30 | NUR ---
To CAT scan
--- NOTE | 2018-07-19 18:15 | NUR ---
Problems reprioritized. Patient report given, questions answered & plan of care reviewed with oncoming shift.
--- NOTE | 2018-07-19 18:20 | NUR ---
Patient in room CICU 2008. I have received report from Arcelia SIFUENTES, and had the opportunity to ask questions and assume patient care.
--- NOTE | 2018-07-19 19:30 | NUR ---
PT is resting with no s/s of distress noted at this time. VSS. PT is on a non rebreather mask with O2 at 15L, tolerating well O2 sat >95%. Drsg to RT low ABD is CDI, Prevena to RT groin is CDI and running @ 125mmHg, Drsg to RT medial thigh/calf is CDI. Bed is locked and low. Call light is within reach. Will continue to monitor.
[2018-07-19] MEDS ORDERED: vancomycin/NS 1 GM ADD-VANTAGE 250 ML IV SCH (20:00)
--- NOTE | 2018-07-19 20:15 | NUR ---
PT has bilat Doppler post tibial and dorsalis pedis pulses, both lower extremities are cool to touch. Pulses marked. Will continue to monitor.
[2018-07-19 20:49] LABS: MAGNESIUM 2.3 MG/DL (1.5-2.4)
[2018-07-19] MEDS: vancomycin/NS 1 GM ADD-VANTAGE 250 ML IV SCH (21:06)
[2018-07-19] MEDS: dextrose 5%-1/2 normal saline 1,000 ML IV SCH (21:07)
[2018-07-19 21:35] LABS: ABG BASE EXCESS 6.1 mmol/L (-2.0-3.0); ABG HCO3 30.8 mmol/L (22.0-26.0); ABG OXYGEN SATURATION 92.8 % (95-98); ABG PH (T) 7.451 (7.350-7.450); ABG PO2 (T) 67.4 mmHg (83-108); ALLEN'S TEST Positive; FCOHb 0.1 % (0.5-1.5); FMetHb 0.3 % (0.3-1.12); FO2Hb 92.4 % (94-100); MINUTE VOLUME 8 L/min; PATIENT TEMPERATURE 36.6; RESPIRATORY RATE 22 b/min; RESPIRATORY RATE (OBSERVED) 24 b/min; TIDAL VOLUME 359 mL
--- NOTE | 2018-07-19 23:00 | NUR ---
Mendoza cath placed using sterile technique, in order to accurately monitor I&O. PT tolerated well.
[2018-07-20] VITALS (35 sets, daily range): BP systolic 114–186; BP diastolic 48–116
[2018-07-20] MEDS: simethicone 80mg chew tab PO SCH ×4 (00:18→22:05)
[2018-07-20] MEDS: piperacillin/tazo 3.375gm/50ml 50 ML IV SCH ×3 (00:18→15:35)
[2018-07-20] MEDS ORDERED: furosemide 20 MG/2 ML vial IV ONE (01:40)
[2018-07-20] MEDS: ipratropium/albuterol 3ml nebule NEB SCH ×4 (02:09→21:21)
[2018-07-20 03:26] LABS: BASOPHILS % (AUTO) 0.1 % (0-1); EOSINOPHILS % (AUTO) 0 % (0-6); LYMPHOCYTES % (AUTO) 7.7 % (21-51); MEAN CORPUSCULAR HEMOGLOBIN 29.6 PG (27.0-31.0); MEAN CORPUSCULAR HGB CONC 31.8 % (33.0-36.5); MEAN CORPUSCULAR VOLUME 93.1 FL (78-98); MEAN PLATELET VOLUME 9.9 FL (7.4-10.4); MONOCYTES # (AUTO) 1.1 X10'3 (0-0.9); MONOCYTES % (AUTO) 8.1 % (2-12); NEUTROPHILS # (AUTO) 11.2 X10'3 (1.8-7.7); NEUTROPHILS % (AUTO) 84.1 % (42-75); RED BLOOD COUNT 2.33 X10'6 (4.20-5.60); RED CELL DISTRIBUTION WIDTH 16.6 % (11.5-14.5); WHITE BLOOD COUNT 13.3 X10'3 (4.5-11.0)
[2018-07-20 03:27] LABS: PARTIAL THROMBOPLASTIN TIME 33 SECONDS (22-32)
[2018-07-20 03:42] LABS: HEMATOCRIT 21.7 % (35.0-45.0); HEMOGLOBIN 6.9 g/dl (12.0-16.0)
[2018-07-20 03:48] LABS: ALANINE AMINOTRANSFERASE 38 U/L (12-78); ALBUMIN 2.1 G/DL (3.4-5.0); ALBUMIN/GLOBULIN RATIO 0.7 (1.1-1.5); ALKALINE PHOSPHATASE 79 IU/L (46-116); ANION GAP 8 (8-16); ASPARTATE AMINO TRANSFERASE 68 U/L (10-37); BILIRUBIN,TOTAL 0.7 MG/DL (0.1-1.0); BLOOD UREA NITROGEN 26 MG/DL (7-18); BUN/CREATININE RATIO 24.1 (6.6-38.0); CALCIUM 7.6 MG/DL (8.5-10.1); CHLORIDE 105 MMOL/L (99-107); CREATININE 1.08 MG/DL (0.40-0.90); GLUCOSE 151 MG/DL (70-104); POTASSIUM 3.3 MMOL/L (3.5-5.1); SODIUM 145 MMOL/L (135-145); TOTAL CARBON DIOXIDE 31.7 MMOL/L (24-32); TOTAL PROTEIN 5.1 G/DL (6.4-8.2); eGFR 50 ML/MIN
[2018-07-20 03:51] LABS: PLATELET COUNT 292 X10'3 (140-440)
--- NOTE | 2018-07-20 04:09 | NUR ---
Coffee ground drainage noted in the output from NGT, check PT cbc and received critical Hgb of 6.9 and Hct of 21.7. MANAGER AGRICULTURE juan informed of NGT output as well as drop in H&H. Orders received to draw type and screen ans transfuse 1unit of PRBC's as well as new order for 40mh Protonix IVP BID. Will continue to monitor.
[2018-07-20] MEDS ORDERED: Potassium Cl inj 40 MEQ in normal saline 500ml IV soln 480 ML IV ONE (04:40)
--- NOTE | 2018-07-20 06:15 | NUR ---
Patient in room CICU 2007. I have received report from TESTING ANALYST and had the opportunity to ask questions and assume patient care.
--- NOTE | 2018-07-20 06:20 | NUR ---
Problems reprioritized. Patient report given, questions answered & plan of care reviewed with Arcelia SIFUENTES.
[2018-07-20] MEDS: dextrose 5%-1/2 normal saline 1,000 ML IV SCH ×2 (06:55→16:55)
[2018-07-20] MEDS: aspirin 81mg tablet.DR PO SCH (08:00)
[2018-07-20] MEDS: apixaban 5mg tablet PO SCH (08:00)
[2018-07-20] MEDS ORDERED: pantoprazole 40 MG vial IV SCH (08:00)
[2018-07-20] MEDS: furosemide 40mg/4ml inj IV SCH ×2 (08:11→22:04)
[2018-07-20] MEDS: LIDOcaine 5% patch TP SCH (08:12)
[2018-07-20] MEDS: lactobacillus rhamnosus 10,000 MMU CELLS/CAPSULE PO SCH ×2 (08:13→22:04)
[2018-07-20] MEDS: metoprolol tartrate 25mg tablet PO SCH ×2 (08:13→22:30)
[2018-07-20] MEDS: lisinopril 10 MG tablet PO SCH (08:13)
--- NOTE | 2018-07-20 09:00 | NUR ---
Dr Burrows called with results of vascular study, labs and patient condition, orders received.
[2018-07-20] MEDS: clopidogrel 75mg tablet PO SCH (11:46)
[2018-07-20 11:54] LABS: HEMATOCRIT 25.7 % (35.0-45.0); HEMOGLOBIN 8.3 g/dl (12.0-16.0); MEAN CORPUSCULAR HEMOGLOBIN 30.7 PG (27.0-31.0); MEAN CORPUSCULAR HGB CONC 32.3 % (33.0-36.5); MEAN CORPUSCULAR VOLUME 95.1 FL (78-98); MEAN PLATELET VOLUME 9.7 FL (7.4-10.4); PLATELET COUNT 263 X10'3 (140-440); RED BLOOD COUNT 2.71 X10'6 (4.20-5.60); RED CELL DISTRIBUTION WIDTH 15.9 % (11.5-14.5); WHITE BLOOD COUNT 12.7 X10'3 (4.5-11.0)
[2018-07-20 12:50] LABS: TROPONIN I 0.57 NG/ML (0.0-0.05)
[2018-07-20] MEDS ORDERED: iohexol 350 MG/ML 50ML vial IV ONE (13:46)
[2018-07-20] MEDS ORDERED: iohexol 350MG/ML 100ml bottle IV ONE (13:46)
[2018-07-20 14:38] LABS: C DIFF ANTIGEN SEE COMMENTS (NEGATIVE); C DIFF SPECIMEN=DIARRHEA? ACCEPTABLE; C DIFFICILE TOXINS A&B NEGATIVE (Neg)
--- NOTE | 2018-07-20 14:38 | NUR ---
Extended PIV inserted to the right upper arm using ultrasound. Sheila well Addendum: 07/20/18 at 1439 by Sharron Waite RN Amended: Links added.
[2018-07-20] MEDS: pantoprazole 40MG/NS 100ML BAG 100 ML IV SCH ×3 (14:57→22:01)
--- NOTE | 2018-07-20 15:00 | NUR ---
Angio with Dr Holguin here to place nisha. pigtail chest tubes with serous drainage. patient able to breath much better post procedure,now is on NC 3L instead of bipap at 60% FIO2
[2018-07-20] MEDS ORDERED: LIDOcaine 1%/PF 5ML 10 MG/ML VIAL ONE ×2 (15:31→15:56)
[2018-07-20 15:49] LABS: C DIFF TOXIN (LAMP) POSITIVE (NEG)
--- NOTE | 2018-07-20 16:00 | NUR ---
Dr Burrows here to talk with the patient about surgery. Consent signed
[2018-07-20 17:24] LABS: BODY FLUID PH (NON-PLEURAL) 7.5
[2018-07-20 17:38] LABS: AMYLASE,BODY FLUID 18 U/L; GLUCOSE,BODY FLUID 134 MG/DL; LDH,BODY FLUID 46 U/L; UREA NITROGEN, BODY FLUID 27 MG/DL
[2018-07-20] MEDS ORDERED: ceFAZolin 1000mg inj ONE (17:40)
[2018-07-20] MEDS ORDERED: iohexol 300 MG/1 ML 50ml polymer ONE (17:41)
[2018-07-20 17:49] LABS: ALBUMIN,BODY FLUID < 0.6 G/DL
[2018-07-20 17:58] LABS: TOTAL PROTEIN,BODY FLUID < 2.0 G/DL
--- NOTE | 2018-07-20 18:00 | NUR ---
To OR on monitor and port O2.
[2018-07-20] MEDS ORDERED: fentaNYL/PF 50MCG/1 ML 2ML syringe ONE ×2 (18:11→20:29)
[2018-07-20] MEDS ORDERED: midazolam 2 mg/2 ml injection ONE (18:11)
[2018-07-20] MEDS ORDERED: rocuronium 10mg/ml inj IV ONE (18:11)
--- NOTE | 2018-07-20 18:15 | NUR ---
Problems reprioritized. Patient report given, questions answered & plan of care reviewed with oncoming shift.
--- NOTE | 2018-07-20 18:16 | NUR ---
Patient in room CICU 2008. I have received report from chuck rodriguez and had the opportunity to ask questions and assume patient care.
[2018-07-20] MEDS ORDERED: sevoflurane 250ml liquid IH ONE (18:26)
[2018-07-20] MEDS ORDERED: propofol inj 20 ML IV ONE (19:20)
[2018-07-20] MEDS: heparin 10,000 units/1 ML INJ ONE ×2 (20:00→20:36)
[2018-07-20] MEDS ORDERED: ePHEDrine 50MG/ML INJ. ONE (20:07)
[2018-07-20] MEDS ORDERED: NORepinephrine 1 mg/ml inj IV ONE (20:09)
[2018-07-20] MEDS ORDERED: heparin 10,000 units/1 ML INJ ONE (20:13)
[2018-07-20] MEDS ORDERED: heparin 1,000unit/ml 10ml vial 10 ML ONE (20:20)
[2018-07-20] MEDS ORDERED: albumin (Human) 5% 250ml 250 ML IV ONE (20:30)
[2018-07-20] MEDS ORDERED: heparin 10,000 units/1 ML INJ IV SCH (21:25)
[2018-07-20] MEDS ORDERED: heparin 10,000 units/1 ML INJ IV ONE ×2 (21:25→22:20)
[2018-07-20] MEDS ORDERED: midazolam 100mg in NS 100ml 100 ML IV PRN (21:25)
[2018-07-20] MEDS ORDERED: FENTANYL-0.9 % NACL/PF 100 ML IV PRN (21:25)
--- NOTE | 2018-07-20 21:30 | NUR ---
pt returned from or. cxr ordered. rt pulled et tube back to 20 at the teeth. lung sounds are course. two posterior bilateral chest tubes present and hooked to suction.bare hugger in place for low temp. no air leak present. pt oozing from left chest tube site, dressing reinforced. bowel sounds present. abdomen soft and nontender. colostomy to LUQ. liquid foul smelling brown stool present. right hip surgical site oozing. groin is soft upon palpation. wound vac to right upper thigh. sanguinous drainage present. wound vac at 75mmhg. bilateral feet are cool to touch. cap refill is prolonged bilaterally. right foot is slightly purple. pedal pulse and posterior tibialis pulse present via doppler. left pedal and posterior tibialis pulse unable to doppler. md aware. heels, elbows, coccyx intact,, blanchable, free from breakdown. vital signs stable. no s/s of distress. will continue to monitor
[2018-07-20 21:36] LABS: ABG BASE EXCESS 4.6 mmol/L (-2.0-3.0); ABG HCO3 28.8 mmol/L (22.0-26.0); ABG OXYGEN SATURATION 94.7 % (95-98); ABG PCO2 (T) 38.7 mmHg (32.0-45.0); ABG PH (T) 7.484 (7.350-7.450); ABG PO2 (T) 69.7 mmHg (83-108); FCOHb 0.3 % (0.5-1.5); FMetHb 0.2 % (0.3-1.12); FO2Hb 94.2 % (94-100); MINUTE VOLUME 6 L/min; PATIENT TEMPERATURE 35.7; PEEP 5 cm H2O; RESPIRATORY RATE 16 b/min; RESPIRATORY RATE (OBSERVED) 16 b/min; TIDAL VOLUME 350 mL; TOTAL HEMOGLOBIN 9.7 G/dl (12.0-16.0)
[2018-07-20 22:00] LABS: BASOPHILS % (AUTO) 0.1 % (0-1); EOSINOPHILS % (AUTO) 0.1 % (0-6); HEMATOCRIT 26.5 % (35.0-45.0); HEMOGLOBIN 8.7 g/dl (12.0-16.0); LYMPHOCYTES # (AUTO) 1.3 X10'3 (1.1-4.8); LYMPHOCYTES % (AUTO) 10.1 % (21-51); MEAN CORPUSCULAR HEMOGLOBIN 30.6 PG (27.0-31.0); MEAN CORPUSCULAR HGB CONC 32.9 % (33.0-36.5); MEAN CORPUSCULAR VOLUME 93.1 FL (78-98); MEAN PLATELET VOLUME 9.9 FL (7.4-10.4); MONOCYTES # (AUTO) 0.9 X10'3 (0-0.9); MONOCYTES % (AUTO) 6.8 % (2-12); NEUTROPHILS # (AUTO) 10.8 X10'3 (1.8-7.7); NEUTROPHILS % (AUTO) 82.9 % (42-75); PLATELET COUNT 229 X10'3 (140-440); RED BLOOD COUNT 2.84 X10'6 (4.20-5.60); RED CELL DISTRIBUTION WIDTH 15.5 % (11.5-14.5)
[2018-07-20 22:02] LABS: ALANINE AMINOTRANSFERASE 29 U/L (12-78); ALBUMIN 2.3 G/DL (3.4-5.0); ALBUMIN/GLOBULIN RATIO 0.9 (1.1-1.5); ALKALINE PHOSPHATASE 69 IU/L (46-116); ANION GAP 9 (8-16); ASPARTATE AMINO TRANSFERASE 37 U/L (10-37); BILIRUBIN,TOTAL 0.7 MG/DL (0.1-1.0); BLOOD UREA NITROGEN 23 MG/DL (7-18); CALCIUM 6.7 MG/DL (8.5-10.1); CHLORIDE 104 MMOL/L (99-107); CREATININE 1.15 MG/DL (0.40-0.90); GLUCOSE 167 MG/DL (70-104); SODIUM 144 MMOL/L (135-145); TOTAL CARBON DIOXIDE 30.8 MMOL/L (24-32); TOTAL PROTEIN 4.8 G/DL (6.4-8.2); eGFR 46 ML/MIN
[2018-07-20] MEDS: midazolam 100mg in NS 100ml 100 ML IV PRN (22:03)
[2018-07-20] MEDS: vancomycin/NS 1 GM ADD-VANTAGE 250 ML IV SCH (22:04)
[2018-07-20] MEDS: vancomycin 250MG/10ML UD oral solution 10ML BOTTLE PO SCH (22:04)
[2018-07-20 22:08] LABS: POTASSIUM 2.9 MMOL/L (3.5-5.1)
[2018-07-20] MEDS ORDERED: potassium Cl 20 mEq SR tablet PO PRN ×2 (22:15)
[2018-07-20] MEDS ORDERED: potassium Cl 40MEQ/250ML bag 250 ML IV PRN (22:15)
[2018-07-20] MEDS ORDERED: heparin 10,000 units/1 ML INJ IV PRN (22:20)
[2018-07-20] MEDS: potassium Cl 40MEQ/250ML bag 250 ML IV PRN (23:00)
[2018-07-20] MEDS: K and/or MAG REPLACEMENT MC SCH (23:08)
[2018-07-20 23:20] LABS: NUCLEATED RED BLOOD CELLS 2 /100WBC (0-0); TOTAL CELLS COUNTED 100
[2018-07-20 23:21] LABS: ANISOCYTOSIS 1+; PLATELET ESTIMATE DECREASED
[2018-07-20 23:22] LABS: GIANT PLATELET FEW; LARGE PLATELETS FEW; POLYCHROMASIA 1+
[2018-07-21] VITALS (34 sets, daily range): BP systolic 94–171; BP diastolic 52–91
[2018-07-21] MEDS: piperacillin/tazo 3.375gm/50ml 50 ML IV SCH ×3 (00:30→16:06)
--- NOTE | 2018-07-21 00:30 | NUR ---
ptt drawn at 2330. ptt did not result until 0030. ptt 77. per md vegas keep ptt between 80-100. heparin started per order
[2018-07-21] MEDS: heparin 25,000 UNIT/250ml bag 250 ML IV SCH ×2 (00:53→22:47)
[2018-07-21] MEDS: potassium Cl 40MEQ/250ML bag 250 ML IV PRN (00:58)
--- NOTE | 2018-07-21 02:15 | NUR ---
pt toes look more purple then when pt returned from OR. posterior tibial pulse present via doppler. pedal pulse absent via doppler. right leg and hip are firm upon palpation. new bruise present to right hip, site marked. pt still oozing from left chest tube, right surgical site, and right leg skin tear. pt bled through a pack of gauze in two hours. notified
[2018-07-21 02:23] LABS: BASOPHILS % (AUTO) 0.1 % (0-1); EOSINOPHILS % (AUTO) 0.1 % (0-6); LYMPHOCYTES # (AUTO) 1.2 X10'3 (1.1-4.8); LYMPHOCYTES % (AUTO) 8.8 % (21-51); MEAN CORPUSCULAR HEMOGLOBIN 30.9 PG (27.0-31.0); MEAN CORPUSCULAR HGB CONC 33.2 % (33.0-36.5); MEAN CORPUSCULAR VOLUME 93.2 FL (78-98); MEAN PLATELET VOLUME 10.1 FL (7.4-10.4); MONOCYTES # (AUTO) 0.9 X10'3 (0-0.9); MONOCYTES % (AUTO) 6.7 % (2-12); NEUTROPHILS # (AUTO) 11.1 X10'3 (1.8-7.7); NEUTROPHILS % (AUTO) 84.3 % (42-75); PLATELET COUNT 205 X10'3 (140-440); RED BLOOD COUNT 2.15 X10'6 (4.20-5.60); RED CELL DISTRIBUTION WIDTH 15.8 % (11.5-14.5); WHITE BLOOD COUNT 13.1 X10'3 (4.5-11.0)
[2018-07-21 02:29] LABS: ALANINE AMINOTRANSFERASE 22 U/L (12-78); ALBUMIN 1.8 G/DL (3.4-5.0); ALBUMIN/GLOBULIN RATIO 0.8 (1.1-1.5); ALKALINE PHOSPHATASE 57 IU/L (46-116); ANION GAP 4 (8-16); ASPARTATE AMINO TRANSFERASE 39 U/L (10-37); BILIRUBIN,TOTAL 0.7 MG/DL (0.1-1.0); BLOOD UREA NITROGEN 23 MG/DL (7-18); BUN/CREATININE RATIO 19.8 (6.6-38.0); CALCIUM 6.2 MG/DL (8.5-10.1); CHLORIDE 109 MMOL/L (99-107); CREATININE 1.16 MG/DL (0.40-0.90); GLUCOSE 124 MG/DL (70-104); MAGNESIUM 1.6 MG/DL (1.5-2.4); SODIUM 145 MMOL/L (135-145); TOTAL CARBON DIOXIDE 31.6 MMOL/L (24-32); eGFR 46 ML/MIN
[2018-07-21 02:30] LABS: HEMATOCRIT 20.1 % (35.0-45.0); HEMOGLOBIN 6.7 g/dl (12.0-16.0)
[2018-07-21] MEDS: pantoprazole 40MG/NS 100ML BAG 100 ML IV SCH ×5 (02:38→21:03)
[2018-07-21] MEDS: vancomycin 250MG/10ML UD oral solution 10ML BOTTLE PO SCH ×4 (02:38→21:02)
[2018-07-21 02:41] LABS: POTASSIUM 5.4 MMOL/L (3.5-5.1)
[2018-07-21] MEDS: dextrose 5%-1/2 normal saline 1,000 ML IV SCH ×3 (02:52→16:06)
[2018-07-21] MEDS: ipratropium/albuterol 3ml nebule NEB SCH ×2 (02:58→07:03)
[2018-07-21 03:15] LABS: ABG BASE EXCESS 6.2 mmol/L (-2.0-3.0); ABG HCO3 29.7 mmol/L (22.0-26.0); ABG OXYGEN SATURATION 97.6 % (95-98); ABG PCO2 (T) 39.3 mmHg (32.0-45.0); ABG PH (T) 7.499 (7.350-7.450); ABG PO2 (T) 119.5 mmHg (83-108); FCOHb 0.2 % (0.5-1.5); FMetHb 0.3 % (0.3-1.12); FO2Hb 97.1 % (94-100); MINUTE VOLUME 6 L/min; PATIENT TEMPERATURE 37.7; PEEP 8 cm H2O; RESPIRATORY RATE 16 b/min; RESPIRATORY RATE (OBSERVED) 16 b/min; TIDAL VOLUME 350 mL
--- NOTE | 2018-07-21 03:31 | NUR ---
0230 ptt hemolyzed x 2 attempts. 0330 ptt drawn and sent to lab
--- NOTE | 2018-07-21 04:21 | NUR ---
lab called. 0330 ptt unreadable because the result is so high. heparin turned off. hourly ptt continued. Addendum: 07/21/18 at 0430 by Linda Keys RN consulted with charge nurse. heparin turned down to 700 units instead of turned off
--- NOTE | 2018-07-21 04:25 | NUR ---
paged md vegas x3. no answer.
--- NOTE | 2018-07-21 05:33 | NUR ---
Heparin gtt restarted at 1000u/hr for PTT 78, Dr. Moore orders to keep ptt 80-100; following PTTs <80 but heparin just restarted; two hrs after heparin restarated, PTT>150, heparin turned down to 700u/hr; next PTT >150, heparin decreased to 500u/hr; orders to transfuse 1 unit of prbcs, pt w/o blood band, removed in OR; pt needing to have retype and cross, awaiting blood from blood bank.
[2018-07-21] MEDS: methylnaltrexone br 12mg/0.6ml inj***SubQ only SQ SCH (07:02)
[2018-07-21] MEDS: lactobacillus rhamnosus 10,000 MMU CELLS/CAPSULE PO SCH ×2 (07:04→21:01)
[2018-07-21] MEDS: simethicone 80mg chew tab PO SCH ×3 (07:04→21:00)
[2018-07-21] MEDS: lisinopril 10 MG tablet PO SCH (07:04)
[2018-07-21] MEDS: aspirin 81mg tablet.DR PO SCH (07:04)
[2018-07-21] MEDS: metoprolol tartrate 25mg tablet PO SCH ×2 (07:04→20:00)
[2018-07-21] MEDS: clopidogrel 75mg tablet PO SCH (07:04)
[2018-07-21] MEDS: vancomycin/NS 1 GM ADD-VANTAGE 250 ML IV SCH (07:05)
[2018-07-21] MEDS: K and/or MAG REPLACEMENT MC SCH (07:07)
[2018-07-21] MEDS: furosemide 40mg/4ml inj IV SCH ×2 (07:11→21:01)
--- NOTE | 2018-07-21 07:20 | NUR ---
lAST ptt WAS UNREADABLE PER LAB WHICH MEANS IT WAS BEYOND 153, TOOK OVER THIS PATIENTS CARE AT 630 AM AND WAS TOLD THAT BRUSETT HAD ALREADY BEEN PAGED MULTIPLE TIMES AND THAT WE HAVE NOT HEARD BACK FROM HIM AT THIS TIME. PTT DRAWN AGAIN AND BEING SENT TO THE LAB, HEPARIN DRIP AT 500 ON THE PUMP DUE TO NURSING STAFF TITRATING THE DRIP IN ORDER TO PROVIDE A SAFE DOSE FOR THIS PATIENT BECAUSE OF THE OUT OF RANGE PTT DRAWS. THE GOAL IS BETWEEN 80-100 PTT PER BRUSETT BUT, THERE ARE NO ORDERS OUTSIDE OF CONTACTING HIM TO KNOW WHAT TO DO NEXT IF THE RESULT IS OUT OF RANGE.
[2018-07-21] MEDS: LIDOcaine 5% patch TP SCH (08:00)
--- NOTE | 2018-07-21 08:39 | NUR ---
ptt came back at 93. brusetts goal is 80-100 so this is within range, heparin is at 500 currently, I will leave the rate alone since we are at goal.
--- NOTE | 2018-07-21 09:58 | NUR ---
spoke with dr. vegas about status of patient, told him that the PTT was too high to be read last night on assistant shift supervisor and that the RN and charge nurse decided to have the patients heparin running at 500 since at 1000 the reading was out of range. He said "that is fine". updated him on the current ptt which was 93 and that i was going to leave the heparin at 500 for now and he said "sounds good". He asked about the pulses on the legs and I told him that the pedals are only heard through doppler and that popliteal cannot be found bilaterally, he was ok with this finding also.
--- NOTE | 2018-07-21 10:10 | NUR ---
2nd unit of blood infusing per MD order for a hemoglobin of 6.7
--- NOTE | 2018-07-21 11:11 | NUR ---
paged dr vegas, I can no longer find pulses on the left posterior tibial with the doppler
--- NOTE | 2018-07-21 11:13 | NUR ---
right upper thigh looks more swollen and is tight, Dr. Burrows has been paged, awaiting response, charge nurse also aware of findings
--- NOTE | 2018-07-21 12:33 | NUR ---
Reassessment: Intubated s/p surgery. Has wound vac to right groin and leg and surgical wound. She is s/p thrombectomy right femoral artery on 07/20 and s/p right fempop on 07/12. 3+ RLE edema present. Weight is up since admission d/t fluids from edema. Patient has very high protein requirements in view of wound heal. Pt had previously been seen by RD for written/verbal high protein education for wound healing needs. RD contact information provided and food preferences obtained. At the time pt declined ONS. Prior to intubation PO 50-75% avg heart healthy meals. Colostomy stool output 475 ml 07/20. Will continue to monitor. Recommend: 1. continue heart healthy diet when extubated as medically indicated 2. continue [place] yogurt BIDLD; cottage cheese w/ fruit at breakfast when extubated and diet is advanced 3. monitor need for ONS, meet with patient to discuss options after extubated 4. wt per rx 5. If prolonged intubation consider tube feeding for increased protein needs and if TF recommend Vital AF at 75 ml/hr. Addendum: 07/21/18 at [address] Amended: Links added.
--- NOTE | 2018-07-21 12:47 | NUR ---
still have not heard a response from dr vegas
--- NOTE | 2018-07-21 13:47 | NUR ---
spoke with dr vegas about patients status, explained that the right thigh is much more swollen and tight, pulses cant be felt or dopplered in the left foot. markos would like an arterial doppler done and he said to go up to 600 on the heparin drip and redraw in an hour. Addendum: 07/22/18 at 0629 by Courtney Nur RN ultrasound not doppler per Markos
--- NOTE | 2018-07-21 14:41 | NUR ---
heparin drip at 600 per flora benson PTT and sent off to lab to assess if adjustment is needed
--- NOTE | 2018-07-21 14:48 | NUR ---
hospital laboratory technician at the bedside.
[2018-07-21 14:49] LABS: MEAN CORPUSCULAR HEMOGLOBIN 28.7 PG (27.0-31.0); MEAN CORPUSCULAR HGB CONC 33.3 % (33.0-36.5); MEAN PLATELET VOLUME 10.3 FL (7.4-10.4); PLATELET COUNT 155 X10'3 (140-440); RED BLOOD COUNT 3.49 X10'6 (4.20-5.60); RED CELL DISTRIBUTION WIDTH 19.6 % (11.5-14.5); WHITE BLOOD COUNT 20.6 X10'3 (4.5-11.0)
--- NOTE | 2018-07-21 16:41 | NUR ---
vascular study showed no flow to the left leg, Markos notifed, he contacted the son whom consented for additional surgery, Markos ordered vein mapping and CT of the pelvis to be done nabor. RT contacted.
--- NOTE | 2018-07-21 17:05 | NUR ---
unable to take patient for scan at this time due to staffing issues.
--- NOTE | 2018-07-21 17:06 | NUR ---
vascular study ordered for vein mapping and they have been paged
--- NOTE | 2018-07-21 18:04 | NUR ---
vein mapping complete, medical equipment technician stated "there is no usable vein" Contacted Markos and he is aware
[2018-07-21 18:13] LABS: ALBUMIN 1.6 G/DL (3.4-5.0); ANION GAP 10 (8-16); BLOOD UREA NITROGEN 19 MG/DL (7-18); BUN/CREATININE RATIO 14.7 (6.6-38.0); CHLORIDE 105 MMOL/L (99-107); CREATININE 1.29 MG/DL (0.40-0.90); GLUCOSE 206 MG/DL (70-104); POTASSIUM 3.3 MMOL/L (3.5-5.1); SODIUM 142 MMOL/L (135-145); TOTAL CARBON DIOXIDE 26.8 MMOL/L (24-32); eGFR 41 ML/MIN
[2018-07-21 18:19] LABS: CALCIUM 5.9 MG/DL (8.5-10.1)
[2018-07-21] MEDS ORDERED: calcium chloride 100 MG/1 ML inj IV ONE ×2 (18:21→18:25)
--- NOTE | 2018-07-21 18:30 | NUR ---
Problems reprioritized. Patient report given, questions answered & plan of care reviewed with Vivian SIFUENTES.
[2018-07-21] MEDS ORDERED: heparin 10,000 units/1 ML INJ ONE (19:04)
[2018-07-21] MEDS ORDERED: ceFAZolin 1000mg inj ONE (19:05)
[2018-07-21 19:11] LABS: MAGNESIUM 1.3 MG/DL (1.5-2.4)
[2018-07-21] MEDS ORDERED: iohexol 350 MG/ML 50ML vial IV ONE (19:24)
[2018-07-21] MEDS ORDERED: magnesium 4gm in 100ml NS 100 ML IV PRN (19:25)
[2018-07-21] MEDS ORDERED: magnesium 4gm in 100ml NS 100 ML IV ONE (19:25)
[2018-07-21] MEDS ORDERED: magnesium 2GM in 50ml NS 50 ML IV PRN (19:25)
--- NOTE | 2018-07-21 20:20 | NUR ---
1830:Patient in room CICU 2007. I have received report from Courtney SIFUENTES and had the opportunity to ask questions and assume patient care. 2020: Back from CT scan without incident. Dr. Burrows at bedside, updated pt's family on plan of care. Awaiting CT scan result.
[2018-07-21 20:45] LABS: ABG BASE EXCESS 4.4 mmol/L (-2.0-3.0); ABG OXYGEN SATURATION 98.8 % (95-98); ABG PCO2 (T) 37.3 mmHg (32.0-45.0); ABG PH (T) 7.493 (7.350-7.450); ABG PO2 (T) 282.3 mmHg (83-108); FCOHb 0.3 % (0.5-1.5); FMetHb 0.3 % (0.3-1.12); FO2Hb 98.2 % (94-100); MINUTE VOLUME 7 L/min; PATIENT TEMPERATURE 36.7; PEEP 8 cm H2O; RESPIRATORY RATE 16 b/min; RESPIRATORY RATE (OBSERVED) 19 b/min; TIDAL VOLUME 350 mL; TOTAL HEMOGLOBIN 8.4 G/dl (12.0-16.0)
[2018-07-21 20:49] LABS: BASOPHILS % (AUTO) 0.1 % (0-1); EOSINOPHILS % (AUTO) 0 % (0-6); HEMATOCRIT 22.4 % (35.0-45.0); HEMOGLOBIN 7.5 g/dl (12.0-16.0); LYMPHOCYTES % (AUTO) 5.3 % (21-51); MEAN CORPUSCULAR HGB CONC 33.6 % (33.0-36.5); MEAN CORPUSCULAR VOLUME 86.5 FL (78-98); MONOCYTES # (AUTO) 1.3 X10'3 (0-0.9); MONOCYTES % (AUTO) 7.2 % (2-12); NEUTROPHILS # (AUTO) 16.3 X10'3 (1.8-7.7); NEUTROPHILS % (AUTO) 87.4 % (42-75); PLATELET COUNT 120 X10'3 (140-440); RED BLOOD COUNT 2.59 X10'6 (4.20-5.60); RED CELL DISTRIBUTION WIDTH 19.7 % (11.5-14.5); WHITE BLOOD COUNT 18.6 X10'3 (4.5-11.0)
[2018-07-21 20:52] LABS: PLATELET COUNT 120 X10'3 (140-440)
[2018-07-21 20:55] LABS: ALANINE AMINOTRANSFERASE 26 U/L (12-78); ALBUMIN 1.3 G/DL (3.4-5.0); ALBUMIN/GLOBULIN RATIO 0.7 (1.1-1.5); ALKALINE PHOSPHATASE 49 IU/L (46-116); ANION GAP 9 (8-16); ASPARTATE AMINO TRANSFERASE 46 U/L (10-37); BILIRUBIN,TOTAL 0.6 MG/DL (0.1-1.0); BLOOD UREA NITROGEN 19 MG/DL (7-18); BUN/CREATININE RATIO 14.2 (6.6-38.0); CALCIUM 6.9 MG/DL (8.5-10.1); CHLORIDE 106 MMOL/L (99-107); CREATININE 1.34 MG/DL (0.40-0.90); GLUCOSE 139 MG/DL (70-104); MAGNESIUM 1.2 MG/DL (1.5-2.4); PHOSPHORUS 3.2 MG/DL (2.3-4.5); POTASSIUM 4.1 MMOL/L (3.5-5.1); SODIUM 141 MMOL/L (135-145); TOTAL CARBON DIOXIDE 26.5 MMOL/L (24-32); TOTAL PROTEIN 3.2 G/DL (6.4-8.2); eGFR 39 ML/MIN
[2018-07-21] MEDS: midazolam 100mg in NS 100ml 100 ML IV PRN (21:00)
[2018-07-21 21:04] LABS: INR 1.3 INR; PROTHROMBIN TIME 12.9 SECONDS (9.0-12.0)
[2018-07-21 21:05] LABS: D-DIMER 1.39 MG/L FEU (0-0.50)
[2018-07-21 21:06] LABS: PARTIAL THROMBOPLASTIN TIME 107 SECONDS (22-32)
--- NOTE | 2018-07-21 21:33 | NUR ---
Current labs reviewed, update called to Dr. Burrows. Orders received. Ectopy decreased p/electrolyte replacement. Will continue to monitor closely.
[2018-07-21 21:38] LABS: NUCLEATED RED BLOOD CELLS 5 /100WBC (0-0); TOTAL CELLS COUNTED 100
[2018-07-21 21:40] LABS: PLATELET ESTIMATE DECREASED
[2018-07-21 21:41] LABS: ANISOCYTOSIS 2+; POLYCHROMASIA 1+
[2018-07-21 21:44] LABS: LARGE PLATELETS MODERATE
[2018-07-21] MEDS: metroNIDAZOLE-Flagyl 500mg/NS 100 ML IV SCH (22:44)
[2018-07-22] VITALS (24 sets, daily range): BP systolic 63–128; BP diastolic 37–85
[2018-07-22] MEDS: piperacillin/tazo 3.375gm/50ml 50 ML IV SCH ×3 (00:40→16:00)
[2018-07-22] MEDS: pantoprazole 40MG/NS 100ML BAG 100 ML IV SCH ×4 (01:05→18:13)
[2018-07-22] MEDS: heparin 25,000 UNIT/250ml bag 250 ML IV SCH (01:14)
[2018-07-22] MEDS: vancomycin 250MG/10ML UD oral solution 10ML BOTTLE PO SCH ×3 (03:04→14:00)
[2018-07-22 03:31] LABS: ABG BASE EXCESS 2.8 mmol/L (-2.0-3.0); ABG HCO3 25.5 mmol/L (22.0-26.0); ABG OXYGEN SATURATION 98.2 % (95-98); ABG PCO2 (T) 32.9 mmHg (32.0-45.0); ABG PH (T) 7.508 (7.350-7.450); FCOHb 0.3 % (0.5-1.5); FMetHb 0.1 % (0.3-1.12); FO2Hb 97.8 % (94-100); MINUTE VOLUME 7 L/min; PATIENT TEMPERATURE 37.3; PEEP 8 cm H2O; RESPIRATORY RATE 16 b/min; RESPIRATORY RATE (OBSERVED) 17 b/min; TIDAL VOLUME 350 mL; TOTAL HEMOGLOBIN 10.7 G/dl (12.0-16.0)
[2018-07-22 03:48] LABS: ALANINE AMINOTRANSFERASE 28 U/L (12-78); ALBUMIN 1.5 G/DL (3.4-5.0); ALBUMIN/GLOBULIN RATIO 0.7 (1.1-1.5); ALKALINE PHOSPHATASE 59 IU/L (46-116); ANION GAP 9 (8-16); ASPARTATE AMINO TRANSFERASE 51 U/L (10-37); BILIRUBIN,TOTAL 0.7 MG/DL (0.1-1.0); BLOOD UREA NITROGEN 20 MG/DL (7-18); BUN/CREATININE RATIO 15.9 (6.6-38.0); CALCIUM 6.9 MG/DL (8.5-10.1); CHLORIDE 106 MMOL/L (99-107); CREATININE 1.26 MG/DL (0.40-0.90); GLUCOSE 159 MG/DL (70-104); MAGNESIUM 3.1 MG/DL (1.5-2.4); PHOSPHORUS 3.5 MG/DL (2.3-4.5); POTASSIUM 3.7 MMOL/L (3.5-5.1); SODIUM 141 MMOL/L (135-145); TOTAL PROTEIN 3.7 G/DL (6.4-8.2); eGFR 42 ML/MIN
[2018-07-22 04:01] LABS: BASOPHILS % (AUTO) 0.1 % (0-1); EOSINOPHILS % (AUTO) 0 % (0-6); HEMATOCRIT 29.7 % (35.0-45.0); HEMOGLOBIN 9.9 g/dl (12.0-16.0); LYMPHOCYTES # (AUTO) 1.4 X10'3 (1.1-4.8); LYMPHOCYTES % (AUTO) 4.6 % (21-51); MEAN CORPUSCULAR HEMOGLOBIN 29.8 PG (27.0-31.0); MEAN CORPUSCULAR HGB CONC 33.4 % (33.0-36.5); MEAN CORPUSCULAR VOLUME 89.1 FL (78-98); MONOCYTES # (AUTO) 1.8 X10'3 (0-0.9); MONOCYTES % (AUTO) 5.9 % (2-12); NEUTROPHILS % (AUTO) 89.4 % (42-75); PLATELET COUNT 117 X10'3 (140-440); RED BLOOD COUNT 3.34 X10'6 (4.20-5.60); RED CELL DISTRIBUTION WIDTH 17.9 % (11.5-14.5)
[2018-07-22 04:15] LABS: WHITE BLOOD COUNT 30.2 X10'3 (4.5-11.0)
[2018-07-22] MEDS: metroNIDAZOLE-Flagyl 500mg/NS 100 ML IV SCH ×2 (05:26→14:00)
--- NOTE | 2018-07-22 06:26 | NUR ---
Patient in room CICU 2008. I have received report from Vivian SIFUENTES and had the opportunity to ask questions and assume patient care.
--- NOTE | 2018-07-22 06:49 | NUR ---
PTT is 82 which meets the goal of 80-100, Heparin drip running at 500 units per hour and will stay at this rate.
[2018-07-22 07:33] LABS: NUCLEATED RED BLOOD CELLS 4 /100WBC (0-0); TOTAL CELLS COUNTED 100
[2018-07-22 07:34] LABS: ANISOCYTOSIS 2+; PLATELET ESTIMATE DECREASED; POLYCHROMASIA 1+
[2018-07-22] MEDS: metoprolol tartrate 25mg tablet PO SCH (07:46)
[2018-07-22] MEDS: lactobacillus rhamnosus 10,000 MMU CELLS/CAPSULE PO SCH (07:46)
[2018-07-22] MEDS: clopidogrel 75mg tablet PO SCH (07:47)
[2018-07-22] MEDS: simethicone 80mg chew tab PO SCH ×2 (07:47→13:00)
[2018-07-22] MEDS: furosemide 40mg/4ml inj IV SCH (07:47)
[2018-07-22] MEDS: LIDOcaine 5% patch TP SCH (08:00)
[2018-07-22] MEDS: aspirin 81mg tablet.DR PO SCH (08:00)
[2018-07-22] MEDS: lisinopril 10 MG tablet PO SCH (08:00)
[2018-07-22] MEDS: K and/or MAG REPLACEMENT MC SCH (08:00)
[2018-07-22] MEDS ORDERED: K and/or MAG REPLACEMENT MC SCH (08:00)
[2018-07-22] MEDS: dextrose 5%-1/2 normal saline 1,000 ML IV SCH (08:55)
[2018-07-22] MEDS: ipratropium/albuterol 3ml nebule NEB SCH ×2 (09:38→15:04)
--- NOTE | 2018-07-22 11:59 | NUR ---
is on the phone with the son Francisco Javier at the bedside, the decision is to make the patient DNR with comfort care. Leatha called and notified. Awaiting orders at this time
--- NOTE | 2018-07-22 12:49 | NUR ---
davie is going to input comfort orders, charge nurse notified.
[2018-07-22] MEDS: morphine 10mg/ml inj. IV PRN ×4 (15:54→22:17)
--- NOTE | 2018-07-22 16:09 | NUR ---
patient extubated per md order and placed on 2liters NC for comfort care measure, patient still non responsive, having lots of ectopy and HR is going up to 110 and then back to 80s. Morphine 4mg given per comfort care orders.
--- NOTE | 2018-07-22 16:39 | NUR ---
patients BP is 69/42 HR 95 sats between 90-94
--- NOTE | 2018-07-22 18:27 | NUR ---
Problems reprioritized. Patient report given, questions answered & plan of care reviewed with Vivian SIFUENTES.
--- NOTE | 2018-07-22 18:30 | NUR ---
Patient in room CICU 2007. I have received report from Courtney SIFUENTES and had the opportunity to ask questions and assume patient care. Comfort care measures in place. Pt hypotensive, BP:75/21. HR low 100's w/frequent PVC's. sats:64% on 2LNC. unresponsive to all stimuli with snoring respirations. No family at bedside.
[2018-07-22] MEDS ORDERED: scopolamine 1.5mg patch.TD72 TD SCH (18:40)
[2018-07-22] MEDS ORDERED: VANCOMYCIN LEVEL IV ONE (19:30)
[2018-07-22] MEDS: LORazepam 2 mg/ml vial IV PRN (20:19)
--- NOTE | 2018-07-22 22:26 | NUR ---
Pt remains unresponsive. Comfort care measures in place. HR in the low 100's w/frequent PVC's, BP:66/37, sats:44% on 2LNC. No family at bedside/
[2018-07-23] VITALS (19 sets, daily range): BP systolic 59–86; BP diastolic 34–63
[2018-07-23] MEDS: morphine 10mg/ml inj. IV PRN ×7 (01:04→22:03)
[2018-07-23] MEDS: LORazepam 2 mg/ml vial IV PRN ×4 (01:04→19:26)
--- NOTE | 2018-07-23 04:47 | NUR ---
Pt remains unresponsive. Comfort care measures in place. HR in the low 100's w/frequent PVC's, BP:67/42, sats:92% on 2LNC. No family at bedside. Will continue to monitor closely.
--- NOTE | 2018-07-23 06:21 | NUR ---
Problems reprioritized. Patient report given, questions answered & plan of care reviewed with Courtney SIFUENTES.
--- NOTE | 2018-07-23 09:20 | NUR ---
Reassessment: Patient's code status has been changed to DNR with comfort care. Pt with documented 200 mL colostomy output 07/22. Will continue to follow. Recommend: 1. Monitor need for additional bowel care Addendum: 07/23/18 at [address] Amended: Links added.
--- NOTE | 2018-07-23 09:28 | NUR ---
patient remains on comfort care, BP is currently 73/44 and HR is 97 with a lot of PVCs still. Sats are currently 78% on 2 liters NC. Patient is comfortable and not showing any signs of distress, Morphine and ativan are being provided per MD order
--- NOTE | 2018-07-23 15:21 | NUR ---
patients BP is 59/42, HR 94 sats 96% on 2 liters NC, still receiving morphine and ativan per comfort care orders
--- NOTE | 2018-07-23 17:43 | NUR ---
Received report from ICU nurse Nasima SIFUENTES. Awaiting arrival to room 341.
--- NOTE | 2018-07-23 17:56 | NUR ---
Patient arrived to room 341.
--- NOTE | 2018-07-23 18:05 | NUR ---
transferred patient to room 341 on the surgical floor, Problems reprioritized. Patient report given, questions answered & plan of care reviewed with Meme SIFUENTES.
--- NOTE | 2018-07-23 18:30 | NUR ---
Patient in room [facility] 341. I have received report from MARIA Valentine and had the opportunity to ask questions and assume patient care. Addendum: 07/23/18 at 1914 by Estephania Valentine RN Amended: Links added.
--- NOTE | 2018-07-23 18:32 | NUR ---
Problems reprioritized. Patient report given, questions answered & plan of care reviewed with Flori SIFUENTES.
[2018-07-24] MEDS: morphine 10mg/ml inj. IV PRN ×5 (01:59→21:47)
[2018-07-24] MEDS: LORazepam 2 mg/ml vial IV PRN ×3 (01:59→21:46)
--- NOTE | 2018-07-24 06:00 | NUR ---
Problems reprioritized. Patient report given, questions answered & plan of care reviewed with MARIA BOB. Addendum: 07/24/18 at 0707 by Estephania Valentine RN Amended: Links added.
--- NOTE | 2018-07-24 06:30 | NUR ---
Patient in room [facility] 341. I have received report from Flori SIFUENTES and had the opportunity to ask questions and assume patient care.
--- NOTE | 2018-07-24 11:18 | NUR ---
Temp 102[address] Lazcano aware.
[2018-07-24 11:19] VITALS: BP 96/41
--- NOTE | 2018-07-24 18:30 | NUR ---
Patient in room [facility] 341. I have received report from MARIA BOB and had the opportunity to ask questions and assume patient care. Addendum: 07/24/18 at 1916 by Estephania Valentine RN Amended: Links added.
--- NOTE | 2018-07-24 18:53 | NUR ---
Problems reprioritized. Patient report given, questions answered & plan of care reviewed with kingsley SIFUENTES.
--- NOTE | 2018-07-24 19:03 | NUR ---
FINGERS ARE COOL TO TOUCH, RIGHT TOES DARK DUSKY/PURPLE. BILAT FEET COOL TO TOUCH. Addendum: 07/24/18 at 1914 by Estephania Valentine RN Amended: Links added.
[2018-07-25] MEDS: morphine 10mg/ml inj. IV PRN ×4 (00:56→12:55)
[2018-07-25] MEDS: LORazepam 2 mg/ml vial IV PRN (02:58)
--- NOTE | 2018-07-25 06:30 | NUR ---
Problems reprioritized. Patient report given, questions answered & plan of care reviewed with MARIA Kern. Addendum: 07/25/18 at 0630 by Estephania Valentine RN Amended: Links added.
[2018-07-25 08:00] VITALS: BP 66/30
--- NOTE | 2018-07-25 11:58 | NUR ---
Central line discontinued per MD order.
--- NOTE | 2018-07-25 18:54 | NUR ---
Problems reprioritized. Patient report given, questions answered & plan of care reviewed with MARIA Farfan.
--- NOTE | 2018-07-25 18:55 | NUR ---
Patient in room [facility] 341. I have received report from MARIA Thao and had the opportunity to ask questions and assume patient care.
--- NOTE | 2018-07-25 19:25 | NUR ---
No blood pressure, no pulse, pupils fixed and dialated. Tele monitor without capture. Patient at 1925. IV out, tele monitor off, wound vac off, chest tubes off. Family contacted and came to visit. Postmortem care given, organ doners contacted and said that they would call back, [facility] mortuary picked up body per family's choice.
== END 2018-07-25 19:25 | disposition expired | DRG 853 ==
LOC: ER 06:28 → ED HOLD 11:59 → EDBEDREQSVC 20:16 → SUR 3N 21:00 → CICU 2S 07-12 16:19 → SUR 3N 07-17 13:30 → PCU 3S 07-18 15:50 → CICU 2S 07-19 16:50 → SUR 3N 07-23 18:07
PROVIDERS: ADMIT Internal Medicine; ATTEND Family Medicine
PROC: 4A02XM4 Measurement of Cardiac Total Activity, External Approach (ICD-10-PCS; 2018-06-29)
PROC: 3E033HZ Introduction of Radioactive Substance into Peripheral Vein, Percutaneous Approach (ICD-10-PCS; 2018-06-29)
PROC: B4201ZZ Computerized Tomography (CT Scan) of Abdominal Aorta using Low Osmolar Contrast (ICD-10-PCS; 2018-07-10)
PROC: B4241ZZ Computerized Tomography (CT Scan) of Superior Mesenteric Artery using Low Osmolar Contrast (ICD-10-PCS; 2018-07-10)
PROC: B4281ZZ Computerized Tomography (CT Scan) of Bilateral Renal Arteries using Low Osmolar Contrast (ICD-10-PCS; 2018-07-10)
PROC: B4211ZZ Computerized Tomography (CT Scan) of Celiac Artery using Low Osmolar Contrast (ICD-10-PCS; 2018-07-10)
PROC: B42H1ZZ Computerized Tomography (CT Scan) of Bilateral Lower Extremity Arteries using Low Osmolar Contrast (ICD-10-PCS; 2018-07-10)
PROC: 04CK0ZZ Extirpation of Matter from Right Femoral Artery, Open Approach (ICD-10-PCS; 2018-07-12)
PROC: 30233N1 Transfusion of Nonautologous Red Blood Cells into Peripheral Vein, Percutaneous Approach (ICD-10-PCS; 2018-07-12)
PROC: 02HV33Z Insertion of Infusion Device into Superior Vena Cava, Percutaneous Approach (ICD-10-PCS; 2018-07-12)
PROC: B548ZZA Ultrasonography of Superior Vena Cava, Guidance (ICD-10-PCS; 2018-07-12)
PROC: 041H0JQ Bypass Right External Iliac Artery to Lower Extremity Artery with Synthetic Substitute, Open Approach (ICD-10-PCS; principal; 2018-07-12 12:26)
PROC: 30233N1 Transfusion of Nonautologous Red Blood Cells into Peripheral Vein, Percutaneous Approach (ICD-10-PCS; 2018-07-13)
PROC: 5A09457 Assistance with Respiratory Ventilation, 24-96 Consecutive Hours, Continuous Positive Airway Pressure (ICD-10-PCS; 2018-07-19)
PROC: 04CM0ZZ Extirpation of Matter from Right Popliteal Artery, Open Approach (ICD-10-PCS; 2018-07-20)
PROC: 04CY0ZZ Extirpation of Matter from Lower Artery, Open Approach (ICD-10-PCS; 2018-07-20)
PROC: 30233N1 Transfusion of Nonautologous Red Blood Cells into Peripheral Vein, Percutaneous Approach (ICD-10-PCS; 2018-07-20)
PROC: 0W9B30Z Drainage of Left Pleural Cavity with Drainage Device, Percutaneous Approach (ICD-10-PCS; 2018-07-20)
PROC: 0W9930Z Drainage of Right Pleural Cavity with Drainage Device, Percutaneous Approach (ICD-10-PCS; 2018-07-20)
PROC: B4201ZZ Computerized Tomography (CT Scan) of Abdominal Aorta using Low Osmolar Contrast (ICD-10-PCS; 2018-07-20)
PROC: B4241ZZ Computerized Tomography (CT Scan) of Superior Mesenteric Artery using Low Osmolar Contrast (ICD-10-PCS; 2018-07-20)
PROC: B4281ZZ Computerized Tomography (CT Scan) of Bilateral Renal Arteries using Low Osmolar Contrast (ICD-10-PCS; 2018-07-20)
PROC: B42H1ZZ Computerized Tomography (CT Scan) of Bilateral Lower Extremity Arteries using Low Osmolar Contrast (ICD-10-PCS; 2018-07-20)
PROC: B4211ZZ Computerized Tomography (CT Scan) of Celiac Artery using Low Osmolar Contrast (ICD-10-PCS; 2018-07-20)
PROC: B548ZZA Ultrasonography of Superior Vena Cava, Guidance (ICD-10-PCS; 2018-07-20)
PROC: 02HV33Z Insertion of Infusion Device into Superior Vena Cava, Percutaneous Approach (ICD-10-PCS; 2018-07-20)
PROC: 30233N1 Transfusion of Nonautologous Red Blood Cells into Peripheral Vein, Percutaneous Approach (ICD-10-PCS; 2018-07-21)
PROC: B4201ZZ Computerized Tomography (CT Scan) of Abdominal Aorta using Low Osmolar Contrast (ICD-10-PCS; 2018-07-21)
PROC: B4241ZZ Computerized Tomography (CT Scan) of Superior Mesenteric Artery using Low Osmolar Contrast (ICD-10-PCS; 2018-07-21)
PROC: B4281ZZ Computerized Tomography (CT Scan) of Bilateral Renal Arteries using Low Osmolar Contrast (ICD-10-PCS; 2018-07-21)
PROC: B4211ZZ Computerized Tomography (CT Scan) of Celiac Artery using Low Osmolar Contrast (ICD-10-PCS; 2018-07-21)
PROC: B42H1ZZ Computerized Tomography (CT Scan) of Bilateral Lower Extremity Arteries using Low Osmolar Contrast (ICD-10-PCS; 2018-07-21)
DX: A41.9 Sepsis, unspecified organism (principal); J96.20 Acute and chronic respiratory failure, unspecified whether with hypoxia or hypercapnia; J18.9 Pneumonia, unspecified organism; I50.33 Acute on chronic diastolic (congestive) heart failure; N39.0 Urinary tract infection, site not specified; T82.868A Thrombosis due to vascular prosthetic devices, implants and grafts, initial encounter; A04.72 Enterocolitis due to Clostridium difficile, not specified as recurrent; J44.1 Chronic obstructive pulmonary disease with (acute) exacerbation; N17.9 Acute kidney failure, unspecified; J44.0 Chronic obstructive pulmonary disease with (acute) lower respiratory infection; K92.1 Melena; I73.9 Peripheral vascular disease, unspecified; I25.10 Atherosclerotic heart disease of native coronary artery without angina pectoris; I27.20 Pulmonary hypertension, unspecified; Z93.3 Colostomy status; I48.0 Paroxysmal atrial fibrillation; I99.8 Other disorder of circulatory system; K21.9 Gastro-esophageal reflux disease without esophagitis; F32.9 Major depressive disorder, single episode, unspecified; G89.29 Other chronic pain; M19.90 Unspecified osteoarthritis, unspecified site; M54.5 Low back pain; I11.0 Hypertensive heart disease with heart failure; B96.20 Unspecified Escherichia coli [E. coli] as the cause of diseases classified elsewhere; D64.9 Anemia, unspecified; Y83.2 Surgical operation with anastomosis, bypass or graft as the cause of abnormal reaction of the patient, or of later complication, without mention of misadventure at the time of the procedure; R74.8 Abnormal levels of other serum enzymes; M06.9 Rheumatoid arthritis, unspecified; Z51.5 Encounter for palliative care; Z74.01 Bed confinement status; Z99.3 Dependence on wheelchair; Z90.710 Acquired absence of both cervix and uterus; Z90.49 Acquired absence of other specified parts of digestive tract; Z99.81 Dependence on supplemental oxygen; Z79.899 Other long term (current) drug therapy; Z79.01 Long term (current) use of anticoagulants; Z87.891 Personal history of nicotine dependence; Y92.89 Other specified places as the place of occurrence of the external cause
CPT/HCPCS: 32557; 36415; 36600; 71045; 71275; 73590; 74018; 74176; 74177; 75635; 76000; 78452; 80047; 80048; 80053; 80069; 81001; 82042; 82150; 82330; 82803; 82945; 82948; 83605; 83615; 83735; 83880; 83986; 84100; 84145; 84157; 84484; 84540; 85018; 85025; 85027; 85379; 85384; 85610; 85730; 86885; 86900; 86901; 86920; 87040; 87070; 87075; 87077; 87088; 87186; 87324; 87449; 87493; 88304; 92616; 93005; 93017; 93306; 93922; 93925; 93926; 93971; 94002; 94003; 94640; 94660; 94667; 94760; 96365; 96375; 97110; 97162; 97163; 97530; 99285; A6258; A7000; A9500; C1757; C1758; C1781; C9113; G0378; J0280; J0360; J0690; J0694; J0696; J1160; J1170; J1644; J1650; J1885; J1940; J2001; J2060; J2175; J2250; J2270; J2405; J2543; J2704; J2720; J3010; J3370; J3475; J3480; J3490; J7030; J7070; J7120; P9016; P9045; P9047; Q9963; Q9967